=== PATIENT | female | born 1960 | race American Indian/Alaskan Native ===

== ENCOUNTER 2017-01-03 14:32 | Emergency (ER) | payer MEDICARE | END 2017-01-03 15:48 | disposition home or self-care (01) | LOC: ED 14:32 | DX: R11.2 Nausea with vomiting, unspecified (principal); K59.00 Constipation, unspecified; Z53.21 Procedure and treatment not carried out due to patient leaving prior to being seen by health care provider ==

== ENCOUNTER 2017-01-03 15:18 | Emergency (ER) | payer MEDICARE ==
[2017-01-03 15:47] VITALS: BP 141/81
[2017-01-03 16:02] LABS: Basophils % (Auto) 1.4 % (0.0-1.8); Eosinophils % (Auto) 1.3 % (0.0-4.3); Hemoglobin 12.7 gm/dl (10.1-14.3); Mean Corpuscular HGB Conc 33 % (30-34); Mean Corpuscular Hemoglobin 30 pg (28-32); Mean Corpuscular Volume 91 fl (79-97); Platelet Count 175 K/mm3 (140-440); Red Blood Count 4.27 M/mm3 (3.65-5.03); Red Cell Distribution Width 19.6 % (13.2-15.2); White Blood Count 6.5 K/mm3 (4.5-11.0)
[2017-01-03 16:31] LABS: BUN/Creatinine Ratio 8.25; Calcium 9.2 mg/dL (8.4-10.2); Chloride 97.4 mmol/L (98-107); Potassium 4.3 mmol/L (3.6-5.0)
== END 2017-01-03 23:00 | disposition left against medical advice (07) ==
LOC: ED 15:18
DX: R11.2 Nausea with vomiting, unspecified (principal); K59.00 Constipation, unspecified; R19.7 Diarrhea, unspecified; Z53.21 Procedure and treatment not carried out due to patient leaving prior to being seen by health care provider
CPT/HCPCS: 36415; 80048; 85025

== ENCOUNTER 2018-11-28 15:09 | Inpatient (IN) | payer MEDICARE ==
--- NOTE | 2018-11-28 15:37 | Event Note ---
ED Screening Note ED Screening Note: pt presents with N/V/D for two days generalized weakness dialysis pt states she last went on wednesday, did not go today family states she is at baseline son requesting [facility] placement PMHx HTN, DM, hyperparathyroidism no allergies to meds This initial assessment/diagnostic orders/clinical plan/treatment(s) is/are subject to change based on patients health status, clinical progression and re- assessment by fellow clinical providers in the ED. Further treatment and workup at subsequent clinical providers discretion. Patient/guardian urged not to elope from the ED as their condition may be serious if not clinically assessed and managed. Initial orders include: labs, urine, EKG
[2018-11-28] MEDS ORDERED: ZOFRAN ODT ONE (15:39)
[2018-11-28 18:42] LABS: Basophils # (Auto) 0.1 K/mm3 (0.0-0.1); Basophils % (Auto) 0.9 % (0.0-1.8); Eosinophils # (Auto) 0.1 K/mm3 (0.0-0.4); Eosinophils % (Auto) 0.9 % (0.0-4.3); Hematocrit 35.6 % (30.3-42.9); Hemoglobin 11.8 gm/dl (10.1-14.3); Lymphocytes # (Auto) 2.1 K/mm3 (1.2-5.4); Lymphocytes % (Auto) 26.8 % (13.4-35.0); Mean Corpuscular HGB Conc 33 % (30-34); Mean Corpuscular Volume 89 fl (79-97); Monocytes # (Auto) 0.5 K/mm3 (0.0-0.8); Monocytes % (Auto) 6.3 % (0.0-7.3); Platelet Count 126 K/mm3 (140-440); Red Blood Count 4.02 M/mm3 (3.65-5.03); Red Cell Distribution Width 16.3 % (13.2-15.2)
[2018-11-28 18:54] LABS: Albumin 3.6 g/dL (3.9-5); Calcium 9.2 mg/dL (8.4-10.2)
[2018-11-28 19:29] LABS: Chol/HDL Ratio 2.25 %
[2018-11-28] MEDS ORDERED: ZOFRAN ODT PO ONE (21:53)
--- NOTE | 2018-11-28 23:32 | Emergency Department Report ---
ED General Adult HPI - General Chief complaint: Weakness Stated complaint: WEAK/VOMITING AND BODY PAIN Time Seen by Provider: 11/28/18 15:33 Source: patient Mode of arrival: Wheelchair Limitations: Physical Limitation - History of Present Illness Initial comments: Ms. Moise is a 58 yo female with hx of ESRD, anemia, Diabetes mellitus who presents with nausea/vomiting and involuntary movements. She lives in [place]. HOwever, her son brought her to [place] on yesterday to be her caregiver. For the past 4-5 months, she has declined. She has had involuntary movements of her head. She has had nausea/vomiting. She had generalized pain. Referred to ED by loss prevention representative from [facility]. Son desires rehabilitation at [facility] to get her strength up. He does not know when she lasted walked. -: Gradual, month(s) (4-5) Consistency: constant Improves with: none Worsens with: none Associated Symptoms: loss of appetite, nausea/vomiting - Related Data Home Medications Medication Instructions Recorded Confirmed Last Taken Humalog 100 UNITS/ML Kwikpen 06/23/16 Unknown Insulin Glargine [Lantus VIAL] 06/23/16 Unknown Previous Rx's Medication Instructions Recorded Last Taken Type Calcitriol [Rocaltrol] 0.5 mcg PO QDAY #30 capsule 06/30/16 Unknown Rx Folic Acid/Vit B Comp W-C [Renal 1 cap PO QDAY #30 capsule 06/30/16 Unknown Rx Caps] Metoprolol [Lopressor TAB] 100 mg PO BID #60 tablet 06/30/16 Unknown Rx NIFEdipine XL [Procardia Xl] 60 mg PO Q12HR #60 tablet 06/30/16 Unknown Rx hydrALAZINE [Apresoline TAB] 100 mg PO Q8HR #90 tablet 06/30/16 Unknown Rx Allergies Allergy/AdvReac Type Severity Reaction Status Date / Time No Known Allergies Allergy Unverified 06/22/16 20:11 ED Review of Systems ROS: Stated complaint: WEAK/VOMITING AND BODY PAIN Other details as noted in HPI Comment: All other systems reviewed and negative Constitutional: malaise Gastrointestinal: nausea, vomiting Musculoskeletal: myalgia ED Past Medical Hx - Past Medical History Previous Medical History?: Yes Hx Hypertension: Yes Hx Congestive Heart Failure: No Hx Diabetes: Yes Hx GERD: Yes Hx Asthma: No Hx COPD: No - Surgical History Past Surgical History?: Yes Additional Surgical History: Blind Right eye - Social History Smoking Status: Unknown if ever smoked Substance Use Type: None - Medications Home Medications: Home Medications Medication Instructions Recorded Confirmed Last Taken Type Humalog 100 UNITS/ML Kwikpen 06/23/16 Unknown History Insulin Glargine [Lantus VIAL] 06/23/16 Unknown History Calcitriol [Rocaltrol] 0.5 mcg PO QDAY #30 capsule 06/30/16 Unknown Rx Folic Acid/Vit B Comp W-C [Renal 1 cap PO QDAY #30 capsule 06/30/16 Unknown Rx Caps] Metoprolol [Lopressor TAB] 100 mg PO BID #60 tablet 06/30/16 Unknown Rx NIFEdipine XL [Procardia Xl] 60 mg PO Q12HR #60 tablet 06/30/16 Unknown Rx hydrALAZINE [Apresoline TAB] 100 mg PO Q8HR #90 tablet 06/30/16 Unknown Rx ED Physical Exam - General Limitations: Physical Limitation General appearance: alert, in no apparent distress, other (appears chronically ill) - Head Head exam: Present: atraumatic, normocephalic - Eye Eye exam: Present: other (right eye enucleation evident). Absent: scleral icterus, conjunctival injection - ENT ENT exam: Present: mucous membranes moist - Neck Neck exam: Present: normal inspection, full ROM - Respiratory Respiratory exam: Present: normal lung sounds bilaterally. Absent: respiratory distress, wheezes, rales, rhonchi, stridor - Cardiovascular Cardiovascular Exam: Present: regular rate, normal rhythm, normal heart sounds. Absent: systolic murmur, diastolic murmur, rubs, gallop - GI/Abdominal GI/Abdominal exam: Present: soft, normal bowel sounds. Absent: distended, tenderness, guarding, rebound - Extremities Exam Extremities exam: Present: normal inspection - Neurological Exam Neurological exam: Present: alert, oriented X3 - Psychiatric Psychiatric exam: Present: normal mood, flat affect - Skin Skin exam: Present: warm, dry, intact, normal color. Absent: rash ED Course Vital Signs 11/28/18 15:36 Temperature 98.5 F Pulse Rate 95 H Respiratory 18 Rate Blood Pressure 109/57 O2 Sat by Pulse 97 Oximetry ED Medical Decision Making - Lab Data Result diagrams: 11/28/18 17:59 11/28/18 17:59 - EKG Data 11/28/18 23:31 EKG obtained 2131 Normal sinus rhythm rate 90 beats a minute normal axis prolonged QT interval no ST elevation - Radiology Data Radiology results: report reviewed - Medical Decision Making Ms. Moise is a 58 yo female who has had declining health over the past several months. Son Eric has spoken with loss prevention representative from [facility]. The loss prevention representative recommended evaluation in the hospital and admission before placement. The multiple concerns of the son does not appear to be acute. 1. Inability to walk due to poor conditioning she has intact strength in the lower extremities, however she is frail 2. Involuntary movements of the head appears to be intermittent, will need outpatient neurology workup 3. Nausea vomiting, poor appetite. No vomiting in the ED. No indication of obstruction. I spoke with son at length. No evidence of acute medical condition which needs stabilization in the emergency department. He has arranged for outpatient dialysis. He also has a new PCP appointment on next Wednesday. We will keep the patient in the ER overnight. She will see case management tomorrow. She is medically clear for either placement at a [place] [facility] facility for rehabilitation. She is also appropriate for discharge home. Elevated troponin attributed to renal disease. No indication of acute coronary syndrome. Critical care attestation.: If time is entered above; I have spent that time in minutes in the direct care of this critically ill patient, excluding procedure time. ED Disposition Clinical Impression: ESRD needing dialysis, Physical deconditioning, Nausea & vomiting, Involuntary movements, Diabetes mellitus Disposition: [id number]/TX-70 ANOTHER TYPE HLTHCARE Is pt being admited?: No Does the pt Need Aspirin: No Condition: Stable Referrals: DORIS ARDON MD [Primary Care Provider] - 3-5 Days
[2018-11-28] MEDS ORDERED: ZOFRAN IV ONE (23:39)
[2018-11-29] MEDS ORDERED: ZOFRAN ONE (06:27)
[2018-11-29] MEDS ORDERED: TYLENOL PO PRN (13:40)
[2018-11-29] MEDS ORDERED: SODIUM CHLORIDE FLUSH SYRINGE 10 ML IV PRN (13:40)
[2018-11-29] MEDS ORDERED: ZOFRAN IV PRN (13:40)
--- NOTE | 2018-11-29 13:53 | History and Physical Report ---
History of Present Illness Chief complaint: She is weak History of present illness: 58 YO Female with ESRD on HD(M,W,F), Anemia, DM, Debility, Dementia presents to ED for evaluation. Pt provides minimal history. Detailed patient history provided by son who is at bedside during exam and interview. As per son, the patient has experienced progressive weakness over the past 5 months. Pt was recently relocated to the [place] area, but has experienced continued decline. Pt is currently unable to independently conduct activities of daily living, and requires 4-5/6 Assistance. Pt is bedbound, and unable to ambulate. Pt was taken to dialysis center for routine dialysis, but was unable to undergo dialysis. Pt transported to [facility] by private vehicle. Pt seen and evaluated in ED and found to have ESRD, Debility, Hypertensive Urgency. Pt admitted to medical floor. Prior admission on 06/23/16 reviewed. Nephrology consulted in ED for urgent dialysis. Case management consulted for D/C planning and placement. No further history obtainable. Past History Past Medical History: diabetes, ESRD, GERD, hypertension, other (Debility,) Past Surgical History: Other (Right Eye) Social history: , lives with family. denies: smoking, alcohol abuse, prescription drug abuse Family history: diabetes, hypertension Medications and Allergies Allergies Allergy/AdvReac Type Severity Reaction Status Date / Time No Known Allergies Allergy Unverified 06/22/16 20:11 Home Medications Medication Instructions Recorded Confirmed Last Taken Type AtorvaSTATin [Lipitor] 10 mg PO QHS 11/29/18 11/29/18 Unknown History Hydralazine HCl 50 mg PO DAILY 11/29/18 11/29/18 Unknown History Losartan [Cozaar] 25 mg PO QDAY 11/29/18 11/29/18 Unknown History Metoclopramide HCl [Reglan TAB] 5 mg PO QID 11/29/18 11/29/18 Unknown History Metoprolol Succinate 200 mg PO DAILY 11/29/18 11/29/18 Unknown History Minoxidil [Loniten] 2.5 mg PO BID 11/29/18 11/29/18 Unknown History Ondansetron [Zofran Odt] 4 mg PO Q8HR 11/29/18 11/29/18 Unknown History Pantoprazole [Protonix TAB] 20 mg QDAY 11/29/18 11/29/18 Unknown History Sertraline [Zoloft] 50 mg PO QDAY 11/29/18 11/29/18 Unknown History Sevelamer Carbonate [Renvela] 800 mg PO TIDWM 11/29/18 11/29/18 Unknown History Valsartan [Diovan] 320 mg PO QDAY 11/29/18 11/29/18 Unknown History amLODIPine [Norvasc] 10 mg PO DAILY 11/29/18 11/29/18 Unknown History Active Meds: Active Medications Acetaminophen (Tylenol) 650 mg PO Q4H PRN PRN Reason: Pain MILD(1-3)/Fever >100.5/POWERS Ondansetron HCl (Zofran) 4 mg IV Q8H PRN PRN Reason: Nausea And Vomiting Sodium Chloride (Sodium Chloride Flush Syringe 10 Ml) 10 ml IV BID SALTY Sodium Chloride (Sodium Chloride Flush Syringe 10 Ml) 10 ml IV PRN PRN PRN Reason: LINE FLUSH Review of Systems ROS unobtainable: due to mental status Exam - Constitutional Vitals: Temp Pulse Resp BP Pulse Ox 98.5 F 79 15 179/83 100 11/28/18 15:36 11/29/18 08:10 11/29/18 08:10 11/29/18 08:10 11/29/18 08:10 General appearance: Present: mild distress, cachectic - EENT Eyes: Present: PERRL ENT: hearing intact, clear oral mucosa - Neck Neck: Present: supple, normal ROM - Respiratory Respiratory effort: normal Respiratory: bilateral: CTA - Cardiovascular Heart Sounds: Present: S1 & S2. Absent: rub, click - Extremities Extremities: pulses symmetrical, No edema Peripheral Pulses: within normal limits - Abdominal General gastrointestinal: Present: soft, non-tender, non-distended, normal bowel sounds Female genitourinary: Present: normal - Integumentary Integumentary: Present: clear, dry, decreased turgor - Musculoskeletal Musculoskeletal: generalized weakness - Psychiatric Psychiatric: appropriate mood/affect, no intact judgment & insight, no memory intact - Neurologic Neurologic: CNII-XII intact, moves all extremities, no gait normal Results - Labs CBC & Chem 7: 11/28/18 17:59 11/28/18 17:59 Labs: Abnormal lab results 11/28/18 11/28/18 11/28/18 Range/Units 17:59 17:59 22:30 RDW 16.3 H (13.2-15.2) % Plt Count 126 L (140-440) K/mm3 Sodium 136 L (137-145) mmol/L Potassium 3.5 L (3.6-5.0) mmol/L BUN 36 H (7-17) mg/dL Creatinine 6.5 H (0.7-1.2) mg/dL Troponin T 0.243 H* 0.256 H* (0.00-0.029) ng/mL Albumin 3.6 L (3.9-5) g/dL Assessment and Plan - Patient Problems (1) ESRD needing dialysis Current Visit: Yes Status: Acute Plan to address problem: Nephrology consulted in ED, dialysis as per renal team, strict I/O, daily weight, monitor uop q shift, avoid nephrotoxic agents (2) Debility Current Visit: Yes Status: Acute Plan to address problem: PT consulted, fall percautions, neuro checks. (3) GERD (gastroesophageal reflux disease) Current Visit: Yes Status: Acute Qualifiers: Esophagitis presence: without esophagitis Qualified Code(s): K21.9 - Gastro-esophageal reflux disease without esophagitis Plan to address problem: PPI therapy, (4) Hypertensive urgency, malignant Current Visit: Yes Status: Acute Plan to address problem: Monitor BP q shift, dialysis as per renal team, IV hydralazine prn, resume prehospital antihypertensive therapy (5) Diabetes mellitus Current Visit: Yes Status: Acute Plan to address problem: ADA diet, insulin, accu check, hypoglycemia protocol (6) DVT prophylaxis Current Visit: Yes Status: Acute Plan to address problem: SCD to BLE while in bed, prophylactic heparin
[2018-11-29] MEDS ORDERED: NACL 0.9% 100 ML IV PRN (14:50)
[2018-11-29] MEDS ORDERED: NON-FORMULARY (Metoclopramide Hcl [Reglan Tab] 5 MG) PO SCH (18:00)
--- NOTE | 2018-11-29 19:45 | Consultation ---
History of Present Illness - Reason for Consult Consult date: 11/29/18 end stage renal disease - History of Present Illness The patient is a 56 year old AAF who is known to our service with history significant for DM type 2, HTN, Diabetic Retinopathy, CVA and ESRD on hemodialysis (MWF) who presented to the emergency department by EMS from home with complaint of nausea, vomiting and involuntary movements. She moved to [place] with her son about 10 days ago. Patient is a very poor historian and no family member at the bedside. For the past 4-5 months she has declined. She has involuntary movements of her head and has generalized pain. Patient was last dialyzed on 11/25/2018 and missed dialysis yesterday. Patient's son wants me to take care of his dialysis care since I know her in the past. Past History Past Medical History: diabetes, dialysis, ESRD, hypertension, hyperlipidemia Medications and Allergies Allergies Allergy/AdvReac Type Severity Reaction Status Date / Time No Known Allergies Allergy Unverified 06/22/16 20:11 Home Medications Medication Instructions Recorded Confirmed Last Taken Type AtorvaSTATin [Lipitor] 10 mg PO QHS 11/29/18 11/29/18 Unknown History Hydralazine HCl 50 mg PO DAILY 11/29/18 11/29/18 Unknown History Losartan [Cozaar] 25 mg PO QDAY 11/29/18 11/29/18 Unknown History Metoclopramide HCl [Reglan TAB] 5 mg PO QID 11/29/18 11/29/18 Unknown History Metoprolol Succinate 200 mg PO DAILY 11/29/18 11/29/18 Unknown History Minoxidil [Loniten] 2.5 mg PO BID 11/29/18 11/29/18 Unknown History Ondansetron [Zofran Odt] 4 mg PO Q8HR 11/29/18 11/29/18 Unknown History Pantoprazole [Protonix TAB] 20 mg QDAY 11/29/18 11/29/18 Unknown History Sertraline [Zoloft] 50 mg PO QDAY 11/29/18 11/29/18 Unknown History Sevelamer Carbonate [Renvela] 800 mg PO TIDWM 11/29/18 11/29/18 Unknown History Valsartan [Diovan] 320 mg PO QDAY 11/29/18 11/29/18 Unknown History amLODIPine [Norvasc] 10 mg PO DAILY 11/29/18 11/29/18 Unknown History Active Meds: Active Medications Acetaminophen (Tylenol) 650 mg PO Q4H PRN PRN Reason: Pain MILD(1-3)/Fever >100.5/POWERS Amlodipine Besylate (Norvasc) 10 mg PO DAILY [facility] Atorvastatin Calcium (Lipitor) 10 mg PO QHS [facility] Sodium Chloride (Nacl 0.9%) 100 mls @ 999 mls/hr IV PARMJIT PRN PRN Reason: Hypotension Losartan Potassium (Cozaar) 25 mg PO QDAY [facility] Metoclopramide HCl (Reglan) 5 mg PO QID [facility] Metoprolol Succinate (Toprol Xl) 200 mg PO QDAY [facility] Minoxidil (Loniten) 2.5 mg PO BID [facility] Miscellaneous Medication (Hydralazine Hcl [Hydralazine Hcl]) 50 mg PO DAILY [facility] Ondansetron HCl (Zofran) 4 mg IV Q8H PRN PRN Reason: Nausea And Vomiting Ondansetron HCl (Zofran Odt) 4 mg PO Q8HR [facility] Pantoprazole Sodium (Protonix) 20 mg PO QDAY [facility] Sertraline HCl (Zoloft) 50 mg PO QDAY [facility] Sevelamer Carbonate (Renvela) 800 mg PO TIDWM [facility] Sodium Chloride (Sodium Chloride Flush Syringe 10 Ml) 10 ml IV BID [facility] Sodium Chloride (Sodium Chloride Flush Syringe 10 Ml) 10 ml IV PRN PRN PRN Reason: LINE FLUSH Valsartan (Diovan) 320 mg PO QDAY [facility] Review of Systems ROS unobtainable: due to mental status Exam - Vital Signs Vital signs: Vital Signs Temp Pulse Resp BP Pulse Ox 98.5 F 95 H 18 109/57 97 11/28/18 15:36 11/28/18 15:36 11/28/18 15:36 11/28/18 15:36 11/28/18 15:36 - General Appearance General appearance: well-developed, appears stated age, other (no distress) EENT: ATNC, PERRL, mucous membranes dry Neck: Present: neck supple, trachea midline Respiratory: Clear to Ascultation Heart: regular, S1S2, no murmurs Gastrointestinal: Present: normoactive bowel sounds. Absent: tenderness, distended Integumentary: no rash, warm and dry Neurologic: confused, disoriented, other (L UE weakness, involuntary movements of the head noted) Musculoskeletal: Present: other (L hand contractures noted, L arm AVF) Results - Lab Results 11/28/18 17:59 11/28/18 17:59 Most recent lab results Calcium 9.2 mg/dL (8.4-10.2) 11/28/18 17:59 Phosphorus 3.20 mg/dL (2.5-4.5) 11/28/18 17:59 Magnesium 2.10 mg/dL (1.7-2.3) 11/28/18 17:59 Assessment and Plan 1. ESRD: Patient is on maintenance hemodialysis three times a week. She missed HD yesterday. Hemodialysis today, orders placed. 2. FEN: Appears volume depleted. No UF with HD. Monitor. 3. Nausea & vomiting. 4. Involuntary movements. 5. Diabetes mellitus. 6. Hypertension. 7. Physical deconditioning.
[2018-11-29 22:01] LABS: Hepatitis B Surface Antigen Non-Reactive (Negative); Hepatitis C Virus Antibody Non-Reactive (NonReactive)
[2018-11-29] MEDS ORDERED: CATAPRES PO PRN (22:41)
[2018-11-29] MEDS: REGLAN PO SCH (22:44)
[2018-11-29] MEDS: LONITEN PO SCH (22:45)
[2018-11-29] MEDS: ZOFRAN ODT PO SCH (22:45)
[2018-11-29] MEDS: SODIUM CHLORIDE FLUSH SYRINGE 10 ML IV SCH (22:45)
[2018-11-29] MEDS: NORVASC PO SCH (23:24)
[2018-11-29] MEDS: TOPROL XL PO SCH (23:24)
[2018-11-29] MEDS: APRESOLINE PO SCH (23:24)
[2018-11-29] MEDS: COZAAR PO SCH (23:24)
[2018-11-29] MEDS: DIOVAN PO SCH (23:24)
[2018-11-30] MEDS: APRESOLINE PO SCH ×2 (01:31→11:27)
[2018-11-30] MEDS: TOPROL XL PO SCH ×2 (01:31→11:17)
[2018-11-30] MEDS: ZOFRAN ODT PO SCH ×2 (05:59→13:22)
--- NOTE | 2018-11-30 09:11 | Progress Note ---
Assessment and Plan 1. ESRD: Patient is on maintenance hemodialysis three times a week. She was last dialyzed yesterday. 2. FEN: Appears volume depleted. Monitor. 3. Nausea & vomiting. 4. Involuntary movements. 5. Diabetes mellitus. 6. Hypertension. 7. Physical deconditioning. Subjective Date of service: 11/30/18 Interval history: Patient was seen and examined at the bedside. Objective - Vital Signs Vital signs: Vital Signs - 12hr 11/29/18 11/29/18 11/29/18 22:30 22:34 22:37 Temperature 98.3 F Pulse Rate 83 86 86 Respiratory 18 18 18 Rate Blood Pressure 233/102 172/91 Blood Pressure 172/91 [Right] O2 Sat by Pulse 100 100 100 Oximetry 11/30/18 11/30/18 11/30/18 01:21 01:29 01:30 Temperature Pulse Rate 87 84 Respiratory 18 18 Rate Blood Pressure 173/85 162/79 Blood Pressure [Right] O2 Sat by Pulse 100 Oximetry 11/30/18 11/30/18 11/30/18 01:31 04:30 05:57 Temperature 97.7 F Pulse Rate 84 76 69 Respiratory 18 18 Rate Blood Pressure 162/79 147/80 160/80 Blood Pressure [Right] O2 Sat by Pulse 100 100 Oximetry - General Appearance General appearance: well-developed, appears stated age, other (no distress, emaciated) EENT: ATNC, hearing intact, other (L eye sclerotic) Respiratory: Present: Clear to Ascultation Cardiology: regular, S1S2, no murmurs Gastrointestinal: normoactive bowel sounds, no tenderness, no distended Integumentary: no rash, warm and dry Neurologic: confused, disoriented, other (L UE weakness noted, involuntary head movement noted) Musculoskeletal: other (L hand contarcture noted, L arm AVF) - Lab 11/28/18 17:59 11/28/18 17:59 Most recent lab results Calcium 9.2 mg/dL (8.4-10.2) 11/28/18 17:59 Phosphorus 3.20 mg/dL (2.5-4.5) 11/28/18 17:59 Magnesium 2.10 mg/dL (1.7-2.3) 11/28/18 17:59 Medications & Allergies - Medications Allergies/Adverse Reactions: Allergies No Known Allergies Allergy (Unverified 06/22/16 20:11) Home Medications: Home Medications Medication Instructions Recorded Confirmed Last Taken Type AtorvaSTATin [Lipitor] 10 mg PO QHS 11/29/18 11/29/18 Unknown History Hydralazine HCl 50 mg PO DAILY 11/29/18 11/29/18 Unknown History Losartan [Cozaar] 25 mg PO QDAY 11/29/18 11/29/18 Unknown History Metoclopramide HCl [Reglan TAB] 5 mg PO QID 11/29/18 11/29/18 Unknown History Metoprolol Succinate 200 mg PO DAILY 11/29/18 11/29/18 Unknown History Minoxidil [Loniten] 2.5 mg PO BID 11/29/18 11/29/18 Unknown History Ondansetron [Zofran Odt] 4 mg PO Q8HR 11/29/18 11/29/18 Unknown History Pantoprazole [Protonix TAB] 20 mg QDAY 11/29/18 11/29/18 Unknown History Sertraline [Zoloft] 50 mg PO QDAY 11/29/18 11/29/18 Unknown History Sevelamer Carbonate [Renvela] 800 mg PO TIDWM 11/29/18 11/29/18 Unknown History Valsartan [Diovan] 320 mg PO QDAY 11/29/18 11/29/18 Unknown History amLODIPine [Norvasc] 10 mg PO DAILY 11/29/18 11/29/18 Unknown History Active Medications: Generic Name Dose Route Start Last Admin Trade Name Freq PRN Reason Stop Dose Admin Acetaminophen 650 mg 11/29/18 13:40 Tylenol PO Q4H PRN Pain MILD(1-3)/Fever >100.5/POWERS Amlodipine Besylate 10 mg 11/29/18 23:00 11/29/18 23:24 Norvasc PO 10 mg DAILY SALTY Administration Atorvastatin Calcium 10 mg 11/29/18 22:00 11/29/18 22:45 Lipitor PO 10 mg QHS SALTY Administration Clonidine HCl 0.1 mg 11/29/18 22:41 Catapres PO Q4H PRN Increased Blood Pressure Heparin Sodium (Porcine) 5,000 unit 11/30/18 10:00 Heparin SUB-Q Q12HR SALTY Hydralazine HCl 50 mg 11/29/18 23:00 11/30/18 01:31 Apresoline PO 50 mg DAILY SALTY Administration Sodium Chloride 100 mls @ 999 mls/hr 11/29/18 14:50 Nacl 0.9% IV PARMJIT PRN Hypotension Losartan Potassium 25 mg 11/29/18 23:00 11/29/18 23:24 Cozaar PO 25 mg QDAY SALTY Administration Metoclopramide HCl 5 mg 11/29/18 22:00 11/29/18 22:44 Reglan PO 5 mg QID SALTY Administration Metoprolol Succinate 200 mg 11/29/18 23:00 11/30/18 01:31 Toprol Xl PO 200 mg QDAY SALTY Administration Minoxidil 2.5 mg 11/29/18 22:00 11/29/18 22:45 Loniten PO 2.5 mg BID SALTY Administration Ondansetron HCl 4 mg 11/29/18 13:40 Zofran IV Q8H PRN Nausea And Vomiting Ondansetron HCl 4 mg 11/29/18 22:00 11/30/18 05:59 Zofran Odt PO 4 mg Q8HR SALTY Administration Pantoprazole Sodium 20 mg 11/30/18 10:00 Protonix PO QDAY SALTY Sertraline HCl 50 mg 11/30/18 10:00 Zoloft PO QDAY SALTY Sevelamer Carbonate 800 mg 11/30/18 08:00 Renvela PO TIDWM SALTY Sodium Chloride 10 ml 11/29/18 22:00 11/29/18 22:45 Sodium Chloride Flush Syringe 10 Ml IV 10 ml BID SALTY Administration Sodium Chloride 10 ml 11/29/18 13:40 Sodium Chloride Flush Syringe 10 Ml IV PRN PRN LINE FLUSH Valsartan 320 mg 11/29/18 23:00 11/29/18 23:24 Diovan PO Not Given QDAY [facility]TY
[2018-11-30] MEDS: RENVELA PO SCH ×3 (09:30→20:00)
[2018-11-30] MEDS ORDERED: NON-FORMULARY (Hydralazine Hcl [Hydralazine Hcl] 50 MG) PO SCH (10:00)
[2018-11-30] MEDS ORDERED: METOPROLOL SUCCINATE 200 MG PO SCH (10:00)
[2018-11-30] MEDS ORDERED: NON-FORMULARY (Valsartan [Diovan] 320 MG) PO SCH (10:00)
[2018-11-30] MEDS: REGLAN PO SCH ×3 (11:15→19:56)
[2018-11-30] MEDS: LONITEN PO SCH (11:16)
[2018-11-30] MEDS: PROTONIX PO SCH (11:16)
[2018-11-30] MEDS: COZAAR PO SCH (11:16)
[2018-11-30] MEDS: DIOVAN PO SCH (11:17)
[2018-11-30] MEDS: NORVASC PO SCH (11:17)
[2018-11-30] MEDS: ZOLOFT PO SCH (11:18)
[2018-11-30] MEDS: SODIUM CHLORIDE FLUSH SYRINGE 10 ML IV SCH (11:18)
[2018-11-30] MEDS: HEPARIN SUB-Q SCH (11:42)
[2018-11-30] MEDS ORDERED: D50W (25GM) Syringe IV PRN (12:35)
--- NOTE | 2018-11-30 18:26 | Progress Note ---
Assessment and Plan - Patient Problems (1) Debility Current Visit: Yes Status: Acute Plan to address problem: She has debility multifactorial a lot of it has to do with hemodialysis and underlying renal disease and the fact that she missed dialysis however some most likely secondary to mild to moderate malnutrition and significant cognitive impairment. She'll most likely need custodial facility. To assist with ADLs. (2) Diabetes mellitus Current Visit: Yes Status: Acute Plan to address problem: Patient did have episode of hypoglycemia but now blood sugars have been relatively well controlled. Will follow with sliding scale insulin with cov erage when indicated. (3) ESRD needing dialysis Current Visit: Yes Status: Acute Plan to address problem: Patient will require hemodialysis. Consult is been obtained. (4) GERD (gastroesophageal reflux disease) Current Visit: Yes Status: Resolved Qualifiers: Esophagitis presence: without esophagitis Qualified Code(s): K21.9 - Gastro-esophageal reflux disease without esophagitis (5) Hypertensive urgency, malignant Current Visit: Yes Status: Acute Plan to address problem: Patient currently has optimal control of blood pressure. Continue antihypertensives. Dialysis will help. (6) Nausea & vomiting Current Visit: Yes Status: Resolved History Interval history: Patient with history of end-stage renal disease, anemia, diabetes and debility dementia presents with disability over the past 5 months. Patient's son could no longer assists with patient's ADLs. Patient at present is nice alert however difficulty getting out of bed sitting up. Patient will require placement. Patient was scheduled for hemodialysis but missed dialysis and this caused inability to progress and get worse. Present patient states she feels alright okay. No pain just generalized weakness. Poor historian from cognitive impairment. Hospitalist Physical - Constitutional Vitals: Temp Pulse Resp BP Pulse Ox 98.0 F 63 20 129/72 100 11/30/18 12:31 11/30/18 12:31 11/30/18 12:31 11/30/18 12:31 11/30/18 12:31 General appearance: Present: mild distress, cachectic - EENT Eyes: Present: PERRL, EOM intact ENT: hearing intact, clear oral mucosa, oropharyngeal erythema, poor dentition, other (right eye blindness.), no dentition normal, no thrush - Neck Neck: Present: supple, normal ROM - Respiratory Respiratory effort: normal Respiratory: bilateral: CTA - Cardiovascular Rhythm: regular - Extremities Extremities: no ischemia, pulses intact, pulses symmetrical, No edema, normal temperature, normal color, Full ROM Peripheral Pulses: within normal limits - Abdominal General gastrointestinal: soft, non-tender, non-distended, normal bowel sounds, no distended, no rigid, no hypoactive bowel sounds, no absent bowel sounds, no hepatomegaly, no splenomegaly - Integumentary Integumentary: Present: clear, warm, dry - Psychiatric Psychiatric: appropriate mood/affect, other (cognitive impairment.) - Neurologic Neurologic: CNII-XII intact, moves all extremities Results - Labs CBC & Chem 7: 11/28/18 17:59 11/28/18 17:59 Labs: Laboratory Last Values WBC 7.8 K/mm3 (4.5-11.0) 11/28/18 17:59 RBC 4.02 M/mm3 (3.65-5.03) 11/28/18 17:59 Hgb 11.8 gm/dl (10.1-14.3) 11/28/18 17:59 Hct 35.6 % (30.3-42.9) 11/28/18 17:59 MCV 89 fl (79-97) 11/28/18 17:59 MCH 29 pg (28-32) 11/28/18 17:59 MCHC 33 % (30-34) 11/28/18 17:59 RDW 16.3 % (13.2-15.2) H 11/28/18 17:59 Plt Count 126 K/mm3 (140-440) L 11/28/18 17:59 Lymph % (Auto) 26.8 % (13.4-35.0) 11/28/18 17:59 Trigg % (Auto) 6.3 % (0.0-7.3) 11/28/18 17:59 Eos % (Auto) 0.9 % (0.0-4.3) 11/28/18 17:59 Baso % (Auto) 0.9 % (0.0-1.8) 11/28/18 17:59 Lymph # 2.1 K/mm3 (1.2-5.4) 11/28/18 17:59 Trigg # 0.5 K/mm3 (0.0-0.8) 11/28/18 17:59 Eos # 0.1 K/mm3 (0.0-0.4) 11/28/18 17:59 Baso # 0.1 K/mm3 (0.0-0.1) 11/28/18 17:59 Seg Neutrophils % 65.1 % (40.0-70.0) 11/28/18 17:59 Seg Neutrophils # 5.1 K/mm3 (1.8-7.7) 11/28/18 17:59 Sodium 136 mmol/L (137-145) L 11/28/18 17:59 Potassium 3.5 mmol/L (3.6-5.0) L 11/28/18 17:59 Chloride 98.8 mmol/L (98-107) 11/28/18 17:59 Carbon Dioxide 22 mmol/L (22-30) 11/28/18 17:59 19 mmol/L 11/28/18 17:59 BUN 36 mg/dL (7-17) H 11/28/18 17:59 6.5 mg/dL (0.7-1.2) H 11/28/18 17:59 Estimated GFR 8 ml/min 11/28/18 17:59 6 % 11/28/18 17:59 Glucose 86 mg/dL (65-100) 11/28/18 17:59 POC Glucose 158 (70-105) H 11/30/18 16:54 Calcium 9.2 mg/dL (8.4-10.2) 11/28/18 17:59 Phosphorus 3.20 mg/dL (2.5-4.5) 11/28/18 17:59 Magnesium 2.10 mg/dL (1.7-2.3) 11/28/18 17:59 0.50 mg/dL (0.1-1.2) 11/28/18 17:59 AST 18 units/L (5-40) 11/28/18 17:59 ALT 7 units/L (7-56) 11/28/18 17:59 72 units/L (35-129) 11/28/18 17:59 0.256 ng/mL (0.00-0.029) H* 11/28/18 22:30 6.4 g/dL (6.3-8.2) 11/28/18 17:59 3.6 g/dL (3.9-5) L 11/28/18 17:59 1.3 % 11/28/18 17:59 Triglycerides 96 mg/dL (2-149) 11/28/18 17:59 Cholesterol 131 mg/dL (50-199) 11/28/18 17:59 64 mg/dL (50-130) 11/28/18 17:59 58 mg/dL (40-59) 11/28/18 17:59 2.25 % 11/28/18 17:59 13 units/L (13-60) 11/28/18 17:59 Hepatitis A IgM Ab Non-reactive (NonReactive) 11/29/18 21:02 Hep Bs Antigen Non-reactive (Negative) 11/29/18 21:02 Hep B Core IgM Ab Non-reactive (NonReactive) 11/29/18 21:02 Non-reactive (NonReactive) 11/29/18 21:02 Active Medications - Current Medications Current Medications: Generic Name Dose Route Start Last Admin Trade Name Freq PRN Reason Stop Dose Admin Acetaminophen 650 mg 11/29/18 13:40 Tylenol PO Q4H PRN Pain MILD(1-3)/Fever >100.5/POWERS Amlodipine Besylate 10 mg 11/29/18 23:00 11/30/18 11:17 Norvasc PO 10 mg DAILY SALTY Administration Atorvastatin Calcium 10 mg 11/29/18 22:00 11/29/18 22:45 Lipitor PO 10 mg QHS SALTY Administration Clonidine HCl 0.1 mg 11/29/18 22:41 Catapres PO Q4H PRN Increased Blood Pressure Dextrose 50 ml 11/30/18 12:35 D50w (25gm) Syringe IV PRN PRN Hypoglycemia Heparin Sodium (Porcine) 5,000 unit 11/30/18 10:00 11/30/18 11:42 Heparin SUB-Q 5,000 unit Q12HR SALTY Administration Hydralazine HCl 50 mg 11/29/18 23:00 11/30/18 11:27 Apresoline PO 50 mg DAILY SALTY Administration Sodium Chloride 100 mls @ 999 mls/hr 11/29/18 14:50 Nacl 0.9% IV PARMJIT PRN Hypotension Insulin Human Lispro 0 unit 11/30/18 16:30 Humalog SUB-Q ACHS SALTY Protocol Losartan Potassium 25 mg 11/29/18 23:00 11/30/18 11:16 Cozaar PO 25 mg QDAY SALTY Administration Metoclopramide HCl 5 mg 11/29/18 22:00 11/30/18 13:22 Reglan PO 5 mg QID SALTY Administration Metoprolol Succinate 200 mg 11/29/18 23:00 11/30/18 11:17 Toprol Xl PO 200 mg QDAY SALTY Administration Minoxidil 2.5 mg 11/29/18 22:00 11/30/18 11:16 Loniten PO 2.5 mg BID SALTY Administration Ondansetron HCl 4 mg 11/29/18 13:40 Zofran IV Q8H PRN Nausea And Vomiting Ondansetron HCl 4 mg 11/29/18 22:00 11/30/18 13:22 Zofran Odt PO 4 mg Q8HR SALTY Administration Pantoprazole Sodium 20 mg 11/30/18 10:00 11/30/18 11:16 Protonix PO 20 mg QDAY SALTY Administration Sertraline HCl 50 mg 11/30/18 10:00 11/30/18 11:18 Zoloft PO 50 mg QDAY SALTY Administration Sevelamer Carbonate 800 mg 11/30/18 08:00 11/30/18 13:22 Renvela PO 800 mg TIDWM SALTY Administration Sodium Chloride 10 ml 11/29/18 22:00 11/30/18 11:18 Sodium Chloride Flush Syringe 10 Ml IV 10 ml BID SALTY Administration Sodium Chloride 10 ml 11/29/18 13:40 Sodium Chloride Flush Syringe 10 Ml IV PRN PRN LINE FLUSH Valsartan 320 mg 11/29/18 23:00 11/30/18 11:17 Diovan PO 320 mg QDAY SALTY Administration
[2018-11-30] MEDS: HumaLOG SUB-Q SCH (19:00)
[2018-12-01] MEDS: REGLAN PO SCH ×5 (00:45→22:37)
[2018-12-01] MEDS: LONITEN PO SCH ×3 (00:45→22:37)
[2018-12-01] MEDS: HEPARIN SUB-Q SCH ×3 (00:46→22:38)
[2018-12-01] MEDS: ZOFRAN ODT PO SCH ×4 (00:46→22:37)
[2018-12-01] MEDS: SODIUM CHLORIDE FLUSH SYRINGE 10 ML IV SCH ×3 (00:59→22:38)
[2018-12-01] MEDS: HumaLOG SUB-Q SCH ×5 (01:00→22:30)
[2018-12-01 05:02] LABS: Basophils % (Auto) 1.1 % (0.0-1.8); Eosinophils # (Auto) 0.1 K/mm3 (0.0-0.4); Eosinophils % (Auto) 2.9 % (0.0-4.3); Hematocrit 33.7 % (30.3-42.9); Hemoglobin 11.2 gm/dl (10.1-14.3); Lymphocytes # (Auto) 1.1 K/mm3 (1.2-5.4); Mean Corpuscular HGB Conc 33 % (30-34); Mean Corpuscular Volume 88 fl (79-97); Monocytes # (Auto) 0.3 K/mm3 (0.0-0.8); Monocytes % (Auto) 7.4 % (0.0-7.3); Platelet Count 124 K/mm3 (140-440); Red Blood Count 3.84 M/mm3 (3.65-5.03); Red Cell Distribution Width 15.9 % (13.2-15.2)
[2018-12-01 05:22] LABS: Calcium 8.1 mg/dL (8.4-10.2)
[2018-12-01] MEDS: RENVELA PO SCH ×3 (08:00→17:00)
--- NOTE | 2018-12-01 10:19 | Progress Note ---
Assessment and Plan 1. ESRD: Patient is on maintenance hemodialysis three times a week, MWF schedule. She was last dialyzed 2 days ago. Plan for dialysis tomorrow. 2. FEN: Appears volume depleted. Monitor. 3. Nausea & vomiting: Improved. 4. Involuntary movements. 5. Diabetes mellitus. 6. Hypertension. 7. Physical deconditioning. Subjective Date of service: 12/01/18 Interval history: Patient was seen and examined at the bedside. Objective - Vital Signs Vital signs: Vital Signs - 12hr 12/01/18 05:38 Temperature 98.0 F Pulse Rate 61 Respiratory 16 Rate Blood Pressure 114/57 [Right] O2 Sat by Pulse 98 Oximetry - General Appearance General appearance: well-developed, appears stated age, other (no distress) EENT: ATNC, other (L eye sclerotic) Respiratory: Present: Clear to Ascultation Cardiology: regular, S1S2, no murmurs Gastrointestinal: normoactive bowel sounds, no tenderness, no distended Integumentary: no rash, warm and dry Neurologic: confused, disoriented, other (L UE weakness noted, intermittent involuntary movements of the head) Musculoskeletal: other (L hand contractures noted, L arm AVF) - Lab 12/01/18 04:42 12/01/18 04:42 Most recent lab results Calcium 8.1 mg/dL (8.4-10.2) L 12/01/18 04:42 Phosphorus 3.30 mg/dL (2.5-4.5) 12/01/18 04:42 Magnesium 2.10 mg/dL (1.7-2.3) 11/28/18 17:59 Medications & Allergies - Medications Allergies/Adverse Reactions: Allergies No Known Allergies Allergy (Unverified 06/22/16 20:11) Home Medications: Home Medications Medication Instructions Recorded Confirmed Last Taken Type AtorvaSTATin [Lipitor] 10 mg PO QHS 11/29/18 11/29/18 Unknown History Hydralazine HCl 50 mg PO DAILY 11/29/18 11/29/18 Unknown History Losartan [Cozaar] 25 mg PO QDAY 11/29/18 11/29/18 Unknown History Metoclopramide HCl [Reglan TAB] 5 mg PO QID 11/29/18 11/29/18 Unknown History Metoprolol Succinate 200 mg PO DAILY 11/29/18 11/29/18 Unknown History Minoxidil [Loniten] 2.5 mg PO BID 11/29/18 11/29/18 Unknown History Ondansetron [Zofran Odt] 4 mg PO Q8HR 11/29/18 11/29/18 Unknown History Pantoprazole [Protonix TAB] 20 mg QDAY 11/29/18 11/29/18 Unknown History Sertraline [Zoloft] 50 mg PO QDAY 11/29/18 11/29/18 Unknown History Sevelamer Carbonate [Renvela] 800 mg PO TIDWM 11/29/18 11/29/18 Unknown History Valsartan [Diovan] 320 mg PO QDAY 11/29/18 11/29/18 Unknown History amLODIPine [Norvasc] 10 mg PO DAILY 11/29/18 11/29/18 Unknown History Active Medications: Generic Name Dose Route Start Last Admin Trade Name Freq PRN Reason Stop Dose Admin Acetaminophen 650 mg 11/29/18 13:40 Tylenol PO Q4H PRN Pain MILD(1-3)/Fever >100.5/POWERS Amlodipine Besylate 10 mg 11/29/18 23:00 11/30/18 11:17 Norvasc PO 10 mg DAILY SALTY Administration Atorvastatin Calcium 10 mg 11/29/18 22:00 12/01/18 00:45 Lipitor PO 10 mg QHS SALTY Administration Clonidine HCl 0.1 mg 11/29/18 22:41 Catapres PO Q4H PRN Increased Blood Pressure Dextrose 50 ml 11/30/18 12:35 D50w (25gm) Syringe IV PRN PRN Hypoglycemia Heparin Sodium (Porcine) 5,000 unit 11/30/18 10:00 12/01/18 00:46 Heparin SUB-Q 5,000 unit Q12HR SALTY Administration Hydralazine HCl 50 mg 11/29/18 23:00 11/30/18 11:27 Apresoline PO 50 mg DAILY SALTY Administration Sodium Chloride 100 mls @ 999 mls/hr 11/29/18 14:50 Nacl 0.9% IV PARMJIT PRN Hypotension Insulin Human Lispro 0 unit 11/30/18 16:30 12/01/18 07:30 Humalog SUB-Q Not Given ACHS SALTY Protocol Metoclopramide HCl 5 mg 11/29/18 22:00 12/01/18 00:45 Reglan PO 5 mg QID SALTY Administration Metoprolol Succinate 200 mg 11/29/18 23:00 11/30/18 11:17 Toprol Xl PO 200 mg QDAY SALTY Administration Minoxidil 2.5 mg 11/29/18 22:00 12/01/18 00:45 Loniten PO 2.5 mg BID SALTY Administration Ondansetron HCl 4 mg 11/29/18 13:40 Zofran IV Q8H PRN Nausea And Vomiting Ondansetron HCl 4 mg 11/29/18 22:00 12/01/18 08:31 Zofran Odt PO Not Given Q8HR SALTY Pantoprazole Sodium 20 mg 11/30/18 10:00 11/30/18 11:16 Protonix PO 20 mg QDAY SALTY Administration Sertraline HCl 50 mg 11/30/18 10:00 11/30/18 11:18 Zoloft PO 50 mg QDAY SALTY Administration Sevelamer Carbonate 800 mg 11/30/18 08:00 11/30/18 20:00 Renvela PO Not Given TIDWM SALTY Sodium Chloride 10 ml 11/29/18 22:00 12/01/18 00:59 Sodium Chloride Flush Syringe 10 Ml IV 10 ml BID SALTY Administration Sodium Chloride 10 ml 11/29/18 13:40 Sodium Chloride Flush Syringe 10 Ml IV PRN PRN LINE FLUSH Valsartan 320 mg 11/29/18 23:00 11/30/18 11:17 Diovan PO 320 mg QDAY SALTY Administration
[2018-12-01] MEDS: TOPROL XL PO SCH (10:21)
[2018-12-01] MEDS: DIOVAN PO SCH (10:21)
[2018-12-01] MEDS: NORVASC PO SCH (10:22)
[2018-12-01] MEDS: APRESOLINE PO SCH (10:23)
[2018-12-01] MEDS: PROTONIX PO SCH (10:23)
[2018-12-01] MEDS: ZOLOFT PO SCH (10:23)
--- NOTE | 2018-12-01 11:17 | XRay Report ---
CHEST 1 VIEW INDICATION: Hemodialysis patient, need for dialysis chair.. COMPARISON: FINDINGS: Support devices: None. Heart: Within normal limits. Lungs/Pleura: No acute air space or interstitial disease. Additional findings: None. IMPRESSION: No acute findings. Signer Name: Bjorn Guerra Jr, MD Signed: 12/01/2018 11:13 AM Workstation Name: [id number]
--- NOTE | 2018-12-01 11:55 | Progress Note ---
Assessment and Plan - Patient Problems (1) Debility Current Visit: Yes Status: Acute Plan to address problem: She has debility multifactorial a lot of it has to do with hemodialysis and underlying renal disease and the fact that she missed dialysis. Patient is better at that hemodialysis however still has debility. Patient's candidate for [facility] facility awaiting placement. . To assist with ADLs. (2) Diabetes mellitus Current Visit: Yes Status: Acute Plan to address problem: Patient did have episode of hypoglycemia but now blood sugars have been relatively well controlled. Will follow with sliding scale insulin with coverage when indicated. (3) ESRD needing dialysis Current Visit: Yes Status: Acute Plan to address problem: Patient tolerated hemodialysis well. (4) GERD (gastroesophageal reflux disease) Current Visit: Yes Status: Resolved Qualifiers: Esophagitis presence: without esophagitis Qualified Code(s): K21.9 - Gastro-esophageal reflux disease without esophagitis Plan to address problem: No nausea vomiting continue proton pump inhibitor. (5) Hypertensive urgency, malignant Current Visit: Yes Status: Acute Plan to address problem: Regimen control with the addition of amlodipine minoxidil and hydralazine. Metoprolol was also added for hypertensive urgency. (6) Nausea & vomiting Current Visit: Yes Status: Resolved (7) Debility Current Visit: Yes Status: Acute Plan to address problem: Patient is a candidate for usp facility. Appears to have good rehabilitation potential. (8) Malnutrition Current Visit: Yes Status: Acute Plan to address problem: Mild malnutrition. History Interval history: She eating well. No pain. No new concerns overnight. Nursing at bedside. Hospitalist Physical - Constitutional Vitals: Temp Pulse Resp BP Pulse Ox 98.7 F 100 H 20 172/77 100 12/01/18 10:31 12/01/18 10:31 12/01/18 10:31 12/01/18 10:31 12/01/18 10:31 General appearance: Present: mild distress, cachectic - EENT Eyes: Present: PERRL, EOM intact ENT: hearing intact, clear oral mucosa, poor dentition, other (right enucleation), no oropharyngeal erythema, no thrush - Neck Neck: Present: normal ROM - Respiratory Respiratory: bilateral: CTA - Cardiovascular Rhythm: regular - Extremities Extremities: no ischemia, pulses intact, pulses symmetrical, No edema, normal temperature, normal color Peripheral Pulses: within normal limits - Abdominal General gastrointestinal: soft, non-tender, non-distended, normal bowel sounds - Integumentary Integumentary: Present: clear, warm, dry. Absent: jaundice, rash, clammy - Psychiatric Psychiatric: appropriate mood/affect, intact judgment & insight - Neurologic Neurologic: CNII-XII intact, moves all extremities Results - Labs CBC & Chem 7: 12/01/18 04:42 12/01/18 04:42 Labs: Laboratory Last Values WBC 4.5 K/mm3 (4.5-11.0) 12/01/18 04:42 RBC 3.84 M/mm3 (3.65-5.03) 12/01/18 04:42 Hgb 11.2 gm/dl (10.1-14.3) 12/01/18 04:42 Hct 33.7 % (30.3-42.9) 12/01/18 04:42 MCV 88 fl (79-97) 12/01/18 04:42 MCH 29 pg (28-32) 12/01/18 04:42 MCHC 33 % (30-34) 12/01/18 04:42 RDW 15.9 % (13.2-15.2) H 12/01/18 04:42 Plt Count 124 K/mm3 (140-440) L 12/01/18 04:42 Lymph % (Auto) 25.0 % (13.4-35.0) 12/01/18 04:42 Luna % (Auto) 7.4 % (0.0-7.3) H 12/01/18 04:42 Eos % (Auto) 2.9 % (0.0-4.3) 12/01/18 04:42 Baso % (Auto) 1.1 % (0.0-1.8) 12/01/18 04:42 Lymph # 1.1 K/mm3 (1.2-5.4) L 12/01/18 04:42 Luna # 0.3 K/mm3 (0.0-0.8) 12/01/18 04:42 Eos # 0.1 K/mm3 (0.0-0.4) 12/01/18 04:42 Baso # 0.0 K/mm3 (0.0-0.1) 12/01/18 04:42 Seg Neutrophils % 63.6 % (40.0-70.0) 12/01/18 04:42 Seg Neutrophils # 2.9 K/mm3 (1.8-7.7) 12/01/18 04:42 Sodium 134 mmol/L (137-145) L 12/01/18 04:42 Potassium 4.4 mmol/L (3.6-5.0) D 12/01/18 04:42 Chloride 98.4 mmol/L (98-107) 12/01/18 04:42 Carbon Dioxide 24 mmol/L (22-30) 12/01/18 04:42 16 mmol/L 12/01/18 04:42 BUN 19 mg/dL (7-17) H 12/01/18 04:42 4.5 mg/dL (0.7-1.2) H 12/01/18 04:42 Estimated GFR 12 ml/min 12/01/18 04:42 4 % 12/01/18 04:42 Glucose 102 mg/dL (65-100) H 12/01/18 04:42 POC Glucose 105 (70-105) 12/01/18 11:27 Calcium 8.1 mg/dL (8.4-10.2) L 12/01/18 04:42 Phosphorus 3.30 mg/dL (2.5-4.5) 12/01/18 04:42 Magnesium 2.10 mg/dL (1.7-2.3) 11/28/18 17:59 0.50 mg/dL (0.1-1.2) 11/28/18 17:59 AST 18 units/L (5-40) 11/28/18 17:59 ALT 7 units/L (7-56) 11/28/18 17:59 72 units/L (35-129) 11/28/18 17:59 0.256 ng/mL (0.00-0.029) H* 11/28/18 22:30 6.4 g/dL (6.3-8.2) 11/28/18 17:59 3.6 g/dL (3.9-5) L 11/28/18 17:59 1.3 % 11/28/18 17:59 Triglycerides 96 mg/dL (2-149) 11/28/18 17:59 Cholesterol 131 mg/dL (50-199) 11/28/18 17:59 64 mg/dL (50-130) 11/28/18 17:59 58 mg/dL (40-59) 11/28/18 17:59 2.25 % 11/28/18 17:59 13 units/L (13-60) 11/28/18 17:59 Hepatitis A IgM Ab Non-reactive (NonReactive) 11/29/18 21:02 Hep Bs Antigen Non-reactive (Negative) 11/29/18 21:02 Hep B Core IgM Ab Non-reactive (NonReactive) 11/29/18 21:02 Non-reactive (NonReactive) 11/29/18 21:02 Active Medications - Current Medications Current Medications: Generic Name Dose Route Start Last Admin Trade Name Freq PRN Reason Stop Dose Admin Acetaminophen 650 mg 11/29/18 13:40 Tylenol PO Q4H PRN Pain MILD(1-3)/Fever >100.5/POWERS Amlodipine Besylate 10 mg 11/29/18 23:00 12/01/18 10:22 Norvasc PO 10 mg DAILY SALTY Administration Atorvastatin Calcium 10 mg 11/29/18 22:00 12/01/18 00:45 Lipitor PO 10 mg QHS SALTY Administration Clonidine HCl 0.1 mg 11/29/18 22:41 Catapres PO Q4H PRN Increased Blood Pressure Dextrose 50 ml 11/30/18 12:35 D50w (25gm) Syringe IV PRN PRN Hypoglycemia Heparin Sodium (Porcine) 5,000 unit 11/30/18 10:00 12/01/18 10:24 Heparin SUB-Q 5,000 unit Q12HR SALTY Administration Hydralazine HCl 50 mg 11/29/18 23:00 12/01/18 10:23 Apresoline PO 50 mg DAILY SALTY Administration Sodium Chloride 100 mls @ 999 mls/hr 11/29/18 14:50 Nacl 0.9% IV PARMJIT PRN Hypotension Insulin Human Lispro 0 unit 11/30/18 16:30 12/01/18 07:30 Humalog SUB-Q Not Given ACHS [facility] Protocol Metoclopramide HCl 5 mg 11/29/18 22:00 12/01/18 10:22 Reglan PO 5 mg QID SALTY Administration Metoprolol Succinate 200 mg 11/29/18 23:00 07/11/19 10:21 Toprol Xl PO 200 mg QDAY SALTY Administration Minoxidil 2.5 mg 11/29/18 22:00 12/01/18 10:22 Loniten PO 2.5 mg BID SALTY Administration Ondansetron HCl 4 mg 11/29/18 13:40 Zofran IV Q8H PRN Nausea And Vomiting Ondansetron HCl 4 mg 11/29/18 22:00 12/01/18 08:31 Zofran Odt PO Not Given Q8HR SALTY Pantoprazole Sodium 20 mg 11/30/18 10:00 12/01/18 10:23 Protonix PO 20 mg QDAY SALTY Administration Sertraline HCl 50 mg 11/30/18 10:00 12/01/18 10:23 Zoloft PO 50 mg QDAY SALTY Administration Sevelamer Carbonate 800 mg 11/30/18 08:00 12/01/18 08:00 Renvela PO 800 mg TIDWM SALTY Administration Sodium Chloride 10 ml 11/29/18 22:00 12/01/18 10:24 Sodium Chloride Flush Syringe 10 Ml IV 10 ml BID SALTY Administration Sodium Chloride 10 ml 11/29/18 13:40 Sodium Chloride Flush Syringe 10 Ml IV PRN PRN LINE FLUSH Valsartan 320 mg 11/29/18 23:00 12/01/18 10:21 Diovan PO 320 mg QDAY SALTY Administration
[2018-12-01] MEDS ORDERED: NACL 0.9% 100 ML IV PRN (18:20)
[2018-12-02] MEDS: ZOFRAN ODT PO SCH ×3 (05:29→22:26)
[2018-12-02] MEDS: HumaLOG SUB-Q SCH ×4 (07:30→22:23)
--- NOTE | 2018-12-02 07:56 | Progress Note ---
Assessment and Plan Assessment and plan: Debility She has debility multifactorial secondary to hemodialysis and underlying renal disease. Patient is a candidate for [facility] facility and awaiting placement. Diabetes mellitus Patient did have episode of hypoglycemia but now blood sugars have been relatively well controlled. Will follow with sliding scale insulin with coverage when indicated. ESRD needing dialysis Cont. hemodialysis per nephrology GERD (gastroesophageal reflux disease) Continue proton pump inhibitor. Hypertensive urgency, malignant Regimen control with the addition of amlodipine minoxidil and hydralazine. Metoprolol was also added for hypertensive urgency. Nausea & vomiting Resolved Malnutrition Mild malnutrition. History Interval history: No new issues overnight. Hospitalist Physical - Constitutional Vitals: Temp Pulse Resp BP Pulse Ox 98.0 F 59 L 20 135/66 99 12/02/18 04:40 12/02/18 04:40 12/02/18 04:40 12/02/18 04:40 12/02/18 04:40 General appearance: Present: mild distress, cachectic - EENT Eyes: Present: PERRL, EOM intact ENT: hearing intact, clear oral mucosa, dentition normal - Neck Neck: Present: supple, normal ROM - Respiratory Respiratory effort: normal Respiratory: bilateral: CTA - Cardiovascular Rhythm: regular Heart Sounds: Present: S1 & S2. Absent: gallop, rub - Extremities Extremities: no ischemia, No edema, Full ROM - Abdominal General gastrointestinal: soft, non-tender, non-distended, normal bowel sounds - Integumentary Integumentary: Present: clear, warm, dry - Neurologic Neurologic: CNII-XII intact, moves all extremities Results - Labs CBC & Chem 7: 12/01/18 04:42 12/01/18 04:42 Labs: Laboratory Last Values WBC 4.5 K/mm3 (4.5-11.0) 12/01/18 04:42 RBC 3.84 M/mm3 (3.65-5.03) 12/01/18 04:42 Hgb 11.2 gm/dl (10.1-14.3) 12/01/18 04:42 Hct 33.7 % (30.3-42.9) 12/01/18 04:42 MCV 88 fl (79-97) 12/01/18 04:42 MCH 29 pg (28-32) 12/01/18 04:42 MCHC 33 % (30-34) 12/01/18 04:42 RDW 15.9 % (13.2-15.2) H 12/01/18 04:42 Plt Count 124 K/mm3 (140-440) L 12/01/18 04:42 Lymph % (Auto) 25.0 % (13.4-35.0) 12/01/18 04:42 [place] % (Auto) 7.4 % (0.0-7.3) H 12/01/18 04:42 Eos % (Auto) 2.9 % (0.0-4.3) 12/01/18 04:42 Baso % (Auto) 1.1 % (0.0-1.8) 12/01/18 04:42 Lymph # 1.1 K/mm3 (1.2-5.4) L 12/01/18 04:42 [place] # 0.3 K/mm3 (0.0-0.8) 12/01/18 04:42 Eos # 0.1 K/mm3 (0.0-0.4) 12/01/18 04:42 Baso # 0.0 K/mm3 (0.0-0.1) 12/01/18 04:42 Seg Neutrophils % 63.6 % (40.0-70.0) 12/01/18 04:42 Seg Neutrophils # 2.9 K/mm3 (1.8-7.7) 12/01/18 04:42 Sodium 134 mmol/L (137-145) L 12/01/18 04:42 Potassium 4.4 mmol/L (3.6-5.0) D 12/01/18 04:42 Chloride 98.4 mmol/L (98-107) 12/01/18 04:42 Carbon Dioxide 24 mmol/L (22-30) 12/01/18 04:42 16 mmol/L 12/01/18 04:42 BUN 19 mg/dL (7-17) H 12/01/18 04:42 4.5 mg/dL (0.7-1.2) H 12/01/18 04:42 Estimated GFR 12 ml/min 12/01/18 04:42 4 % 12/01/18 04:42 Glucose 102 mg/dL (65-100) H 12/01/18 04:42 POC Glucose 124 (70-105) H 12/01/18 22:39 Calcium 8.1 mg/dL (8.4-10.2) L 12/01/18 04:42 Phosphorus 3.30 mg/dL (2.5-4.5) 12/01/18 04:42 Magnesium 2.10 mg/dL (1.7-2.3) 11/28/18 17:59 0.50 mg/dL (0.1-1.2) 11/28/18 17:59 AST 18 units/L (5-40) 11/28/18 17:59 ALT 7 units/L (7-56) 11/28/18 17:59 72 units/L (35-129) 11/28/18 17:59 0.256 ng/mL (0.00-0.029) H* 11/28/18 22:30 6.4 g/dL (6.3-8.2) 11/28/18 17:59 3.6 g/dL (3.9-5) L 11/28/18 17:59 1.3 % 11/28/18 17:59 Triglycerides 96 mg/dL (2-149) 11/28/18 17:59 Cholesterol 131 mg/dL (50-199) 11/28/18 17:59 64 mg/dL (50-130) 11/28/18 17:59 58 mg/dL (40-59) 11/28/18 17:59 2.25 % 11/28/18 17:59 13 units/L (13-60) 11/28/18 17:59 Hepatitis A IgM Ab Non-reactive (NonReactive) 11/29/18 21:02 Hep Bs Antigen Non-reactive (Negative) 11/29/18 21:02 Hep B Core IgM Ab Non-reactive (NonReactive) 11/29/18 21:02 Non-reactive (NonReactive) 11/29/18 21:02 Active Medications - Current Medications Current Medications: Generic Name Dose Route Start Last Admin Trade Name Freq PRN Reason Stop Dose Admin Acetaminophen 650 mg 11/29/18 13:40 Tylenol PO Q4H PRN Pain MILD(1-3)/Fever >100.5/POWERS Amlodipine Besylate 10 mg 11/29/18 23:00 12/01/18 10:22 Norvasc PO 10 mg DAILY SALTY Administration Atorvastatin Calcium 10 mg 11/29/18 22:00 12/01/18 22:37 Lipitor PO 10 mg QHS SALTY Administration Clonidine HCl 0.1 mg 11/29/18 22:41 Catapres PO Q4H PRN Increased Blood Pressure Dextrose 50 ml 11/30/18 12:35 D50w (25gm) Syringe IV PRN PRN Hypoglycemia Heparin Sodium (Porcine) 5,000 unit 11/30/18 10:00 12/01/18 22:38 Heparin SUB-Q 5,000 unit Q12HR SALTY Administration Hydralazine HCl 50 mg 11/29/18 23:00 12/01/18 10:23 Apresoline PO 50 mg DAILY SALTY Administration Sodium Chloride 100 mls @ 999 mls/hr 11/29/18 14:50 Nacl 0.9% IV PARMJIT PRN Hypotension Insulin Human Lispro 0 unit 11/30/18 16:30 12/01/18 22:30 Humalog SUB-Q Not Given ACHS SALTY Protocol Metoclopramide HCl 5 mg 11/29/18 22:00 12/01/18 22:37 Reglan PO 5 mg QID SALTY Administration Metoprolol Succinate 200 mg 11/29/18 23:00 12/01/18 10:21 Toprol Xl PO 200 mg QDAY SALTY Administration Minoxidil 2.5 mg 11/29/18 22:00 12/01/18 22:37 Loniten PO 2.5 mg BID SALTY Administration Ondansetron HCl 4 mg 11/29/18 13:40 Zofran IV Q8H PRN Nausea And Vomiting Ondansetron HCl 4 mg 11/29/18 22:00 12/02/18 05:29 Zofran Odt PO Not Given Q8HR SALTY Pantoprazole Sodium 20 mg 11/30/18 10:00 12/01/18 10:23 Protonix PO 20 mg QDAY SALTY Administration Sertraline HCl 50 mg 11/30/18 10:00 12/01/18 10:23 Zoloft PO 50 mg QDAY SALTY Administration Sevelamer Carbonate 800 mg 11/30/18 08:00 12/01/18 17:00 Renvela PO 800 mg TIDWM SALTY Administration Sodium Chloride 10 ml 11/29/18 22:00 12/01/18 22:38 Sodium Chloride Flush Syringe 10 Ml IV 10 ml BID SALTY Administration Sodium Chloride 10 ml 11/29/18 13:40 Sodium Chloride Flush Syringe 10 Ml IV PRN PRN LINE FLUSH Valsartan 320 mg 11/29/18 23:00 12/01/18 10:21 Diovan PO 320 mg QDAY SALTY Administration
[2018-12-02] MEDS: RENVELA PO SCH ×3 (08:00→16:53)
--- NOTE | 2018-12-02 08:25 | Progress Note ---
Assessment and Plan 1. ESRD: Patient is on maintenance hemodialysis three times a week, MWF schedule. She was last dialyzed 3 days ago. Hemodialysis today. 2. FEN: Monitor. 3. Nausea & vomiting: Improved. 4. Involuntary movements. 5. Diabetes mellitus. 6. Hypertension. 7. Physical deconditioning. D/w her son over the phone yesterday. Await placement. Subjective Date of service: 12/02/18 Interval history: Patient was seen and examined at the bedside. Objective - Vital Signs Vital signs: Vital Signs - 12hr 12/01/18 12/01/18 12/01/18 22:00 22:30 22:35 Temperature 98.1 F 98.1 F Pulse Rate 59 L Respiratory 18 24 Rate Respiratory 17 Rate [Head] Blood Pressure 123/60 O2 Sat by Pulse 100 Oximetry 12/02/18 04:40 Temperature 98.0 F Pulse Rate 59 L Respiratory 20 Rate Respiratory Rate [Head] Blood Pressure 135/66 O2 Sat by Pulse 99 Oximetry - General Appearance General appearance: well-developed, appears stated age, other (no distress, appears emaciated) EENT: ATNC, other (R eye sclerotic) Neck: supple Respiratory: Present: Clear to Ascultation Cardiology: regular, S1S2, no murmurs Gastrointestinal: normoactive bowel sounds, no tenderness, no distended Integumentary: no rash, warm and dry Neurologic: no asterixis, confused, disoriented, other (L hand weakness) Musculoskeletal: other (L arm AVF, L hand deformity) Psychiatric: cooperative - Lab 12/01/18 04:42 12/01/18 04:42 Most recent lab results Calcium 8.1 mg/dL (8.4-10.2) L 12/01/18 04:42 Phosphorus 3.30 mg/dL (2.5-4.5) 12/01/18 04:42 Magnesium 2.10 mg/dL (1.7-2.3) 11/28/18 17:59 Medications & Allergies - Medications Allergies/Adverse Reactions: Allergies No Known Allergies Allergy (Unverified 06/22/16 20:11) Home Medications: Home Medications Medication Instructions Recorded Confirmed Last Taken Type AtorvaSTATin [Lipitor] 10 mg PO QHS 11/29/18 11/29/18 Unknown History Hydralazine HCl 50 mg PO DAILY 11/29/18 11/29/18 Unknown History Losartan [Cozaar] 25 mg PO QDAY 11/29/18 11/29/18 Unknown History Metoclopramide HCl [Reglan TAB] 5 mg PO QID 11/29/18 11/29/18 Unknown History Metoprolol Succinate 200 mg PO DAILY 11/29/18 11/29/18 Unknown History Minoxidil [Loniten] 2.5 mg PO BID 11/29/18 11/29/18 Unknown History Ondansetron [Zofran Odt] 4 mg PO Q8HR 11/29/18 11/29/18 Unknown History Pantoprazole [Protonix TAB] 20 mg QDAY 11/29/18 11/29/18 Unknown History Sertraline [Zoloft] 50 mg PO QDAY 11/29/18 11/29/18 Unknown History Sevelamer Carbonate [Renvela] 800 mg PO TIDWM 11/29/18 11/29/18 Unknown History Valsartan [Diovan] 320 mg PO QDAY 11/29/18 11/29/18 Unknown History amLODIPine [Norvasc] 10 mg PO DAILY 11/29/18 11/29/18 Unknown History Active Medications: Generic Name Dose Route Start Last Admin Trade Name Freq PRN Reason Stop Dose Admin Acetaminophen 650 mg 11/29/18 13:40 Tylenol PO Q4H PRN Pain MILD(1-3)/Fever >100.5/POWERS Amlodipine Besylate 10 mg 11/29/18 23:00 12/01/18 10:22 Norvasc PO 10 mg DAILY SALTY Administration Atorvastatin Calcium 10 mg 11/29/18 22:00 12/01/18 22:37 Lipitor PO 10 mg QHS SALTY Administration Clonidine HCl 0.1 mg 11/29/18 22:41 Catapres PO Q4H PRN Increased Blood Pressure Dextrose 50 ml 11/30/18 12:35 D50w (25gm) Syringe IV PRN PRN Hypoglycemia Heparin Sodium (Porcine) 5,000 unit 11/30/18 10:00 12/01/18 22:38 Heparin SUB-Q 5,000 unit Q12HR SALTY Administration Hydralazine HCl 50 mg 11/29/18 23:00 12/01/18 10:23 Apresoline PO 50 mg DAILY SALTY Administration Sodium Chloride 100 mls @ 999 mls/hr 11/29/18 14:50 Nacl 0.9% IV PARMJIT PRN Hypotension Insulin Human Lispro 0 unit 11/30/18 16:30 12/01/18 22:30 Humalog SUB-Q Not Given ACHS [facility] Protocol Metoclopramide HCl 5 mg 11/29/18 22:00 12/01/18 22:37 Reglan PO 5 mg QID SALTY Administration Metoprolol Succinate 200 mg 11/29/18 23:00 12/01/18 10:21 Toprol Xl PO 200 mg QDAY SALTY Administration Minoxidil 2.5 mg 11/29/18 22:00 12/01/18 22:37 Loniten PO 2.5 mg BID SALTY Administration Ondansetron HCl 4 mg 11/29/18 13:40 Zofran IV Q8H PRN Nausea And Vomiting Ondansetron HCl 4 mg 11/29/18 22:00 12/02/18 05:29 Zofran Odt PO Not Given Q8HR SALTY Pantoprazole Sodium 20 mg 11/30/18 10:00 12/01/18 10:23 Protonix PO 20 mg QDAY SALTY Administration Sertraline HCl 50 mg 11/30/18 10:00 12/01/18 10:23 Zoloft PO 50 mg QDAY SALTY Administration Sevelamer Carbonate 800 mg 11/30/18 08:00 12/01/18 17:00 Renvela PO 800 mg TIDWM SALTY Administration Sodium Chloride 10 ml 11/29/18 22:00 12/01/18 22:38 Sodium Chloride Flush Syringe 10 Ml IV 10 ml BID SALTY Administration Sodium Chloride 10 ml 11/29/18 13:40 Sodium Chloride Flush Syringe 10 Ml IV PRN PRN LINE FLUSH Valsartan 320 mg 11/29/18 23:00 12/01/18 10:21 Diovan PO 320 mg QDAY SALTY Administration
[2018-12-02] MEDS: TOPROL XL PO SCH ×2 (09:17→10:00)
[2018-12-02] MEDS: REGLAN PO SCH ×4 (09:18→22:25)
[2018-12-02] MEDS: APRESOLINE PO SCH ×2 (09:18→10:00)
[2018-12-02] MEDS: DIOVAN PO SCH ×2 (09:19→10:00)
[2018-12-02] MEDS: ZOLOFT PO SCH (09:19)
[2018-12-02] MEDS: LONITEN PO SCH ×3 (09:19→22:26)
[2018-12-02] MEDS: NORVASC PO SCH ×2 (09:19→10:00)
[2018-12-02] MEDS: SODIUM CHLORIDE FLUSH SYRINGE 10 ML IV SCH ×2 (09:21→22:26)
[2018-12-02] MEDS: HEPARIN SUB-Q SCH ×2 (09:22→22:24)
[2018-12-02] MEDS: PROTONIX PO SCH (09:25)
[2018-12-03] MEDS: ZOFRAN ODT PO SCH ×3 (06:40→22:17)
--- NOTE | 2018-12-03 08:43 | Progress Note ---
Assessment and Plan Assessment and plan: Debility She has debility multifactorial secondary to hemodialysis and underlying renal disease. Patient is a candidate for custodial facility and awaiting placement. Diabetes mellitus Patient did have episode of hypoglycemia but now blood sugars have been relatively well controlled. Will follow with sliding scale insulin with coverage when indicated. ESRD needing dialysis Cont. hemodialysis per nephrology GERD (gastroesophageal reflux disease) Continue proton pump inhibitor. Hypertensive urgency, malignant Regimen control with the addition of amlodipine minoxidil and hydralazine. Metoprolol was also added for hypertensive urgency. Nausea & vomiting Resolved Malnutrition Mild malnutrition. History Interval history: No new issues overnight. Hospitalist Physical - Constitutional Vitals: Temp Pulse Resp BP Pulse Ox 98.5 F 69 20 145/67 100 12/03/18 05:36 12/03/18 05:36 12/03/18 05:36 12/03/18 05:36 12/03/18 05:36 General appearance: Present: mild distress, cachectic - EENT Eyes: Present: PERRL, EOM intact ENT: hearing intact, clear oral mucosa, dentition normal - Neck Neck: Present: supple, normal ROM - Respiratory Respiratory effort: normal Respiratory: bilateral: CTA - Cardiovascular Rhythm: regular Heart Sounds: Present: S1 & S2. Absent: gallop, rub - Extremities Extremities: no ischemia, No edema, Full ROM - Abdominal General gastrointestinal: soft, non-tender, non-distended, normal bowel sounds - Integumentary Integumentary: Present: clear, warm, dry - Neurologic Neurologic: CNII-XII intact, moves all extremities Results - Labs CBC & Chem 7: 12/01/18 04:42 12/01/18 04:42 Labs: Laboratory Last Values WBC 4.5 K/mm3 (4.5-11.0) 12/01/18 04:42 RBC 3.84 M/mm3 (3.65-5.03) 12/01/18 04:42 Hgb 11.2 gm/dl (10.1-14.3) 12/01/18 04:42 Hct 33.7 % (30.3-42.9) 12/01/18 04:42 MCV 88 fl (79-97) 12/01/18 04:42 MCH 29 pg (28-32) 12/01/18 04:42 MCHC 33 % (30-34) 12/01/18 04:42 RDW 15.9 % (13.2-15.2) H 12/01/18 04:42 Plt Count 124 K/mm3 (140-440) L 12/01/18 04:42 Lymph % (Auto) 25.0 % (13.4-35.0) 12/01/18 04:42 [place] % (Auto) 7.4 % (0.0-7.3) H 12/01/18 04:42 Eos % (Auto) 2.9 % (0.0-4.3) 12/01/18 04:42 Baso % (Auto) 1.1 % (0.0-1.8) 12/01/18 04:42 Lymph # 1.1 K/mm3 (1.2-5.4) L 12/01/18 04:42 [place] # 0.3 K/mm3 (0.0-0.8) 12/01/18 04:42 Eos # 0.1 K/mm3 (0.0-0.4) 12/01/18 04:42 Baso # 0.0 K/mm3 (0.0-0.1) 12/01/18 04:42 Seg Neutrophils % 63.6 % (40.0-70.0) 12/01/18 04:42 Seg Neutrophils # 2.9 K/mm3 (1.8-7.7) 12/01/18 04:42 Sodium 134 mmol/L (137-145) L 12/01/18 04:42 Potassium 4.4 mmol/L (3.6-5.0) D 12/01/18 04:42 Chloride 98.4 mmol/L (98-107) 12/01/18 04:42 Carbon Dioxide 24 mmol/L (22-30) 12/01/18 04:42 16 mmol/L 12/01/18 04:42 BUN 19 mg/dL (7-17) H 12/01/18 04:42 4.5 mg/dL (0.7-1.2) H 12/01/18 04:42 Estimated GFR 12 ml/min 12/01/18 04:42 4 % 12/01/18 04:42 Glucose 102 mg/dL (65-100) H 12/01/18 04:42 POC Glucose 159 (70-105) H 12/02/18 22:22 Calcium 8.1 mg/dL (8.4-10.2) L 12/01/18 04:42 Phosphorus 3.30 mg/dL (2.5-4.5) 12/01/18 04:42 Magnesium 2.10 mg/dL (1.7-2.3) 11/28/18 17:59 0.50 mg/dL (0.1-1.2) 11/28/18 17:59 AST 18 units/L (5-40) 11/28/18 17:59 ALT 7 units/L (7-56) 11/28/18 17:59 72 units/L (35-129) 11/28/18 17:59 0.256 ng/mL (0.00-0.029) H* 11/28/18 22:30 6.4 g/dL (6.3-8.2) 11/28/18 17:59 3.6 g/dL (3.9-5) L 11/28/18 17:59 1.3 % 11/28/18 17:59 Triglycerides 96 mg/dL (2-149) 11/28/18 17:59 Cholesterol 131 mg/dL (50-199) 11/28/18 17:59 64 mg/dL (50-130) 11/28/18 17:59 58 mg/dL (40-59) 11/28/18 17:59 2.25 % 11/28/18 17:59 13 units/L (13-60) 11/28/18 17:59 Hepatitis A IgM Ab Non-reactive (NonReactive) 11/29/18 21:02 Hep Bs Antigen Non-reactive (Negative) 11/29/18 21:02 Hep B Core IgM Ab Non-reactive (NonReactive) 11/29/18 21:02 Non-reactive (NonReactive) 11/29/18 21:02 Active Medications - Current Medications Current Medications: Generic Name Dose Route Start Last Admin Trade Name Freq PRN Reason Stop Dose Admin Acetaminophen 650 mg 11/29/18 13:40 Tylenol PO Q4H PRN Pain MILD(1-3)/Fever >100.5/POWERS Amlodipine Besylate 10 mg 11/29/18 23:00 12/02/18 10:00 Norvasc PO 10 mg DAILY SALTY Administration Atorvastatin Calcium 10 mg 11/29/18 22:00 12/02/18 22:26 Lipitor PO 10 mg QHS SALTY Administration Clonidine HCl 0.1 mg 11/29/18 22:41 Catapres PO Q4H PRN Increased Blood Pressure Dextrose 50 ml 11/30/18 12:35 D50w (25gm) Syringe IV PRN PRN Hypoglycemia Heparin Sodium (Porcine) 5,000 unit 11/30/18 10:00 12/02/18 22:24 Heparin SUB-Q 5,000 unit Q12HR SALTY Administration Hydralazine HCl 50 mg 11/29/18 23:00 12/02/18 10:00 Apresoline PO 50 mg DAILY SALTY Administration Sodium Chloride 100 mls @ 999 mls/hr 11/29/18 14:50 Nacl 0.9% IV PARMJIT PRN Hypotension Insulin Human Lispro 0 unit 11/30/18 16:30 12/02/18 22:23 Humalog SUB-Q 2 unit ACHS SALTY Administration Protocol Metoclopramide HCl 5 mg 11/29/18 22:00 12/02/18 22:25 Reglan PO 5 mg QID SALTY Administration Metoprolol Succinate 200 mg 11/29/18 23:00 12/02/18 10:00 Toprol Xl PO 200 mg QDAY SALTY Administration Minoxidil 2.5 mg 11/29/18 22:00 12/02/18 22:26 Loniten PO 2.5 mg BID SALTY Administration Ondansetron HCl 4 mg 11/29/18 13:40 Zofran IV Q8H PRN Nausea And Vomiting Ondansetron HCl 4 mg 11/29/18 22:00 12/03/18 06:40 Zofran Odt PO 4 mg Q8HR SALTY Administration Pantoprazole Sodium 20 mg 11/30/18 10:00 12/02/18 09:25 Protonix PO 20 mg QDAY SALTY Administration Sertraline HCl 50 mg 11/30/18 10:00 12/02/18 09:19 Zoloft PO 50 mg QDAY SALTY Administration Sevelamer Carbonate 800 mg 11/30/18 08:00 12/02/18 16:53 Renvela PO 800 mg TIDWM SALTY Administration Sodium Chloride 10 ml 11/29/18 22:00 12/02/18 22:26 Sodium Chloride Flush Syringe 10 Ml IV 10 ml BID SALTY Administration Sodium Chloride 10 ml 11/29/18 13:40 Sodium Chloride Flush Syringe 10 Ml IV PRN PRN LINE FLUSH Valsartan 320 mg 11/29/18 23:00 12/02/18 10:00 Diovan PO 320 mg QDAY SALTY Administration
[2018-12-03] MEDS: HumaLOG SUB-Q SCH ×4 (09:07→22:27)
--- NOTE | 2018-12-03 11:46 | Progress Note ---
Assessment and Plan 1. ESRD: Patient is on maintenance hemodialysis three times a week, MWF schedule. She was last dialyzed yesterday. Hemodialysis 11/29, 12/02. 2. FEN: Monitor. 3. Nausea & vomiting: Improved. 4. Involuntary movements. 5. Diabetes mellitus. 6. Hypertension. 7. Physical deconditioning. Await placement. Subjective Date of service: 12/03/18 Interval history: Patient was seen and examined at the bedside. Objective - Vital Signs Vital signs: Vital Signs - 12hr 12/03/18 05:36 Temperature 98.5 F Pulse Rate 69 Respiratory 20 Rate Blood Pressure 145/67 O2 Sat by Pulse 100 Oximetry - General Appearance General appearance: well-developed, appears stated age, other (no distress) EENT: ATNC, other (R eye sclerotic) Neck: supple Respiratory: Present: Clear to Ascultation Cardiology: regular, S1S2, no murmurs Gastrointestinal: normoactive bowel sounds, no tenderness, no distended Integumentary: no rash, warm and dry Neurologic: confused, disoriented, other (R eye blind) Musculoskeletal: other (L hand deformed, L arm AVF, no edema) - Lab 12/01/18 04:42 12/01/18 04:42 Most recent lab results Calcium 8.1 mg/dL (8.4-10.2) L 12/01/18 04:42 Phosphorus 3.30 mg/dL (2.5-4.5) 12/01/18 04:42 Magnesium 2.10 mg/dL (1.7-2.3) 11/28/18 17:59 Medications & Allergies - Medications Allergies/Adverse Reactions: Allergies No Known Allergies Allergy (Unverified 06/22/16 20:11) Home Medications: Home Medications Medication Instructions Recorded Confirmed Last Taken Type AtorvaSTATin [Lipitor] 10 mg PO QHS 11/29/18 11/29/18 Unknown History Hydralazine HCl 50 mg PO DAILY 11/29/18 11/29/18 Unknown History Losartan [Cozaar] 25 mg PO QDAY 11/29/18 11/29/18 Unknown History Metoclopramide HCl [Reglan TAB] 5 mg PO QID 11/29/18 11/29/18 Unknown History Metoprolol Succinate 200 mg PO DAILY 11/29/18 11/29/18 Unknown History Minoxidil [Loniten] 2.5 mg PO BID 11/29/18 11/29/18 Unknown History Ondansetron [Zofran Odt] 4 mg PO Q8HR 11/29/18 11/29/18 Unknown History Pantoprazole [Protonix TAB] 20 mg QDAY 11/29/18 11/29/18 Unknown History Sertraline [Zoloft] 50 mg PO QDAY 11/29/18 11/29/18 Unknown History Sevelamer Carbonate [Renvela] 800 mg PO TIDWM 11/29/18 11/29/18 Unknown History Valsartan [Diovan] 320 mg PO QDAY 11/29/18 11/29/18 Unknown History amLODIPine [Norvasc] 10 mg PO DAILY 11/29/18 11/29/18 Unknown History Active Medications: Generic Name Dose Route Start Last Admin Trade Name Freq PRN Reason Stop Dose Admin Acetaminophen 650 mg 11/29/18 13:40 Tylenol PO Q4H PRN Pain MILD(1-3)/Fever >100.5/POWERS Amlodipine Besylate 10 mg 11/29/18 23:00 12/02/18 10:00 Norvasc PO 10 mg DAILY SALTY Administration Atorvastatin Calcium 10 mg 11/29/18 22:00 12/02/18 22:26 Lipitor PO 10 mg QHS SALTY Administration Clonidine HCl 0.1 mg 11/29/18 22:41 Catapres PO Q4H PRN Increased Blood Pressure Dextrose 50 ml 11/30/18 12:35 D50w (25gm) Syringe IV PRN PRN Hypoglycemia Heparin Sodium (Porcine) 5,000 unit 11/30/18 10:00 12/02/18 22:24 Heparin SUB-Q 5,000 unit Q12HR SALYT Administration Hydralazine HCl 50 mg 11/29/18 23:00 12/02/18 10:00 Apresoline PO 50 mg DAILY SALTY Administration Sodium Chloride 100 mls @ 999 mls/hr 11/29/18 14:50 Nacl 0.9% IV PARMJIT PRN Hypotension Insulin Human Lispro 0 unit 11/30/18 16:30 12/03/18 09:07 Humalog SUB-Q Not Given ACHS SALTY Protocol Metoclopramide HCl 5 mg 11/29/18 22:00 12/02/18 22:25 Reglan PO 5 mg QID SALTY Administration Metoprolol Succinate 200 mg 11/29/18 23:00 12/02/18 10:00 Toprol Xl PO 200 mg QDAY SALTY Administration Minoxidil 2.5 mg 11/29/18 22:00 12/02/18 22:26 Loniten PO 2.5 mg BID SALTY Administration Ondansetron HCl 4 mg 11/29/18 13:40 Zofran IV Q8H PRN Nausea And Vomiting Ondansetron HCl 4 mg 11/29/18 22:00 12/03/18 06:40 Zofran Odt PO 4 mg Q8HR SALTY Administration Pantoprazole Sodium 20 mg 11/30/18 10:00 12/02/18 09:25 Protonix PO 20 mg QDAY SALTY Administration Sertraline HCl 50 mg 11/30/18 10:00 12/02/18 09:19 Zoloft PO 50 mg QDAY SALTY Administration Sevelamer Carbonate 800 mg 11/30/18 08:00 12/02/18 16:53 Renvela PO 800 mg TIDWM SALTY Administration Sodium Chloride 10 ml 11/29/18 22:00 12/02/18 22:26 Sodium Chloride Flush Syringe 10 Ml IV 10 ml BID SALTY Administration Sodium Chloride 10 ml 11/29/18 13:40 Sodium Chloride Flush Syringe 10 Ml IV PRN PRN LINE FLUSH Valsartan 320 mg 11/29/18 23:00 12/02/18 10:00 Diovan PO 320 mg QDAY SALTY Administration
[2018-12-03] MEDS: HEPARIN SUB-Q SCH ×2 (12:41→22:18)
[2018-12-03] MEDS: LONITEN PO SCH ×2 (12:42→22:17)
[2018-12-03] MEDS: REGLAN PO SCH ×4 (12:42→22:17)
[2018-12-03] MEDS: ZOLOFT PO SCH (12:42)
[2018-12-03] MEDS: PROTONIX PO SCH (12:43)
[2018-12-03] MEDS: RENVELA PO SCH ×3 (12:43→18:11)
[2018-12-03] MEDS: SODIUM CHLORIDE FLUSH SYRINGE 10 ML IV SCH ×2 (12:44→22:18)
[2018-12-03] MEDS: TOPROL XL PO SCH (12:51)
[2018-12-03] MEDS: DIOVAN PO SCH (12:52)
[2018-12-03] MEDS: NORVASC PO SCH (12:53)
[2018-12-03] MEDS: APRESOLINE PO SCH (12:53)
[2018-12-04] MEDS: ZOFRAN ODT PO SCH ×3 (06:24→22:49)
[2018-12-04 07:16] LABS: Basophils % (Auto) 0.9 % (0.0-1.8); Eosinophils # (Auto) 0.1 K/mm3 (0.0-0.4); Eosinophils % (Auto) 2.6 % (0.0-4.3); Hematocrit 37.5 % (30.3-42.9); Hemoglobin 12.2 gm/dl (10.1-14.3); Lymphocytes # (Auto) 1.5 K/mm3 (1.2-5.4); Lymphocytes % (Auto) 29.8 % (13.4-35.0); Mean Corpuscular HGB Conc 33 % (30-34); Mean Corpuscular Volume 88 fl (79-97); Monocytes # (Auto) 0.4 K/mm3 (0.0-0.8); Monocytes % (Auto) 8.9 % (0.0-7.3); Platelet Count 147 K/mm3 (140-440); Red Blood Count 4.25 M/mm3 (3.65-5.03); Red Cell Distribution Width 15.1 % (13.2-15.2)
[2018-12-04 07:29] LABS: Calcium 8.9 mg/dL (8.4-10.2)
[2018-12-04] MEDS: HumaLOG SUB-Q SCH ×4 (08:31→22:52)
[2018-12-04] MEDS: HEPARIN SUB-Q SCH ×2 (09:51→22:50)
--- NOTE | 2018-12-04 09:53 | Discharge Summary ---
Providers - Providers Date of Admission: 11/29/18 13:40 Date of discharge: 12/04/18 Attending physician: ITZ ALANIZ 11/28/18 23:46 Consult to Case Management [CONS] Stat Services Needed at Discharge: Mass Communications Instructor Notified:: n Additional Physician Instructions: patient requires [facility], son has been in consultation front desk representative at [facility] 11/29/18 13:41 Consult to Physician [CONS] Routine Comment: Consulting Provider: RICARDO CRUZ Physician Instructions: Reason For Exam: esrd 11/30/18 06:32 Physical Therapy Evaluation and Treat [CONS] Routine Comment: Reason For Exam: weakness Primary care physician: DORIS ARDON Hospitalization Reason for admission: N/V Condition: Stable Hospital course: The patient is a 56 year old AAF with history significant for DM type 2, HTN, Di abetic Retinopathy, CVA and ESRD on hemodialysis (MWF) who presented to the emergency department by EMS from home with complaint of nausea, vomiting and involuntary movements. She moved to [place] with her son about 10 days ago. Patient is a very poor historian. For the past 4-5 months she has declined. She has involuntary movements of her head and has generalized pain. The patient was seen by nephrology in consultation and maintained on maintenance hemodialysis three times a week, MWF schedule. The patient's nausea and vomiting was treated with supportive care and resolved. The involuntary movements resolved spontaneously. Case management was consulted for long-term placement. [place] has excepted and patient will be transferred. The discharge time 32 minutes. Disposition: [id number] SN[facility] Time spent for discharge: 32 Core Measure Documentation - Palliative Care Palliative Care/ Comfort Measures: Not Applicable - Core Measures Any of the following diagnoses?: none Exam - Constitutional Vitals: Temp Pulse Resp BP Pulse Ox 97.5 F L 58 L 18 134/51 100 12/04/18 05:33 12/04/18 05:33 12/04/18 05:33 12/04/18 05:33 12/04/18 05:33 General appearance: Present: no acute distress, well-nourished - EENT Eyes: Present: PERRL ENT: hearing intact, clear oral mucosa - Neck Neck: Present: supple, normal ROM - Respiratory Respiratory effort: normal Respiratory: bilateral: CTA - Cardiovascular Heart Sounds: Present: S1 & S2. Absent: rub, click - Extremities Extremities: pulses symmetrical, No edema Peripheral Pulses: within normal limits - Abdominal General gastrointestinal: Present: soft, non-tender, non-distended, normal bowel sounds Female genitourinary: Present: normal - Integumentary Integumentary: Present: clear, warm, dry - Musculoskeletal Musculoskeletal: gait normal, strength equal bilaterally - Psychiatric Psychiatric: appropriate mood/affect, intact judgment & insight - Neurologic Neurologic: CNII-XII intact, moves all extremities Plan Activity: advance as tolerated Weight Bearing Status: Weight Bear as Tolerated Diet: diabetic Follow up with: DORIS ARDON MD [Primary Care Provider] - 3-5 Days
[2018-12-04] MEDS: RENVELA PO SCH ×3 (09:55→19:25)
[2018-12-04] MEDS: ZOLOFT PO SCH (09:56)
[2018-12-04] MEDS: PROTONIX PO SCH (09:56)
[2018-12-04] MEDS: LONITEN PO SCH ×2 (09:56→22:50)
[2018-12-04] MEDS: REGLAN PO SCH ×4 (09:56→22:50)
[2018-12-04] MEDS: APRESOLINE PO SCH (10:00)
[2018-12-04] MEDS: TOPROL XL PO SCH (10:01)
[2018-12-04] MEDS: DIOVAN PO SCH (10:01)
[2018-12-04] MEDS: NORVASC PO SCH (10:01)
[2018-12-04] MEDS: SODIUM CHLORIDE FLUSH SYRINGE 10 ML IV SCH ×2 (10:02→22:50)
--- NOTE | 2018-12-04 11:12 | Progress Note ---
Assessment and Plan 1. ESRD: Patient is on maintenance hemodialysis three times a week, MWF schedule. Hemodialysis: 11/29, 12/02. 2. FEN: Monitor. 3. Nausea & vomiting: Improved. 4. Involuntary movements: Improved. 5. Diabetes mellitus. 6. Hypertension. 7. Physical deconditioning. Await placement. Subjective Date of service: 12/04/18 Interval history: Patient was seen and examined at the bedside. Objective - Vital Signs Vital signs: Vital Signs - 12hr 12/03/18 12/04/18 12/04/18 23:21 05:33 10:00 Temperature 98.4 F 97.5 F L Pulse Rate 59 L 58 L 63 Respiratory 16 18 Rate Blood Pressure 152/73 134/51 129/61 O2 Sat by Pulse 100 100 Oximetry - General Appearance General appearance: well-developed, appears stated age, other (no distress) EENT: ATNC Neck: supple Respiratory: Present: Clear to Ascultation Cardiology: regular, S1S2, no murmurs Gastrointestinal: normoactive bowel sounds, no tenderness, no distended Integumentary: no rash, warm and dry Neurologic: confused, disoriented, other (L UE weakness, R eye blind) Musculoskeletal: other (L arm AVF) - Lab 12/04/18 05:37 12/04/18 05:37 Most recent lab results Calcium 8.9 mg/dL (8.4-10.2) 12/04/18 05:37 Phosphorus 3.30 mg/dL (2.5-4.5) 12/01/18 04:42 Magnesium 2.10 mg/dL (1.7-2.3) 11/28/18 17:59 Medications & Allergies - Medications Allergies/Adverse Reactions: Allergies No Known Allergies Allergy (Unverified 06/22/16 20:11) Home Medications: Home Medications Medication Instructions Recorded Confirmed Last Taken Type Losartan [Cozaar] 25 mg PO QDAY 11/29/18 11/29/18 Unknown History Metoclopramide HCl [Reglan TAB] 5 mg PO QID 11/29/18 11/29/18 Unknown History Metoprolol Succinate 200 mg PO DAILY 11/29/18 11/29/18 Unknown History Valsartan [Diovan] 320 mg PO QDAY 11/29/18 11/29/18 Unknown History amLODIPine [Norvasc] 10 mg PO DAILY 11/29/18 11/29/18 Unknown History AtorvaSTATin [Lipitor] 10 mg PO QHS tablet 12/04/18 Unknown Rx Metoclopramide [Reglan TAB] 5 mg PO QID tablet 12/04/18 Unknown Rx Metoprolol Xl [Metoprolol 200 mg PO QDAY tablet 12/04/18 Unknown Rx SUCCINATE ER TAB] Minoxidil [Loniten] 2.5 mg PO BID tablet 12/04/18 Unknown Rx Ondansetron [Zofran ODT TAB] 4 mg PO Q8HR tab.rapdis 12/04/18 Unknown Rx Pantoprazole [Protonix TAB] 20 mg PO QDAY tablet. 12/04/18 Unknown Rx Sertraline [Zoloft] 50 mg PO QDAY tablet 12/04/18 Unknown Rx Sevelamer Carbonate [Renvela] 800 mg PO TIDWM tablet 12/04/18 Unknown Rx Valsartan [Diovan] 320 mg PO QDAY tablet 12/04/18 Unknown Rx amLODIPine [Norvasc] 10 mg PO DAILY tablet 12/04/18 Unknown Rx cloNIDine [Catapres] 0.1 mg PO Q4H PRN tablet 12/04/18 Unknown Rx hydrALAZINE [Apresoline TAB] 50 mg PO DAILY tablet 12/04/18 Unknown Rx Active Medications: Generic Name Dose Route Start Last Admin Trade Name Freq PRN Reason Stop Dose Admin Acetaminophen 650 mg 11/29/18 13:40 Tylenol PO Q4H PRN Pain MILD(1-3)/Fever >100.5/POWERS Amlodipine Besylate 10 mg 11/29/18 23:00 12/04/18 10:01 Norvasc PO 10 mg DAILY SALTY Administration Atorvastatin Calcium 10 mg 11/29/18 22:00 12/03/18 22:17 Lipitor PO 10 mg QHS SALTY Administration Clonidine HCl 0.1 mg 11/29/18 22:41 Catapres PO Q4H PRN Increased Blood Pressure Dextrose 50 ml 11/30/18 12:35 D50w (25gm) Syringe IV PRN PRN Hypoglycemia Heparin Sodium (Porcine) 5,000 unit 11/30/18 10:00 12/04/18 09:51 Heparin SUB-Q 5,000 unit Q12HR SALTY Administration Hydralazine HCl 50 mg 11/29/18 23:00 12/04/18 10:00 Apresoline PO 50 mg DAILY SALTY Administration Sodium Chloride 100 mls @ 999 mls/hr 11/29/18 14:50 Nacl 0.9% IV PARMJIT PRN Hypotension Insulin Human Lispro 0 unit 11/30/18 16:30 12/04/18 08:31 Humalog SUB-Q Not Given ACHS [facility] Protocol Metoclopramide HCl 5 mg 11/29/18 22:00 12/04/18 09:56 Reglan PO 5 mg QID SALTY Administration Metoprolol Succinate 200 mg 11/29/18 23:00 12/04/18 10:01 Toprol Xl PO 200 mg QDAY SALTY Administration Minoxidil 2.5 mg 11/29/18 22:00 12/04/18 09:56 Loniten PO 2.5 mg BID SALTY Administration Ondansetron HCl 4 mg 11/29/18 13:40 Zofran IV Q8H PRN Nausea And Vomiting Ondansetron HCl 4 mg 11/29/18 22:00 12/04/18 06:24 Zofran Odt PO 4 mg Q8HR SALTY Administration Pantoprazole Sodium 20 mg 11/30/18 10:00 12/04/18 09:56 Protonix PO 20 mg QDAY SALTY Administration Sertraline HCl 50 mg 11/30/18 10:00 12/04/18 09:56 Zoloft PO 50 mg QDAY SALTY Administration Sevelamer Carbonate 800 mg 11/30/18 08:00 12/04/18 09:55 Renvela PO 800 mg TIDWM SALTY Administration Sodium Chloride 10 ml 11/29/18 22:00 12/04/18 10:02 Sodium Chloride Flush Syringe 10 Ml IV 10 ml BID SALTY Administration Sodium Chloride 10 ml 11/29/18 13:40 Sodium Chloride Flush Syringe 10 Ml IV PRN PRN LINE FLUSH Valsartan 320 mg 11/29/18 23:00 12/04/18 10:01 Diovan PO 320 mg QDAY SALTY Administration
[2018-12-05] MEDS: ZOFRAN ODT PO SCH ×2 (06:48→14:30)
[2018-12-05] MEDS: HumaLOG SUB-Q SCH ×2 (07:30→11:30)
[2018-12-05] MEDS: RENVELA PO SCH ×3 (08:00→12:37)
--- NOTE | 2018-12-05 09:09 | Progress Note ---
Assessment and Plan 1. ESRD: Patient is on maintenance hemodialysis three times a week, MWF schedule. Hemodialysis: 11/29, 12/02, today. 2. FEN: Monitor. 3. Nausea & vomiting: Improved. 4. Involuntary movements: Improved. 5. Diabetes mellitus. 6. Hypertension. 7. Physical deconditioning. Await placement. Subjective Date of service: 12/05/18 Interval history: Patient was seen and examined at the bedside. Objective - Vital Signs Vital signs: Vital Signs - 12hr 12/04/18 12/05/18 23:52 05:24 Temperature 98.0 F 98.3 F Pulse Rate 64 62 Respiratory 20 18 Rate Blood Pressure 108/52 157/80 O2 Sat by Pulse 98 98 Oximetry - General Appearance General appearance: well-developed, appears stated age, other (no distress) EENT: ATNC, other (R eye sclerotic) Neck: supple Respiratory: Present: Clear to Ascultation Cardiology: regular, S1S2, no murmurs Gastrointestinal: normoactive bowel sounds, no tenderness, no distended Integumentary: no rash, warm and dry (R) Neurologic: other ( eye blindness) Musculoskeletal: other (L arm AVF, no edema) - Lab 12/04/18 05:37 12/04/18 05:37 Most recent lab results Calcium 8.9 mg/dL (8.4-10.2) 12/04/18 05:37 Phosphorus 3.30 mg/dL (2.5-4.5) 12/01/18 04:42 Magnesium 2.10 mg/dL (1.7-2.3) 11/28/18 17:59 Medications & Allergies - Medications Allergies/Adverse Reactions: Allergies No Known Allergies Allergy (Unverified 06/22/16 20:11) Home Medications: Home Medications Medication Instructions Recorded Confirmed Last Taken Type Losartan [Cozaar] 25 mg PO QDAY 11/29/18 11/29/18 Unknown History Metoclopramide HCl [Reglan TAB] 5 mg PO QID 11/29/18 11/29/18 Unknown History Metoprolol Succinate 200 mg PO DAILY 11/29/18 11/29/18 Unknown History Valsartan [Diovan] 320 mg PO QDAY 11/29/18 11/29/18 Unknown History amLODIPine [Norvasc] 10 mg PO DAILY 11/29/18 11/29/18 Unknown History AtorvaSTATin [Lipitor] 10 mg PO QHS tablet 12/04/18 Unknown Rx Metoclopramide [Reglan TAB] 5 mg PO QID tablet 12/04/18 Unknown Rx Metoprolol Xl [Metoprolol 200 mg PO QDAY tablet 12/04/18 Unknown Rx SUCCINATE ER TAB] Minoxidil [Loniten] 2.5 mg PO BID tablet 12/04/18 Unknown Rx Ondansetron [Zofran ODT TAB] 4 mg PO Q8HR tab.rapdis 12/04/18 Unknown Rx Pantoprazole [Protonix TAB] 20 mg PO QDAY tablet. 12/04/18 Unknown Rx Sertraline [Zoloft] 50 mg PO QDAY tablet 12/04/18 Unknown Rx Sevelamer Carbonate [Renvela] 800 mg PO TIDWM tablet 12/04/18 Unknown Rx Valsartan [Diovan] 320 mg PO QDAY tablet 12/04/18 Unknown Rx amLODIPine [Norvasc] 10 mg PO DAILY tablet 12/04/18 Unknown Rx cloNIDine [Catapres] 0.1 mg PO Q4H PRN tablet 12/04/18 Unknown Rx hydrALAZINE [Apresoline TAB] 50 mg PO DAILY tablet 12/04/18 Unknown Rx Active Medications: Generic Name Dose Route Start Last Admin Trade Name Freq PRN Reason Stop Dose Admin Acetaminophen 650 mg 11/29/18 13:40 Tylenol PO Q4H PRN Pain MILD(1-3)/Fever >100.5/POWERS Amlodipine Besylate 10 mg 11/29/18 23:00 12/04/18 10:01 Norvasc PO 10 mg DAILY SALTY Administration Atorvastatin Calcium 10 mg 11/29/18 22:00 12/04/18 22:50 Lipitor PO 10 mg QHS SALTY Administration Clonidine HCl 0.1 mg 11/29/18 22:41 Catapres PO Q4H PRN Increased Blood Pressure Dextrose 50 ml 11/30/18 12:35 D50w (25gm) Syringe IV PRN PRN Hypoglycemia Heparin Sodium (Porcine) 5,000 unit 11/30/18 10:00 12/04/18 22:50 Heparin SUB-Q 5,000 unit Q12HR SALTY Administration Hydralazine HCl 50 mg 11/29/18 23:00 12/04/18 10:00 Apresoline PO 50 mg DAILY SALTY Administration Sodium Chloride 100 mls @ 999 mls/hr 11/29/18 14:50 Nacl 0.9% IV PARMJIT PRN Hypotension Insulin Human Lispro 0 unit 11/30/18 16:30 12/05/18 07:30 Humalog SUB-Q Not Given ACHS [facility] Protocol Metoclopramide HCl 5 mg 11/29/18 22:00 12/04/18 22:50 Reglan PO 5 mg QID SALTY Administration Metoprolol Succinate 200 mg 11/29/18 23:00 12/04/18 10:01 Toprol Xl PO 200 mg QDAY SALTY Administration Minoxidil 2.5 mg 11/29/18 22:00 12/04/18 22:50 Loniten PO 2.5 mg BID SALTY Administration Ondansetron HCl 4 mg 11/29/18 13:40 Zofran IV Q8H PRN Nausea And Vomiting Ondansetron HCl 4 mg 11/29/18 22:00 12/05/18 06:48 Zofran Odt PO 4 mg Q8HR SALTY Administration Pantoprazole Sodium 20 mg 11/30/18 10:00 12/04/18 09:56 Protonix PO 20 mg QDAY SALTY Administration Sertraline HCl 50 mg 11/30/18 10:00 12/04/18 09:56 Zoloft PO 50 mg QDAY SALTY Administration Sevelamer Carbonate 800 mg 11/30/18 08:00 12/04/18 19:25 Renvela PO 800 mg TIDWM SALTY Administration Sodium Chloride 10 ml 11/29/18 22:00 12/04/18 22:50 Sodium Chloride Flush Syringe 10 Ml IV 10 ml BID SALTY Administration Sodium Chloride 10 ml 11/29/18 13:40 Sodium Chloride Flush Syringe 10 Ml IV PRN PRN LINE FLUSH Valsartan 320 mg 11/29/18 23:00 12/04/18 10:01 Diovan PO 320 mg QDAY SALTY Administration
[2018-12-05] MEDS: REGLAN PO SCH ×2 (09:41→14:30)
[2018-12-05] MEDS: SODIUM CHLORIDE FLUSH SYRINGE 10 ML IV SCH (09:41)
[2018-12-05] MEDS: PROTONIX PO SCH (09:42)
[2018-12-05] MEDS: ZOLOFT PO SCH (09:42)
[2018-12-05] MEDS: HEPARIN SUB-Q SCH (09:42)
[2018-12-05] MEDS: LONITEN PO SCH (10:00)
[2018-12-05] MEDS: APRESOLINE PO SCH (10:00)
[2018-12-05] MEDS: NORVASC PO SCH (10:00)
[2018-12-05] MEDS: DIOVAN PO SCH (10:00)
[2018-12-05] MEDS: TOPROL XL PO SCH (10:00)
--- NOTE | 2018-12-05 10:33 | Progress Note ---
Assessment and Plan Assessment and plan: Debility She has debility multifactorial secondary to hemodialysis and underlying renal disease. Patient is a candidate for group home facility and awaiting placement. Diabetes mellitus Patient did have episode of hypoglycemia but now blood sugars have been relatively well controlled. Will follow with sliding scale insulin with coverage when indicated. ESRD needing dialysis Cont. hemodialysis per nephrology GERD (gastroesophageal reflux disease) Continue proton pump inhibitor. Hypertensive urgency, malignant Regimen control with the addition of amlodipine minoxidil and hydralazine. Metoprolol was also added for hypertensive urgency. Nausea & vomiting Resolved Malnutrition Mild malnutrition. History Interval history: No new issues overnight. Hospitalist Physical - Constitutional Vitals: Temp Pulse Resp BP Pulse Ox 98.3 F 62 18 157/80 98 12/05/18 05:24 12/05/18 05:24 12/05/18 05:24 12/05/18 05:24 12/05/18 05:24 General appearance: Present: no acute distress, well-nourished - EENT Eyes: Present: PERRL, EOM intact ENT: hearing intact, clear oral mucosa, dentition normal - Neck Neck: Present: supple, normal ROM - Respiratory Respiratory effort: normal Respiratory: bilateral: CTA - Cardiovascular Rhythm: regular Heart Sounds: Present: S1 & S2. Absent: gallop, rub - Extremities Extremities: no ischemia, No edema, Full ROM - Abdominal General gastrointestinal: soft, non-tender, non-distended, normal bowel sounds - Integumentary Integumentary: Present: clear, warm, dry - Neurologic Neurologic: CNII-XII intact, moves all extremities Results - Labs CBC & Chem 7: 12/04/18 05:37 12/04/18 05:37 Labs: Laboratory Last Values WBC 5.0 K/mm3 (4.5-11.0) 12/04/18 05:37 RBC 4.25 M/mm3 (3.65-5.03) 12/04/18 05:37 Hgb 12.2 gm/dl (10.1-14.3) 12/04/18 05:37 Hct 37.5 % (30.3-42.9) 12/04/18 05:37 MCV 88 fl (79-97) 12/04/18 05:37 MCH 29 pg (28-32) 12/04/18 05:37 MCHC 33 % (30-34) 12/04/18 05:37 RDW 15.1 % (13.2-15.2) 12/04/18 05:37 Plt Count 147 K/mm3 (140-440) 12/04/18 05:37 Lymph % (Auto) 29.8 % (13.4-35.0) 12/04/18 05:37 Mcdonald % (Auto) 8.9 % (0.0-7.3) H 12/04/18 05:37 Eos % (Auto) 2.6 % (0.0-4.3) 12/04/18 05:37 Baso % (Auto) 0.9 % (0.0-1.8) 12/04/18 05:37 Lymph # 1.5 K/mm3 (1.2-5.4) 12/04/18 05:37 Mcdonald # 0.4 K/mm3 (0.0-0.8) 12/04/18 05:37 Eos # 0.1 K/mm3 (0.0-0.4) 12/04/18 05:37 Baso # 0.0 K/mm3 (0.0-0.1) 12/04/18 05:37 Seg Neutrophils % 57.8 % (40.0-70.0) 12/04/18 05:37 Seg Neutrophils # 2.9 K/mm3 (1.8-7.7) 12/04/18 05:37 Sodium 136 mmol/L (137-145) L 12/04/18 05:37 Potassium 4.2 mmol/L (3.6-5.0) 12/04/18 05:37 Chloride 94.7 mmol/L (98-107) L 12/04/18 05:37 Carbon Dioxide 25 mmol/L (22-30) 12/04/18 05:37 21 mmol/L 12/04/18 05:37 BUN 18 mg/dL (7-17) H 12/04/18 05:37 4.8 mg/dL (0.7-1.2) H 12/04/18 05:37 Estimated GFR 11 ml/min 12/04/18 05:37 4 % 12/04/18 05:37 Glucose 92 mg/dL (65-100) 12/04/18 05:37 POC Glucose 78 (70-105) 12/05/18 08:15 Calcium 8.9 mg/dL (8.4-10.2) 12/04/18 05:37 Phosphorus 3.30 mg/dL (2.5-4.5) 12/01/18 04:42 Magnesium 2.10 mg/dL (1.7-2.3) 11/28/18 17:59 0.50 mg/dL (0.1-1.2) 11/28/18 17:59 AST 18 units/L (5-40) 11/28/18 17:59 ALT 7 units/L (7-56) 11/28/18 17:59 72 units/L (35-129) 11/28/18 17:59 0.256 ng/mL (0.00-0.029) H* 11/28/18 22:30 6.4 g/dL (6.3-8.2) 11/28/18 17:59 3.6 g/dL (3.9-5) L 11/28/18 17:59 1.3 % 11/28/18 17:59 Triglycerides 96 mg/dL (2-149) 11/28/18 17:59 Cholesterol 131 mg/dL (50-199) 11/28/18 17:59 64 mg/dL (50-130) 11/28/18 17:59 58 mg/dL (40-59) 11/28/18 17:59 2.25 % 11/28/18 17:59 13 units/L (13-60) 11/28/18 17:59 Hepatitis A IgM Ab Non-reactive (NonReactive) 11/29/18 21:02 Hep Bs Antigen Non-reactive (Negative) 11/29/18 21:02 Hep B Core IgM Ab Non-reactive (NonReactive) 11/29/18 21:02 Non-reactive (NonReactive) 11/29/18 21:02 Active Medications - Current Medications Current Medications: Generic Name Dose Route Start Last Admin Trade Name Freq PRN Reason Stop Dose Admin Acetaminophen 650 mg 11/29/18 13:40 Tylenol PO Q4H PRN Pain MILD(1-3)/Fever >100.5/POWERS Amlodipine Besylate 10 mg 11/29/18 23:00 12/04/18 10:01 Norvasc PO 10 mg DAILY SALTY Administration Atorvastatin Calcium 10 mg 11/29/18 22:00 12/04/18 22:50 Lipitor PO 10 mg QHS SALTY Administration Clonidine HCl 0.1 mg 11/29/18 22:41 Catapres PO Q4H PRN Increased Blood Pressure Dextrose 50 ml 11/30/18 12:35 D50w (25gm) Syringe IV PRN PRN Hypoglycemia Heparin Sodium (Porcine) 5,000 unit 11/30/18 10:00 12/05/18 09:42 Heparin SUB-Q 5,000 unit Q12HR SALTY Administration Hydralazine HCl 50 mg 11/29/18 23:00 12/04/18 10:00 Apresoline PO 50 mg DAILY SALTY Administration Sodium Chloride 100 mls @ 999 mls/hr 11/29/18 14:50 Nacl 0.9% IV PARMJIT PRN Hypotension Insulin Human Lispro 0 unit 11/30/18 16:30 12/05/18 07:30 Humalog SUB-Q Not Given ACHS [facility]TY Protocol Metoclopramide HCl 5 mg 11/29/18 22:00 12/05/18 09:41 Reglan PO 5 mg QID SALTY Administration Metoprolol Succinate 200 mg 11/29/18 23:00 12/04/18 10:01 Toprol Xl PO 200 mg QDAY SALTY Administration Minoxidil 2.5 mg 11/29/18 22:00 12/04/18 22:50 Loniten PO 2.5 mg BID SALTY Administration Ondansetron HCl 4 mg 11/29/18 13:40 Zofran IV Q8H PRN Nausea And Vomiting Ondansetron HCl 4 mg 11/29/18 22:00 12/05/18 06:48 Zofran Odt PO 4 mg Q8HR SALTY Administration Pantoprazole Sodium 20 mg 11/30/18 10:00 12/05/18 09:42 Protonix PO 20 mg QDAY SALTY Administration Sertraline HCl 50 mg 11/30/18 10:00 12/05/18 09:42 Zoloft PO 50 mg QDAY SALTY Administration Sevelamer Carbonate 800 mg 11/30/18 08:00 12/05/18 08:00 Renvela PO 800 mg TIDWM SALTY Administration Sodium Chloride 10 ml 11/29/18 22:00 12/05/18 09:41 Sodium Chloride Flush Syringe 10 Ml IV 10 ml BID SALTY Administration Sodium Chloride 10 ml 11/29/18 13:40 Sodium Chloride Flush Syringe 10 Ml IV PRN PRN LINE FLUSH Valsartan 320 mg 11/29/18 23:00 12/04/18 10:01 Diovan PO 320 mg QDAY SALTY Administration
[2018-12-05 16:33] VITALS: BP 127/56
== END 2018-12-05 18:16 | DRG 640 ==
LOC: ED 15:09 → 3A 11-29 13:40
PROVIDERS: ADMIT Internal Medicine; ATTEND Hospitalist
PROC: 5A1D70Z Performance of Urinary Filtration, Intermittent, Less than 6 Hours Per Day (ICD-10-PCS; principal; 2018-11-29)
PROC: 5A1D70Z Performance of Urinary Filtration, Intermittent, Less than 6 Hours Per Day (ICD-10-PCS; 2018-12-02)
PROC: 5A1D70Z Performance of Urinary Filtration, Intermittent, Less than 6 Hours Per Day (ICD-10-PCS; 2018-12-05)
DX: E87.1 Hypo-osmolality and hyponatremia (principal); N18.6 End stage renal disease; E44.1 Mild protein-calorie malnutrition; I12.0 Hypertensive chronic kidney disease with stage 5 chronic kidney disease or end stage renal disease; K21.9 Gastro-esophageal reflux disease without esophagitis; I16.0 Hypertensive urgency; F03.90 Unspecified dementia, unspecified severity, without behavioral disturbance, psychotic disturbance, mood disturbance, and anxiety; E21.3 Hyperparathyroidism, unspecified; R25.9 Unspecified abnormal involuntary movements; E11.22 Type 2 diabetes mellitus with diabetic chronic kidney disease; H54.40 Blindness, one eye, unspecified eye; Z86.73 Personal history of transient ischemic attack (TIA), and cerebral infarction without residual deficits; Z79.4 Long term (current) use of insulin; Z99.2 Dependence on renal dialysis; Z82.49 Family history of ischemic heart disease and other diseases of the circulatory system; Z83.3 Family history of diabetes mellitus; Z79.899 Other long term (current) drug therapy; Z68.20 Body mass index [BMI] 20.0-20.9, adult
CPT/HCPCS: 36415; 71045; 80048; 80053; 80061; 80074; 82962; 83690; 83735; 84100; 84484; 85025; 87116; 93005; 93010; 94760; G0378; A9270-GY; J1644; J1815; J2405; J3246; Q0162

== ENCOUNTER 2018-12-28 16:38 | Inpatient (IN) | payer MEDICARE ==
--- NOTE | 2018-12-28 17:06 | Emergency Department Report ---
ED Neuro Deficit HPI - General Stated Complaint: STROKE Time Seen by Provider: 12/28/18 16:45 Source: patient, EMS, old records reviewed Mode of arrival: Stretcher Limitations: No Limitations - History of Present Illness Initial Comments: CC: "I feel like something is wrong with me." HPI: Mrs. Moise is a 56 yo female with history of diabetes mellitus, CVA, dementia, anemia ESRD on hemodialysis Wednesday who presents from dialysis presents with slurred speech. Unknown time last normal. She feels that her speech is at baseline. However she just seems all. She feels sick. She did not receive hemodialysis today. She denies any pain. No new weakness in her extremities. She denies pain. I had previously evaluated this patient last month for progressive weakness and functional decline over several months. Mrs. Moise recently relocated to [place] to be cared for by her son. She is currently residing at [facility]. -: Gradual, unknown Location: speech Place: other (S[facility] HD clinic) Improves With: none Worsens With: none On Anticoagulants: No Context: gradual onset Associated Symptoms: malise Treatments Prior to Arrival: none - Related Data Home Medications: Home Medications Medication Instructions Recorded Confirmed Last Taken Losartan [Cozaar] 25 mg PO QDAY 11/29/18 11/29/18 Unknown Metoclopramide HCl [Reglan TAB] 5 mg PO QID 11/29/18 11/29/18 Unknown Metoprolol Succinate 200 mg PO DAILY 11/29/18 11/29/18 Unknown Valsartan [Diovan] 320 mg PO QDAY 11/29/18 11/29/18 Unknown amLODIPine [Norvasc] 10 mg PO DAILY 11/29/18 11/29/18 Unknown Previous Rx's Medication Instructions Recorded Last Taken Type AtorvaSTATin [Lipitor] 10 mg PO QHS tablet 12/04/18 Unknown Rx Metoclopramide [Reglan TAB] 5 mg PO QID tablet 12/04/18 Unknown Rx Metoprolol Xl [Metoprolol 200 mg PO QDAY tablet 12/04/18 Unknown Rx SUCCINATE ER TAB] Minoxidil [Loniten] 2.5 mg PO BID tablet 12/04/18 Unknown Rx Ondansetron [Zofran ODT TAB] 4 mg PO Q8HR tab.rapdis 12/04/18 Unknown Rx Pantoprazole [Protonix TAB] 20 mg PO QDAY tablet. 12/04/18 Unknown Rx Sertraline [Zoloft] 50 mg PO QDAY tablet 12/04/18 Unknown Rx Sevelamer Carbonate [Renvela] 800 mg PO TIDWM tablet 12/04/18 Unknown Rx Valsartan [Diovan] 320 mg PO QDAY tablet 12/04/18 Unknown Rx amLODIPine [Norvasc] 10 mg PO DAILY tablet 12/04/18 Unknown Rx cloNIDine [Catapres] 0.1 mg PO Q4H PRN tablet 12/04/18 Unknown Rx hydrALAZINE [Apresoline TAB] 50 mg PO DAILY tablet 12/04/18 Unknown Rx Allergies/Adverse Reactions: Allergies Allergy/AdvReac Type Severity Reaction Status Date / Time No Known Allergies Allergy Unverified 06/22/16 20:11 ED Review of Systems ROS: Stated complaint: STROKE Other details as noted in HPI Comment: All other systems reviewed and negative Constitutional: malaise Neurological: denies: headache, weakness, numbness, paresthesias, confusion ED Past Medical Hx - Past Medical History Previous Medical History?: Yes Hx Hypertension: Yes Hx Congestive Heart Failure: No Hx Diabetes: Yes Hx GERD: Yes Hx Asthma: No Hx COPD: No Hx HIV: No - Surgical History Past Surgical History?: Yes Additional Surgical History: Blind Right eye - Social History Smoking Status: Former Smoker - Medications Home Medications: Home Medications Medication Instructions Recorded Confirmed Last Taken Type Losartan [Cozaar] 25 mg PO QDAY 11/29/18 11/29/18 Unknown History Metoclopramide HCl [Reglan TAB] 5 mg PO QID 11/29/18 11/29/18 Unknown History Metoprolol Succinate 200 mg PO DAILY 11/29/18 11/29/18 Unknown History Valsartan [Diovan] 320 mg PO QDAY 11/29/18 11/29/18 Unknown History amLODIPine [Norvasc] 10 mg PO DAILY 11/29/18 11/29/18 Unknown History AtorvaSTATin [Lipitor] 10 mg PO QHS tablet 12/04/18 Unknown Rx Metoclopramide [Reglan TAB] 5 mg PO QID tablet 12/04/18 Unknown Rx Metoprolol Xl [Metoprolol 200 mg PO QDAY tablet 12/04/18 Unknown Rx SUCCINATE ER TAB] Minoxidil [Loniten] 2.5 mg PO BID tablet 12/04/18 Unknown Rx Ondansetron [Zofran ODT TAB] 4 mg PO Q8HR tab.rapdis 12/04/18 Unknown Rx Pantoprazole [Protonix TAB] 20 mg PO QDAY tablet. 12/04/18 Unknown Rx Sertraline [Zoloft] 50 mg PO QDAY tablet 12/04/18 Unknown Rx Sevelamer Carbonate [Renvela] 800 mg PO TIDWM tablet 12/04/18 Unknown Rx Valsartan [Diovan] 320 mg PO QDAY tablet 12/04/18 Unknown Rx amLODIPine [Norvasc] 10 mg PO DAILY tablet 12/04/18 Unknown Rx cloNIDine [Catapres] 0.1 mg PO Q4H PRN tablet 12/04/18 Unknown Rx hydrALAZINE [Apresoline TAB] 50 mg PO DAILY tablet 12/04/18 Unknown Rx ED Neuro Physical Exam - General General appearance: alert, in no apparent distress, other (appears chronically ill but non toxic, alert slow speech but fluid) Suspected Stroke: Yes - Head Head exam: Present: atraumatic, normocephalic - Eye Eye exam: Present: other (enucleation right eye, eyelids closed together) - ENT ENT exam: Present: mucous membranes moist - Neck Neck exam: Present: normal inspection - Respiratory Respiratory exam: Present: normal lung sounds bilaterally. Absent: respiratory distress, wheezes, rales, rhonchi - Cardiovascular Cardiovascular Exam: Present: regular rate, normal rhythm, normal heart sounds. Absent: rubs, gallop - GI/Abdominal GI/Abdominal exam: Present: soft, normal bowel sounds. Absent: distended, tenderness, guarding, rebound - Extremities Exam Extremities exam: Present: normal inspection - Neurological Exam Neurological exam: Present: alert, oriented X3 - NIHSS Assessment Interval: Baseline 1a. Level of Consciousness: alert/keenly responsive 1b. LOC Questions: answers both correctly 1c. LOC Commands: performs tasks correctly 2. Best Gaze: normal 3. Visual: no visual loss 4. Facial Palsy: normal symmetrical movement 5b. Motor Arm Right: no drift 5a. Motor Arm Left: no drift 6a. Motor Leg Left: no drift 6b. Motor Leg Right: no drift 7. Limb Ataxia: absent 8. Sensory: normal 9. Best Language: no aphasia 10. Dysarthria: normal 11. Extinction/Inattention: no abnormality Total Score: 0 Stroke Severity: No Stroke Symptoms - Psychiatric Psychiatric exam: Present: normal affect, normal mood - Skin Skin exam: Present: warm, dry, intact, normal color. Absent: rash ED Course Vital Signs 12/28/18 17:13 Temperature 97.8 F Pulse Rate 63 Respiratory 16 Rate Blood Pressure 176/73 O2 Sat by Pulse 100 Oximetry - Lab Data Result diagrams: 12/28/18 17:10 12/28/18 17:10 Lab Results 12/28/18 12/28/18 12/28/18 Range/Units 17:05 17:10 17:10 WBC 4.7 (4.5-11.0) K/mm3 RBC 4.14 (3.65-5.03) M/mm3 Hgb 11.7 (10.1-14.3) gm/dl Hct 36.9 (30.3-42.9) % MCV 89 (79-97) fl MCH 28 (28-32) pg MCHC 32 (30-34) % RDW 16.1 H (13.2-15.2) % Plt Count 160 (140-440) K/mm3 Lymph % (Auto) 34.6 (13.4-35.0) % Stark % (Auto) 9.8 H (0.0-7.3) % Eos % (Auto) 2.1 (0.0-4.3) % Baso % (Auto) 1.0 (0.0-1.8) % Lymph # 1.6 (1.2-5.4) K/mm3 Stark # 0.5 (0.0-0.8) K/mm3 Eos # 0.1 (0.0-0.4) K/mm3 Baso # 0.0 (0.0-0.1) K/mm3 Seg Neutrophils % 52.5 (40.0-70.0) % Seg Neutrophils # 2.5 (1.8-7.7) K/mm3 PT 13.2 (12.2-14.9) Sec. INR 1.03 (0.87-1.13) APTT 28.1 (24.2-36.6) Sec. Thrombin Time (15.1-19.6) Sec. Sodium (137-145) mmol/L Potassium (3.6-5.0) mmol/L Chloride (98-107) mmol/L Carbon Dioxide (22-30) mmol/L Anion Gap mmol/L BUN (7-17) mg/dL Creatinine (0.7-1.2) mg/dL Estimated GFR ml/min BUN/Creatinine Ratio % Glucose (65-100) mg/dL POC Glucose 116 H (70-105) Calcium (8.4-10.2) mg/dL Troponin T (0.00-0.029) ng/mL Triglycerides (2-149) mg/dL Cholesterol (50-199) mg/dL LDL Cholesterol Direct (50-130) mg/dL HDL Cholesterol (40-59) mg/dL Cholesterol/HDL Ratio % 12/28/18 12/28/18 Range/Units 17:10 17:10 WBC (4.5-11.0) K/mm3 RBC (3.65-5.03) M/mm3 Hgb (10.1-14.3) gm/dl Hct (30.3-42.9) % MCV (79-97) fl MCH (28-32) pg MCHC (30-34) % RDW (13.2-15.2) % Plt Count (140-440) K/mm3 Lymph % (Auto) (13.4-35.0) % Stark % (Auto) (0.0-7.3) % Eos % (Auto) (0.0-4.3) % Baso % (Auto) (0.0-1.8) % Lymph # (1.2-5.4) K/mm3 Stark # (0.0-0.8) K/mm3 Eos # (0.0-0.4) K/mm3 Baso # (0.0-0.1) K/mm3 Seg Neutrophils % (40.0-70.0) % Seg Neutrophils # (1.8-7.7) K/mm3 PT (12.2-14.9) Sec. INR (0.87-1.13) APTT (24.2-36.6) Sec. Thrombin Time 17.7 (15.1-19.6) Sec. Sodium 141 (137-145) mmol/L Potassium 3.9 (3.6-5.0) mmol/L Chloride 98.0 (98-107) mmol/L Carbon Dioxide 31 H (22-30) mmol/L Anion Gap 16 mmol/L BUN 25 H (7-17) mg/dL Creatinine 4.7 H (0.7-1.2) mg/dL Estimated GFR 11 ml/min BUN/Creatinine Ratio 5 % Glucose 106 H (65-100) mg/dL POC Glucose (70-105) Calcium 9.1 (8.4-10.2) mg/dL Troponin T 0.238 H* (0.00-0.029) ng/mL Triglycerides 65 (2-149) mg/dL Cholesterol 146 (50-199) mg/dL LDL Cholesterol Direct 74 (50-130) mg/dL HDL Cholesterol 72 H (40-59) mg/dL Cholesterol/HDL Ratio 2.02 % 12/28/18 17:04 EKG EKG obtained 1657 Rate 60 bpm normal sinus rhythm normal axis normal intervals no ST-T signs of ischemia poor R-wave progression in the anterior leads - Radiology Data Radiology results: report reviewed pcxr: NAP Head CT showed atrophy, advanced microvascular disease, remote left cerebellar infarct. - Medical Decision Making Mrs. Moise presents from snf facility to hemodialysis clinic for appointment of slurred speech. Her speech is somewhat slow. However according to my previous exam in November, I do not detect a new speech disturbance. Patient states that she feels like "something is going on with me". She feels sick. COde stroke activated. Teleneurologist evaluated patient. Differentialdiagnosis includes including delirium due to metabolic derangement considering history ESRD, infection, CVA, seizure, ACS, volume shifts leading to hypotension. Admitted to the hospital service for further treatment and evaluation. Due to a myriad of etiologies, TPA is not indicated without present neuro deficits. CBC within normal limits potassium normal, troponin equivocal in this setting I have consulted patient's nephrology group. Admitted to hospitalist service - Thrombolytic Inclusion/Exclusion Thrombolytic Exclusion Criteria: Onset of Symptoms Unknown Thrombolytic Contraindications: Rapidily Improving s/s Critical Care Time: Yes Critical care attestation.: If time is entered above; I have spent that time in minutes in the direct care of this critically ill patient, excluding procedure time. 40 minutes of critical care time excluding procedures were used in the care of the patient. Patient required multiple assessments and interventions. I reviewed the electronic medical record. I spoke with consultants involved in the care of the patient. ED Disposition Clinical Impression: Acute metabolic encephalopathy, TIA (transient ischemic attack), Delirium, Altered mental status Disposition: [id number] OP ADMIT IP TO THIS HOSP Is pt being admited?: Yes Does the pt Need Aspirin: Yes Condition: Stable
[2018-12-28 17:17] LABS: Eosinophils # (Auto) 0.1 K/mm3 (0.0-0.4); Eosinophils % (Auto) 2.1 % (0.0-4.3); Hematocrit 36.9 % (30.3-42.9); Hemoglobin 11.7 gm/dl (10.1-14.3); Lymphocytes # (Auto) 1.6 K/mm3 (1.2-5.4); Lymphocytes % (Auto) 34.6 % (13.4-35.0); Mean Corpuscular HGB Conc 32 % (30-34); Mean Corpuscular Volume 89 fl (79-97); Monocytes # (Auto) 0.5 K/mm3 (0.0-0.8); Monocytes % (Auto) 9.8 % (0.0-7.3); Platelet Count 160 K/mm3 (140-440); Red Blood Count 4.14 M/mm3 (3.65-5.03); Red Cell Distribution Width 16.1 % (13.2-15.2)
--- NOTE | 2018-12-28 17:22 | Cat Scan Report ---
CT HEAD WITHOUT CONTRAST INDICATION / CLINICAL INFORMATION: neuro deficits <6hrs or sx present upon awakening. Slurred speech. TECHNIQUE: All CT scans at this location are performed using CT dose reduction for ALARA by means of automated e xposure control. COMPARISON: Head CT 06/22/2016 FINDINGS: HEMORRHAGE: No evidence of intracranial hemorrhage or extra-axial fluid collection. EXTRA-AXIAL SPACES: Cortical sulci and sylvian fissures are enlarged reflecting a degree of parenchym al volume loss which is prominent given the patient's age of 58 years. Basilar cisterns have an unrem arkable appearance. VENTRICULAR SYSTEM: The third and lateral ventricles are enlarged reflecting the presence of prominen t parenchymal volume loss. CEREBRAL PARENCHYMA: Periventricular and deep white matter lucency is observed. This is probably seco ndary to microvascular ischemic change. There is no indication of recent infarction. No areas of ence phalomalacia are identified. MIDLINE SHIFT OR HERNIATION: There is no mass effect. CEREBELLUM / BRAINSTEM: Brainstem has an unremarkable appearance. There is evidence of a remote left cerebellar infarction in a anterior inferior cerebellar artery distribution. In retrospect early find ings of cerebellar infarction can be identified on previous study in this same distribution. INTRACRANIAL VESSELS:Calcified atherosclerotic plaque is present along the course of the cavernous se gments of both internal carotid arteries. Similar findings are seen at the distal vertebral arteries. 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 Correlation wit h surgical history is suggested. The left orbit has an unremarkable appearance. SOFT TISSUES of HEAD: No significant abnormality. CALVARIUM: Evaluation of bone windows reveals no abnormalities. PARANASAL SINUSES / MASTOID AIR CELLS: Partial opacification of the right sphenoid sinus has develope d since prior study. A retention cyst or polyp is identified the base of the left maxillary sinus. Pa ranasal sinuses are otherwise free from inflammatory mucosal disease. Mastoid air cells are normally pneumatized. IMPRESSION: 1. No acute intracranial abnormalities are identified. 2. Central greater than cortical parenchymal volume loss is noted as described above. 3. Advanced microvascular ischemic changes are observed. 4. There is no evidence of remote left cerebellar infarction in an AICA distribution Code stroke patient: I called report to Dr. Garrett in the [facility] emergency department at about 1 616 Central standard time. Signer Name: William Shannon MD Signed: 12/28/2018 5:18 PM Workstation Name: [id number]
[2018-12-28 17:30] LABS: INR 1.03 (0.87-1.13)
[2018-12-28 17:31] LABS: Partial Thromboplastin Time 28.1 Sec. (24.2-36.6)
[2018-12-28 17:38] LABS: Calcium 9.1 mg/dL (8.4-10.2)
[2018-12-28] MEDS ORDERED: ASPIRIN PO ONE (17:45)
--- NOTE | 2018-12-28 17:45 | Emergency Department Report ---
ED Neuro Deficit HPI - General Chief Complaint: Neuro Symptoms/Deficit Stated Complaint: STROKE Time Seen by Provider: 12/28/18 16:45 Source: patient, RN/MD, EMS Mode of arrival: Stretcher Limitations: No Limitations - History of Present Illness Initial Comments: [facility] Tele[facility]urology Consult Services TeleStroke Metrics: LKW: Unknown Door Time: 1638 [facility] Contacted: 1629 [facility] at Bedside: 1636 NIHSS: 1653 Decision on Alteplase: Not to give as the patient's last known well time is not definitively known, and she appears to be grossly at her baseline per ER team. Interventional Candidate: Not a candidate as her symptoms are not consistent with a large vessel proximal occlusion. Chief Complaint: Increased slurred speech HPI: Asked to see this patient in telemedicine consultation. Consultation was performed with assistance of ancillary / medical staff at bedside. Verbal consent to perform the examination with telemedicine was obtained. Patient agreed to proceed with the consultation. 58-year-old right-handed -[place] female who was brought to the emergency room by EMS from her dialysis center for increased slurred speech. At baseline, the patient has a history of a prior stroke with chronic left spastic hemiparesis that mostly affected her left arm. Patient states she does not take any aspirin. However, she also told me she lives with family but in actuality she lives in a nursing facility. According to the ER team, the patient was being taken to hemodialysis this afternoon. Then staff noticed she had slurred speech. She then was brought to the ER. Upon my evaluation, the patient was conversive and followed commands. She had severe left spastic arm weakness. She had mild weakness in both her legs. Patient overall states she feels at her baseline. Dr. Garrett, who states that she has evaluated the patient before in the ER, noted that the patient looks similar to her previous evaluations. PMH: Prior strokes with chronic left spastic hemiparesis, end-stage renal disease, diabetes mellitus, hypertension, and GERD SOC: Negative x3. Patient lives in a nursing facility. FMH: Positive for stroke ROS: 13 point review of systems were reviewed with the patient, and are all negative with the exception of the aforementioned in the history of present illness. VS: Temperature is 97.8 F, pulse 63, blood pressure 176/73, oxygen saturation 100%, respirations 16 Exam: Patient is in no apparent distress. Patient appears as stated age. No obvious acute respiratory or cardiac distress. Patient is well groomed and well-nourished. 1a- LOC: Keenly responsive - 0 1b- LOC questions: Answers both questions correctly - 0 1c- LOC commands- Performs both tasks correctly- 0 2- Gaze: Normal; no gaze paresis or gaze deviation - 0 3- Visual Moore: normal, no Visual field deficit - 0 4- Facial movements: left facial palsy - 2 5- Upper limb motor left arm drift - 3 6- Lower limb motor bilateral leg drifts - 2 7- Limb Coordination: absent ataxia - 0 8- Sensory: no sensory loss - 0 9- Language - No aphasia - 0 10- Speech - Mild dysarthria - 1 11- Neglect / Extinction - none found - 0 NIHSS score: 8 Diagnostic Data: CT of the head showed no acute intracranial process Medical Data Reviewed: 1.Data?reviewed include clinical labs, radiology,?and medical tests; 2.Tests?results discussed w/performing or interpreting physician; 3.Obtaining/reviewing old medical records; 4.Obtaining?case history from another source; 5.Independent?review of image, tracing, or specimen. Medical Decision Making: - Extensive number of diagnosis or management options are considered below. - Extensive amount of complex data reviewed; - High risk of complication and/or morbidity or mortality are associated with differential diagnostic considerations below. - There may be?uncertain?outcome and increased probability of prolonged functional impairment or high probability of severe prolonged functional impairment associated with some of these differential diagnosis. Differential Diagnosis for Stroke: 1.?Cardioembolic?stroke 2. Small vessel disease/lacune 3. Thromboembolic, [id number]-[id number] mechanism 4.?Hypercoagulable?state-related infarct 5. Transient ischemic attack 6. Thrombotic mechanism, large artery disease Assessment: 1. Acute encephalopathy with slurred speech 2. Prior strokes with left hemiparesis 3. End-stage renal disease 4. Diabetes mellitus 5. Hypertension 6. GERD Recommendations: Metabolic and infectious work-up per primary team. Can check MRI of the brain to rule out any acute intracranial process. Continue supportive care. Thank you for allowing [facility] to participate in the care of your patient. Please call me, Dr. Ruelas, with any questions at [phone]. Case discussed with the ER staff and Dr. Garrett. Critical Care notation: I was called to see this critical patient emergently. I personally evaluated this critical patient for acute stroke evaluation, and determining their eligibility for IV Alteplase and interventional therapies. I have spent approximately 29 minutes with the patient, including time at bedside, time discussing the case with other physicians, reviewing plan of care, and time independently reviewing the records and scans. Location: speech Place: other ([facility] HD clinic) Improves With: none Worsens With: none On Anticoagulants: No Treatments Prior to Arrival: none - Related Data Home Medications: Home Medications Medication Instructions Recorded Confirmed Last Taken Losartan [Cozaar] 25 mg PO QDAY 11/29/18 11/29/18 Unknown Metoclopramide HCl [Reglan TAB] 5 mg PO QID 11/29/18 11/29/18 Unknown Metoprolol Succinate 200 mg PO DAILY 11/29/18 11/29/18 Unknown Valsartan [Diovan] 320 mg PO QDAY 11/29/18 11/29/18 Unknown amLODIPine [Norvasc] 10 mg PO DAILY 11/29/18 11/29/18 Unknown Previous Rx's Medication Instructions Recorded Last Taken Type AtorvaSTATin [Lipitor] 10 mg PO QHS tablet 12/04/18 Unknown Rx Metoclopramide [Reglan TAB] 5 mg PO QID tablet 12/04/18 Unknown Rx Metoprolol Xl [Metoprolol 200 mg PO QDAY tablet 12/04/18 Unknown Rx SUCCINATE ER TAB] Minoxidil [Loniten] 2.5 mg PO BID tablet 12/04/18 Unknown Rx Ondansetron [Zofran ODT TAB] 4 mg PO Q8HR tab.raptomas 12/04/18 Unknown Rx Pantoprazole [Protonix TAB] 20 mg PO QDAY tablet. 12/04/18 Unknown Rx Sertraline [Zoloft] 50 mg PO QDAY tablet 12/04/18 Unknown Rx Sevelamer Carbonate [Renvela] 800 mg PO TIDWM tablet 12/04/18 Unknown Rx Valsartan [Diovan] 320 mg PO QDAY tablet 12/04/18 Unknown Rx amLODIPine [Norvasc] 10 mg PO DAILY tablet 12/04/18 Unknown Rx cloNIDine [Catapres] 0.1 mg PO Q4H PRN tablet 12/04/18 Unknown Rx hydrALAZINE [Apresoline TAB] 50 mg PO DAILY tablet 12/04/18 Unknown Rx Allergies/Adverse Reactions: Allergies Allergy/AdvReac Type Severity Reaction Status Date / Time No Known Allergies Allergy Unverified 06/22/16 20:11 ED Review of Systems ROS: Stated complaint: STROKE Other details as noted in HPI Constitutional: malaise Neurological: denies: headache, weakness, numbness, paresthesias, confusion ED Past Medical Hx - Past Medical History Previous Medical History?: Yes Hx Hypertension: Yes Hx Congestive Heart Failure: No Hx Diabetes: Yes Hx GERD: Yes Hx Asthma: No Hx COPD: No Hx HIV: No - Surgical History Past Surgical History?: Yes Additional Surgical History: Blind Right eye - Social History Smoking Status: Never Smoker Substance Use Type: None - Medications Home Medications: Home Medications Medication Instructions Recorded Confirmed Last Taken Type Losartan [Cozaar] 25 mg PO QDAY 11/29/18 11/29/18 Unknown History Metoclopramide HCl [Reglan TAB] 5 mg PO QID 11/29/18 11/29/18 Unknown History Metoprolol Succinate 200 mg PO DAILY 11/29/18 11/29/18 Unknown History Valsartan [Diovan] 320 mg PO QDAY 11/29/18 11/29/18 Unknown History amLODIPine [Norvasc] 10 mg PO DAILY 11/29/18 11/29/18 Unknown History AtorvaSTATin [Lipitor] 10 mg PO QHS tablet 12/04/18 Unknown Rx Metoclopramide [Reglan TAB] 5 mg PO QID tablet 12/04/18 Unknown Rx Metoprolol Xl [Metoprolol 200 mg PO QDAY tablet 12/04/18 Unknown Rx SUCCINATE ER TAB] Minoxidil [Loniten] 2.5 mg PO BID tablet 12/04/18 Unknown Rx Ondansetron [Zofran ODT TAB] 4 mg PO Q8HR tab.rapdis 12/04/18 Unknown Rx Pantoprazole [Protonix TAB] 20 mg PO QDAY tablet. 12/04/18 Unknown Rx Sertraline [Zoloft] 50 mg PO QDAY tablet 12/04/18 Unknown Rx Sevelamer Carbonate [Renvela] 800 mg PO TIDWM tablet 12/04/18 Unknown Rx Valsartan [Diovan] 320 mg PO QDAY tablet 12/04/18 Unknown Rx amLODIPine [Norvasc] 10 mg PO DAILY tablet 12/04/18 Unknown Rx cloNIDine [Catapres] 0.1 mg PO Q4H PRN tablet 12/04/18 Unknown Rx hydrALAZINE [Apresoline TAB] 50 mg PO DAILY tablet 12/04/18 Unknown Rx ED Neuro Physical Exam - General Limitations: No Limitations General appearance: alert, in no apparent distress, other (appears chronically ill but non toxic, alert slow speech but fluid) Suspected Stroke: No ED Course Vital Signs 12/28/18 17:13 Temperature 97.8 F Pulse Rate 63 Respiratory 16 Rate Blood Pressure 176/73 O2 Sat by Pulse 100 Oximetry - Lab Data Result diagrams: 12/28/18 17:10 12/28/18 17:10 Lab Results 12/28/18 12/28/18 12/28/18 Range/Units 17:05 17:10 17:10 WBC 4.7 (4.5-11.0) K/mm3 RBC 4.14 (3.65-5.03) M/mm3 Hgb 11.7 (10.1-14.3) gm/dl Hct 36.9 (30.3-42.9) % MCV 89 (79-97) fl MCH 28 (28-32) pg MCHC 32 (30-34) % RDW 16.1 H (13.2-15.2) % Plt Count 160 (140-440) K/mm3 Lymph % (Auto) 34.6 (13.4-35.0) % [place] % (Auto) 9.8 H (0.0-7.3) % Eos % (Auto) 2.1 (0.0-4.3) % Baso % (Auto) 1.0 (0.0-1.8) % Lymph # 1.6 (1.2-5.4) K/mm3 [place] # 0.5 (0.0-0.8) K/mm3 Eos # 0.1 (0.0-0.4) K/mm3 Baso # 0.0 (0.0-0.1) K/mm3 Seg Neutrophils % 52.5 (40.0-70.0) % Seg Neutrophils # 2.5 (1.8-7.7) K/mm3 PT 13.2 (12.2-14.9) Sec. INR 1.03 (0.87-1.13) APTT 28.1 (24.2-36.6) Sec. Sodium (137-145) mmol/L Potassium (3.6-5.0) mmol/L Chloride (98-107) mmol/L Carbon Dioxide (22-30) mmol/L Anion Gap mmol/L BUN (7-17) mg/dL Creatinine (0.7-1.2) mg/dL Estimated GFR ml/min BUN/Creatinine Ratio % Glucose (65-100) mg/dL POC Glucose 116 H (70-105) Calcium (8.4-10.2) mg/dL Troponin T (0.00-0.029) ng/mL 12/28/18 Range/Units 17:10 WBC (4.5-11.0) K/mm3 RBC (3.65-5.03) M/mm3 Hgb (10.1-14.3) gm/dl Hct (30.3-42.9) % MCV (79-97) fl MCH (28-32) pg MCHC (30-34) % RDW (13.2-15.2) % Plt Count (140-440) K/mm3 Lymph % (Auto) (13.4-35.0) % [place] % (Auto) (0.0-7.3) % Eos % (Auto) (0.0-4.3) % Baso % (Auto) (0.0-1.8) % Lymph # (1.2-5.4) K/mm3 [place] # (0.0-0.8) K/mm3 Eos # (0.0-0.4) K/mm3 Baso # (0.0-0.1) K/mm3 Seg Neutrophils % (40.0-70.0) % Seg Neutrophils # (1.8-7.7) K/mm3 PT (12.2-14.9) Sec. INR (0.87-1.13) APTT (24.2-36.6) Sec. Sodium 141 (137-145) mmol/L Potassium 3.9 (3.6-5.0) mmol/L Chloride 98.0 (98-107) mmol/L Carbon Dioxide 31 H (22-30) mmol/L Anion Gap 16 mmol/L BUN 25 H (7-17) mg/dL Creatinine 4.7 H (0.7-1.2) mg/dL Estimated GFR 11 ml/min BUN/Creatinine Ratio 5 % Glucose 106 H (65-100) mg/dL POC Glucose (70-105) Calcium 9.1 (8.4-10.2) mg/dL Troponin T 0.238 H* (0.00-0.029) ng/mL Critical care attestation.: If time is entered above; I have spent that time in minutes in the direct care of this critically ill patient, excluding procedure time. ED Disposition Clinical Impression: Altered mental status Disposition: DC-[id number] OP ADMIT IP TO THIS HOSP Is pt being admited?: Yes Does the pt Need Aspirin: Yes Condition: Stable
--- NOTE | 2018-12-28 17:55 | XRay Report ---
CHEST 1 VIEW 12/28/2018 5:20 PM INDICATION / CLINICAL INFORMATION: Slurred speech. COMPARISON: Chest x-ray on 12/01/2018. FINDINGS: SUPPORT DEVICES: None. HEART / MEDIASTINUM: Normal heart size. Atherosclerosis in the thoracic aorta. LUNGS / PLEURA: No significant pulmonary or pleural abnormality. No pneumothorax. ADDITIONAL FINDINGS: No significant additional findings. IMPRESSION: 1. No acute findings. Signer Name: Riaz Bai MD Signed: 12/28/2018 5:51 PM Workstation Name: [id number]
[2018-12-28 17:58] LABS: Chol/HDL Ratio 2.02 %
--- NOTE | 2018-12-28 18:56 | History and Physical Report ---
History of Present Illness Chief complaint: something is wrong with me History of present illness: 58 YO Female Senior Living Facility Resident at [facility] with ESRD on HD(M,W,F), Anemia, DM, Debility, HTN, GERD, Dementia presents to ED for evaluation. Pt provides minimal history. Detailed patient history provided by son who is at bedside during exam and interview. Pt was taken to dialysis center for routine dialysis and was found to have slurred speech after dialysis. Pt has unknown last well time. EMS was notified, and upon arrival the patient was found to have a neurologic deficit. A code stroke was called ant the patient was transported to [facility]. Pt seen and evaluated in ED and found to have symptoms consistent with CVA. Pt is outside therapeutic window for TPA at time of my exam. Pt also found to have ESRD, Debility, Hypertensive Urgency. Pt admitted to telemetry and initiated on CVA protocol. Prior admission on 11/29/18 reviewed. Nephrology consulted in ED for dialysis. Pt has positive gag reflex, and in able to protect her airway. Past History Past Medical History: anemia, ESRD, GERD, hypertension, other (Debility, Dementia) Past Surgical History: Other (Right Eye surgery) Social history: . denies: smoking, alcohol abuse, prescription drug abuse Family history: hypertension Medications and Allergies Allergies Allergy/AdvReac Type Severity Reaction Status Date / Time No Known Allergies Allergy Unverified 06/22/16 20:11 Home Medications Medication Instructions Recorded Confirmed Last Taken Type Losartan [Cozaar] 25 mg PO QDAY 11/29/18 11/29/18 Unknown History Metoclopramide HCl [Reglan TAB] 5 mg PO QID 11/29/18 11/29/18 Unknown History Metoprolol Succinate 200 mg PO DAILY 11/29/18 11/29/18 Unknown History Valsartan [Diovan] 320 mg PO QDAY 11/29/18 11/29/18 Unknown History amLODIPine [Norvasc] 10 mg PO DAILY 11/29/18 11/29/18 Unknown History AtorvaSTATin [Lipitor] 10 mg PO QHS tablet 12/04/18 Unknown Rx Metoclopramide [Reglan TAB] 5 mg PO QID tablet 12/04/18 Unknown Rx Metoprolol Xl [Metoprolol 200 mg PO QDAY tablet 12/04/18 Unknown Rx SUCCINATE ER TAB] Minoxidil [Loniten] 2.5 mg PO BID tablet 12/04/18 Unknown Rx Ondansetron [Zofran ODT TAB] 4 mg PO Q8HR tab.rickdis 12/04/18 Unknown Rx Pantoprazole [Protonix TAB] 20 mg PO QDAY tablet. 12/04/18 Unknown Rx Sertraline [Zoloft] 50 mg PO QDAY tablet 12/04/18 Unknown Rx Sevelamer Carbonate [Renvela] 800 mg PO TIDWM tablet 12/04/18 Unknown Rx Valsartan [Diovan] 320 mg PO QDAY tablet 12/04/18 Unknown Rx amLODIPine [Norvasc] 10 mg PO DAILY tablet 12/04/18 Unknown Rx cloNIDine [Catapres] 0.1 mg PO Q4H PRN tablet 12/04/18 Unknown Rx hydrALAZINE [Apresoline TAB] 50 mg PO DAILY tablet 12/04/18 Unknown Rx Review of Systems ROS unobtainable: due to mental status Exam - Constitutional Vitals: Temp Pulse Resp BP Pulse Ox 97.8 F 63 16 176/73 100 12/28/18 17:13 12/28/18 17:13 12/28/18 17:13 12/28/18 17:13 12/28/18 17:13 General appearance: Present: mild distress, cachectic - EENT Eyes: Present: miosis ENT: poor dentition - Neck Neck: Present: supple, normal ROM - Respiratory Respiratory effort: normal Respiratory: bilateral: CTA - Cardiovascular Heart Sounds: Present: S1 & S2. Absent: rub, click - Extremities Extremities: pulses symmetrical, No edema Peripheral Pulses: within normal limits - Abdominal General gastrointestinal: Present: soft, non-tender, non-distended, normal bowel sounds Female genitourinary: Present: normal - Integumentary Integumentary: Present: clear, dry, clammy - Musculoskeletal Musculoskeletal: generalized weakness - Psychiatric Psychiatric: no intact judgment & insight, no memory intact - Neurologic Neurologic: CNII-XII intact, focal deficits, moves all extremities, no gait normal Results - Labs CBC & Chem 7: 12/28/18 17:10 12/28/18 17:10 Labs: Abnormal lab results 12/28/18 12/28/18 12/28/18 Range/Units 17:05 17:10 17:10 RDW 16.1 H (13.2-15.2) % [place] % (Auto) 9.8 H (0.0-7.3) % Carbon Dioxide 31 H (22-30) mmol/L BUN 25 H (7-17) mg/dL Creatinine 4.7 H (0.7-1.2) mg/dL Glucose 106 H (65-100) mg/dL POC Glucose 116 H (70-105) Troponin T 0.238 H* (0.00-0.029) ng/mL HDL Cholesterol 72 H (40-59) mg/dL Assessment and Plan - Patient Problems (1) CVA (cerebral vascular accident) Current Visit: Yes Status: Acute Qualifiers: Laterality of affected vessel: unspecified Plan to address problem: Stroke Protocol: Admit to telemetry, CT head, MRI Brain, MRA Brain, Echo, Carotid Doppler, PT/OT/Speech Therapy, Antiplatelet therapy, lipid panel, neurology consulted, (2) ESRD (end stage renal disease) Current Visit: Yes Status: Acute Plan to address problem: Nephrology consulted in ED, strict I/O, monitor uop q shift, avoid nephrotoxic agents. (3) HTN (hypertension) Current Visit: Yes Status: Acute Qualifiers: Hypertension type: essential hypertension Qualified Code(s): I10 - Essential (primary) hypertension Plan to address problem: monitor bp q shift, permissive hypertension overnight, (4) GERD (gastroesophageal reflux disease) Current Visit: Yes Status: Acute Qualifiers: Esophagitis presence: without esophagitis Qualified Code(s): K21.9 - Gastro-esophageal reflux disease without esophagitis Plan to address problem: PPI therapy, supportive care. (5) Dementia Current Visit: Yes Status: Acute Qualifiers: Dementia type: vascular dementia Dementia behavioral disturbance: without behavioral disturbance Qualified Code(s): F01.50 - Vascular dementia without behavioral disturbance Plan to address problem: Supportive care, Ativan prn for agitation, aspiration precautions, (6) DVT prophylaxis Current Visit: Yes Status: Acute Plan to address problem: SCD to BLE while in bed, prophylactic heparin.
[2018-12-28] MEDS ORDERED: DULCOLAX PR PRN (18:58)
[2018-12-28] MEDS ORDERED: REGLAN PO PRN (18:58)
[2018-12-28] MEDS ORDERED: MILK OF MAGNESIA PO PRN (18:58)
[2018-12-28] MEDS ORDERED: ZOFRAN IV PRN (18:58)
[2018-12-28] MEDS ORDERED: TYLENOL PO PRN (18:58)
[2018-12-28] MEDS ORDERED: PROVENTIL IH PRN (18:58)
[2018-12-28] MEDS ORDERED: PHENERGAN PR PRN (18:58)
[2018-12-28] MEDS: HEPARIN SUB-Q SCH (21:28)
[2018-12-28] MEDS: SODIUM CHLORIDE FLUSH SYRINGE 10 ML IV PRN (21:28)
--- NOTE | 2018-12-29 09:16 | Consultation ---
History of Present Illness - Reason for Consult Consult date: 12/29/18 end stage renal disease - History of Present Illness The patient is a 58 YO AAF who is known to our service with history significant for DM type 2, HTN, Diabetic Retinopathy, CVA and ESRD on hemodialysis (MWF) who presented to [facility] ED from [facility] with c/o slurred speech. Patient was not able to provide any history and there was no family member at the bedside. Pt was taken to dialysis center yesterday and was found to have slurred speech. Per dialysis staff she did not receive dialysis yesterday. A code stroke was called and admitted with suspected CVA. Nephrology was consulted for further evaluation. Past History Past Medical History: anemia, ESRD, GERD, hypertension, other (Debility, Dementia) Past Surgical History: Other (Right Eye surgery) Social history: . denies: smoking, alcohol abuse, prescription drug abuse Family history: hypertension Medications and Allergies Allergies Allergy/AdvReac Type Severity Reaction Status Date / Time No Known Allergies Allergy Unverified 06/22/16 20:11 Home Medications Medication Instructions Recorded Confirmed Last Taken Type Losartan [Cozaar] 25 mg PO QDAY 11/29/18 11/29/18 Unknown History Metoclopramide HCl [Reglan TAB] 5 mg PO QID 11/29/18 11/29/18 Unknown History Metoprolol Succinate 200 mg PO DAILY 11/29/18 11/29/18 Unknown History Valsartan [Diovan] 320 mg PO QDAY 11/29/18 11/29/18 Unknown History amLODIPine [Norvasc] 10 mg PO DAILY 11/29/18 11/29/18 Unknown History AtorvaSTATin [Lipitor] 10 mg PO QHS tablet 12/04/18 Unknown Rx Metoclopramide [Reglan TAB] 5 mg PO QID tablet 12/04/18 Unknown Rx Metoprolol Xl [Metoprolol 200 mg PO QDAY tablet 12/04/18 Unknown Rx SUCCINATE ER TAB] Minoxidil [Loniten] 2.5 mg PO BID tablet 12/04/18 Unknown Rx Ondansetron [Zofran ODT TAB] 4 mg PO Q8HR tab.rapdis 12/04/18 Unknown Rx Pantoprazole [Protonix TAB] 20 mg PO QDAY tablet. 12/04/18 Unknown Rx Sertraline [Zoloft] 50 mg PO QDAY tablet 12/04/18 Unknown Rx Sevelamer Carbonate [Renvela] 800 mg PO TIDWM tablet 12/04/18 Unknown Rx Valsartan [Diovan] 320 mg PO QDAY tablet 12/04/18 Unknown Rx amLODIPine [Norvasc] 10 mg PO DAILY tablet 12/04/18 Unknown Rx cloNIDine [Catapres] 0.1 mg PO Q4H PRN tablet 12/04/18 Unknown Rx hydrALAZINE [Apresoline TAB] 50 mg PO DAILY tablet 12/04/18 Unknown Rx Active Meds: Active Medications Acetaminophen (Tylenol) 650 mg PO Q4H PRN PRN Reason: Pain, Mild (1-3) Albuterol (Proventil) 2.5 mg IH Q3HRT PRN PRN Reason: Shortness Of Breath Atorvastatin Calcium (Lipitor) 40 mg PO QHS [facility] Last Admin: 12/28/18 21:28 Dose: 40 mg Documented by: Bisacodyl (Dulcolax) 10 mg [place] QDAY PRN PRN Reason: Constipation Heparin Sodium (Porcine) (Heparin) 5,000 unit SUB-Q Q12HR [facility] Last Admin: 12/28/18 21:28 Dose: 5,000 unit Documented by: Magnesium Hydroxide (Milk Of Magnesia) 30 ml PO Q4H PRN PRN Reason: Constipation Metoclopramide HCl (Reglan) 10 mg PO Q6H PRN PRN Reason: Nausea And Vomiting Ondansetron HCl (Zofran) 4 mg IV Q8H PRN PRN Reason: Nausea And Vomiting Promethazine HCl (Phenergan) 25 mg [place] Q6H PRN PRN Reason: Nausea And Vomiting Sodium Chloride (Sodium Chloride Flush Syringe 10 Ml) 10 ml IV PRN PRN PRN Reason: LINE FLUSH Last Admin: 12/28/18 21:28 Dose: 10 ml Documented by: Review of Systems ROS unobtainable: due to mental status Exam - Vital Signs Vital signs: Vital Signs Temp Pulse Resp BP Pulse Ox 97.8 F 63 16 176/73 100 12/28/18 17:13 12/28/18 17:13 12/28/18 17:13 12/28/18 17:13 12/28/18 17:13 - General Appearance General appearance: well-developed, appears stated age, other (no distress) EENT: ATNC, other (R eye sclerotic / absent) Neck: Present: neck supple, trachea midline Respiratory: Clear to Ascultation Heart: regular, S1S2, no murmurs Gastrointestinal: Present: normoactive bowel sounds. Absent: tenderness, distended Integumentary: no rash, warm and dry Neurologic: confused, disoriented, other (L UE weakness / contractures noted) Musculoskeletal: Present: other (L arm AVF, no edema) Results - Lab Results 12/28/18 17:10 12/28/18 17:10 Most recent lab results Calcium 9.1 mg/dL (8.4-10.2) 12/28/18 17:10 Assessment and Plan 1. ESRD: Patient is on maintenance hemodialysis three times a week, MWF schedule. She missed HD yesterday. Hemodialysis today, orders placed. 2. FEN: Monitor. 3. TIA: Seen by Neuro. 4. Diabetes mellitus. 5. Hypertension.
[2018-12-29] MEDS ORDERED: NACL 0.9% 100 ML IV PRN (10:03)
--- NOTE | 2018-12-29 11:36 | Progress Note ---
Assessment and Plan Assessment and plan: CVA. Continue stroke protocol. CT scan of the head negative. Follow-up MRI/MRA brain, echocardiogram, carotid Doppler. Neurology consultation pending. Continue secondary prevention with aspirin and statin ESRD. Nephrology following. Continue hemodialysis. Hypertension. Continue antihypertensive medications. Patient received permissive hypertension overnight. GERD. Continue PPI therapy. Alzheimer's dementia. Continue supportive care. History Interval history: No new issues overnight Hospitalist Physical - Constitutional Vitals: Temp Pulse Resp BP Pulse Ox 97.4 F L 60 14 160/67 100 12/29/18 09:30 12/29/18 09:30 12/29/18 09:30 12/29/18 09:30 12/29/18 09:30 General appearance: Present: no acute distress, cachectic - EENT Eyes: Present: PERRL, EOM intact ENT: hearing intact, clear oral mucosa, dentition normal - Neck Neck: Present: supple, normal ROM - Respiratory Respiratory effort: normal Respiratory: bilateral: CTA - Cardiovascular Rhythm: regular Heart Sounds: Present: S1 & S2. Absent: gallop, rub - Extremities Extremities: no ischemia, No edema, Full ROM - Abdominal General gastrointestinal: soft, non-tender, non-distended, normal bowel sounds - Integumentary Integumentary: Present: clear, warm, dry - Neurologic Neurologic: CNII-XII intact, moves all extremities Results - Labs CBC & Chem 7: 12/28/18 17:10 12/28/18 17:10 Labs: Laboratory Last Values WBC 4.7 K/mm3 (4.5-11.0) 12/28/18 17:10 RBC 4.14 M/mm3 (3.65-5.03) 12/28/18 17:10 Hgb 11.7 gm/dl (10.1-14.3) 12/28/18 17:10 Hct 36.9 % (30.3-42.9) 12/28/18 17:10 MCV 89 fl (79-97) 12/28/18 17:10 MCH 28 pg (28-32) 12/28/18 17:10 MCHC 32 % (30-34) 12/28/18 17:10 RDW 16.1 % (13.2-15.2) H 12/28/18 17:10 Plt Count 160 K/mm3 (140-440) 12/28/18 17:10 Lymph % (Auto) 34.6 % (13.4-35.0) 12/28/18 17:10 [place] % (Auto) 9.8 % (0.0-7.3) H 12/28/18 17:10 Eos % (Auto) 2.1 % (0.0-4.3) 12/28/18 17:10 Baso % (Auto) 1.0 % (0.0-1.8) 12/28/18 17:10 Lymph # 1.6 K/mm3 (1.2-5.4) 12/28/18 17:10 [place] # 0.5 K/mm3 (0.0-0.8) 12/28/18 17:10 Eos # 0.1 K/mm3 (0.0-0.4) 12/28/18 17:10 Baso # 0.0 K/mm3 (0.0-0.1) 12/28/18 17:10 Seg Neutrophils % 52.5 % (40.0-70.0) 12/28/18 17:10 Seg Neutrophils # 2.5 K/mm3 (1.8-7.7) 12/28/18 17:10 PT 13.2 Sec. (12.2-14.9) 12/28/18 17:10 INR 1.03 (0.87-1.13) 12/28/18 17:10 APTT 28.1 Sec. (24.2-36.6) 12/28/18 17:10 17.7 Sec. (15.1-19.6) 12/28/18 17:10 Sodium 141 mmol/L (137-145) 12/28/18 17:10 Potassium 3.9 mmol/L (3.6-5.0) 12/28/18 17:10 Chloride 98.0 mmol/L (98-107) 12/28/18 17:10 Carbon Dioxide 31 mmol/L (22-30) H 12/28/18 17:10 16 mmol/L 12/28/18 17:10 BUN 25 mg/dL (7-17) H 12/28/18 17:10 4.7 mg/dL (0.7-1.2) H 12/28/18 17:10 Estimated GFR 11 ml/min 12/28/18 17:10 5 % 12/28/18 17:10 Glucose 106 mg/dL (65-100) H 12/28/18 17:10 POC Glucose 116 (70-105) H 12/28/18 17:05 Calcium 9.1 mg/dL (8.4-10.2) 12/28/18 17:10 0.238 ng/mL (0.00-0.029) H* 12/28/18 17:10 Triglycerides 65 mg/dL (2-149) 12/28/18 17:10 Cholesterol 146 mg/dL (50-199) 12/28/18 17:10 74 mg/dL (50-130) 12/28/18 17:10 72 mg/dL (40-59) H 12/28/18 17:10 2.02 % 12/28/18 17:10 Active Medications - Current Medications Current Medications: Generic Name Dose Route Start Last Admin Trade Name Freq PRN Reason Stop Dose Admin Acetaminophen 650 mg 12/28/18 18:58 Tylenol PO Q4H PRN Pain, Mild (1-3) Albuterol 2.5 mg 12/28/18 18:58 Proventil IH Q3HRT PRN Shortness Of Breath Atorvastatin Calcium 40 mg 12/28/18 22:00 12/28/18 21:28 Lipitor PO 40 mg QHS SALTY Administration Bisacodyl 10 mg 12/28/18 18:58 Dulcolax NM QDAY PRN Constipation Heparin Sodium (Porcine) 5,000 unit 12/28/18 22:00 12/28/18 21:28 Heparin SUB-Q 5,000 unit Q12HR SALTY Administration Sodium Chloride 100 mls @ 999 mls/hr 12/29/18 10:03 Nacl 0.9% IV PARMJIT PRN Hypotension Magnesium Hydroxide 30 ml 12/28/18 18:58 Milk Of Magnesia PO Q4H PRN Constipation Metoclopramide HCl 10 mg 12/28/18 18:58 Reglan PO Q6H PRN Nausea And Vomiting Ondansetron HCl 4 mg 12/28/18 18:58 Zofran IV Q8H PRN Nausea And Vomiting Promethazine HCl 25 mg 12/28/18 18:58 Phenergan NM Q6H PRN Nausea And Vomiting Sodium Chloride 10 ml 12/28/18 18:58 12/28/18 21:28 Sodium Chloride Flush Syringe 10 Ml IV 10 ml PRN PRN Administration LINE FLUSH
--- NOTE | 2018-12-29 14:48 | Consultation ---
History of Present Illness Consult date: 12/29/18 Reason for Consult: Possible Stroke Chief complaint: Possible Stroke History of present illness: Patient is a 58-year-old woman with a history of diabetes mellitus, hyperlipidemia, history of stroke with residual left upper extremity weakness, history of dementia, GERD, anemia, hypertension, end-stage renal disease on hemodialysis. The patient was reportedly at dialysis yesterday, and was noted to have slurred speech by the staff there. Therefore, hemodialysis was not completed yesterday, the patient was brought to the emergency room. The last known normal the patient was unable to be established yesterday while in the emergency room, therefore the patient was not felt to be a TPA candidate. Currently, the patient states that she feels her speech is back to baseline. Past History Past Medical History: anemia, ESRD, GERD, hypertension, other (Debility, Dementia) Past Surgical History: Other (Right Eye surgery) Social history: . denies: smoking, alcohol abuse, prescription drug abuse Family history: hypertension Medications and Allergies Allergies Allergy/AdvReac Type Severity Reaction Status Date / Time No Known Allergies Allergy Unverified 06/22/16 20:11 Home Medications Medication Instructions Recorded Confirmed Last Taken Type Losartan [Cozaar] 25 mg PO QDAY 11/29/18 11/29/18 Unknown History Metoclopramide HCl [Reglan TAB] 5 mg PO QID 11/29/18 11/29/18 Unknown History Metoprolol Succinate 200 mg PO DAILY 11/29/18 11/29/18 Unknown History Valsartan [Diovan] 320 mg PO QDAY 11/29/18 11/29/18 Unknown History amLODIPine [Norvasc] 10 mg PO DAILY 11/29/18 11/29/18 Unknown History AtorvaSTATin [Lipitor] 10 mg PO QHS tablet 12/04/18 Unknown Rx Metoclopramide [Reglan TAB] 5 mg PO QID tablet 12/04/18 Unknown Rx Metoprolol Xl [Metoprolol 200 mg PO QDAY tablet 12/04/18 Unknown Rx SUCCINATE ER TAB] Minoxidil [Loniten] 2.5 mg PO BID tablet 12/04/18 Unknown Rx Ondansetron [Zofran ODT TAB] 4 mg PO Q8HR tab.rapdis 12/04/18 Unknown Rx Pantoprazole [Protonix TAB] 20 mg PO QDAY tablet. 12/04/18 Unknown Rx Sertraline [Zoloft] 50 mg PO QDAY tablet 12/04/18 Unknown Rx Sevelamer Carbonate [Renvela] 800 mg PO TIDWM tablet 12/04/18 Unknown Rx Valsartan [Diovan] 320 mg PO QDAY tablet 12/04/18 Unknown Rx amLODIPine [Norvasc] 10 mg PO DAILY tablet 12/04/18 Unknown Rx cloNIDine [Catapres] 0.1 mg PO Q4H PRN tablet 12/04/18 Unknown Rx hydrALAZINE [Apresoline TAB] 50 mg PO DAILY tablet 12/04/18 Unknown Rx Active Meds: Active Medications Acetaminophen (Tylenol) 650 mg PO Q4H PRN PRN Reason: Pain, Mild (1-3) Albuterol (Proventil) 2.5 mg IH Q3HRT PRN PRN Reason: Shortness Of Breath Aspirin (Baby Aspirin) 81 mg PO QDAY SALTY Atorvastatin Calcium (Lipitor) 40 mg PO QHS SALTY Last Admin: 12/28/18 21:28 Dose: 40 mg Documented by: Bisacodyl (Dulcolax) 10 mg AL QDAY PRN PRN Reason: Constipation Heparin Sodium (Porcine) (Heparin) 5,000 unit SUB-Q Q12HR SALTY Last Admin: 12/28/18 21:28 Dose: 5,000 unit Documented by: Sodium Chloride (Nacl 0.9%) 100 mls @ 999 mls/hr IV PARMJIT PRN PRN Reason: Hypotension Magnesium Hydroxide (Milk Of Magnesia) 30 ml PO Q4H PRN PRN Reason: Constipation Metoclopramide HCl (Reglan) 10 mg PO Q6H PRN PRN Reason: Nausea And Vomiting Ondansetron HCl (Zofran) 4 mg IV Q8H PRN PRN Reason: Nausea And Vomiting Promethazine HCl (Phenergan) 25 mg AL Q6H PRN PRN Reason: Nausea And Vomiting Sodium Chloride (Sodium Chloride Flush Syringe 10 Ml) 10 ml IV PRN PRN PRN Reason: LINE FLUSH Last Admin: 12/28/18 21:28 Dose: 10 ml Documented by: Review of Systems All systems: negative Neurological: change in speech Physical Examination - Vital Signs Vital Signs: Vital Signs Temp Pulse Resp BP Pulse Ox 97.8 F 63 16 176/73 100 12/28/18 17:13 12/28/18 17:13 12/28/18 17:13 12/28/18 17:13 12/28/18 17:13 - Physical Exam Narrative exam: Total status: The patient is currently awake, alert, oriented only to name, follows 2 step commands. She is otherwise conversant. - Constitutional General appearance: comfortable - EENT EENT: Present: ATNC, PERRL, mucous membranes moist, hearing intact, other (right eye blind) - Respiratory Respiratory: Present: lungs clear, normal breath sounds - Cardiovascular Cardiovascular: Present: regular rate, normal S1, normal S2 Extremities: Present: no peripheral edema bilatateraly, no clubbing, cyanosis - Gastrointestinal Gastrointestinal: Present: normoactive bowel sounds, soft, non-tender - Integumentary Integumentary: Present: normal - Neurologic Cranial nerve examination: PERRL, EOMI, V1/V2/V3 grossly intact, face symmetric, tongue midline, other (right eye blind) Sensorimotor examination: other (recent has baseline of left arm increased tone and spasticity) Motor examination - right side: 4/5: biceps, triceps, wrist flexion, wrist extension, career services representative, hip flexors, knee extensors, dorsiflexion, toe extension (EHL), plantarflexion Motor examination - left side: 1/5: biceps, triceps, wrist flexion, wrist extension, career services representative, 4/5: hip flexors, knee extensors, dorsiflexion, toe extension (EHL), plantarflexion Detailed sensory examination: intact, light touch Reflexes: 2+: ankle, knee, 3+: bicep (3+ on left, 2+ on Rt), tricep (3+ on left, 2+ on Rt) - Musculoskeletal Musculoskeletal: Present: no pain, other (decreased range of motion of left upper extremity due to baseline spasticity) - Psychiatric Psychiatric: Present: mood/affect appropriate - Assessment Assessment Interval: Baseline - Level of Consciousness 1a. Level of Consciousness: alert/keenly responsive - LOC Questions 1b. LOC Questions: answers 1 question correctly - LOC Command 1c. LOC Commands: performs tasks correctly - Best Gaze 2. Best Gaze: normal - Visual 3. Visual: no visual loss - Facial Palsy 4. Facial Palsy: normal symmetrical movement - Motor Arm 5a. Motor Arm Left: no movement 5b. Motor Arm Right: no drift - Motor Leg 6a. Motor Leg Left: no drift 6b. Motor Leg Right: no drift - Limb Ataxia 7. Limb Ataxia: absent - Sensory 8. Sensory: normal - Best Language 9. Best Language: no aphasia - Dysarthria 10. Dysarthria: normal - Extinction and Inattention 11. Extinction/Inattention: no abnormality - Scoring Total Score: 5 Stroke Severity: Moderate Stroke Results - Laboratory Findings CBC and BMP: 12/28/18 17:10 12/28/18 17:10 Abnormal Lab Findings: Abnormal Labs 12/28/18 12/28/18 12/28/18 17:05 17:10 17:10 RDW 16.1 H Holt % (Auto) 9.8 H Carbon Dioxide 31 H BUN 25 H Creatinine 4.7 H Glucose 106 H POC Glucose 116 H Troponin T 0.238 H* HDL Cholesterol 72 H Assessment and Plan Patient is a 58-year-old woman with a history of diabetes mellitus, hyperlipidemia, history of stroke with residual left upper extremity weakness, history of dementia, GERD, anemia, hypertension, end-stage renal disease on hemodialysis, who presents with an episode of slurred speech during dialysis. Patient reportedly has now returned to baseline. The patient's clinical findings, it is possible that she has had a TIA. Alternatively, the patient may have had a brief change in mentation due to metabolic abnormalities, given her underlying end-stage renal disease. Plan: 1. TIA: Check MRI brain. Echocardiogram to be done LDL 74. Check urinalysis. -Recommend for hemodialysis sessions to be done slower, in order to decrease chances of abrupt changes in electrolytes. Secondary prevention: Start patient on aspirin 81 mg daily. Continue patient on statin. Telemetry monitoring while in house. Physical therapy and occupational therapy for evaluation of mobility. Speech therapy consultation for swallow evaluation. DVT prophylaxis: Recommend Lovenox. #2 hypertension: Recommend blood pressure goal of normotension, given that event occurred approximately 24 hours ago, and patient has not returned to baseline. We'll continue to monitor patient. Pierce Alvarenga MD Neurology
[2018-12-29] MEDS ORDERED: NACL 0.9 (PRIMING MACHINE ONLY DIALYSIS) MC ONE (14:59)
[2018-12-29] MEDS: HEPARIN SUB-Q SCH ×2 (15:00→21:27)
[2018-12-29] MEDS: SODIUM CHLORIDE FLUSH SYRINGE 10 ML IV PRN (21:31)
--- NOTE | 2018-12-30 11:43 | Progress Note ---
Assessment and Plan 1. ESRD: Patient is on maintenance hemodialysis three times a week, MWF schedule. Hemodialysis today, orders placed. 2. FEN: Monitor. 3. TIA: Seen by Neuro. 4. Diabetes mellitus. 5. Hypertension. Subjective Date of service: 12/30/18 Interval history: Patient was seen and examined at the bedside. Objective - Vital Signs Vital signs: Vital Signs - 12hr 12/30/18 12/30/18 12/30/18 01:56 03:17 08:42 Temperature 98.3 F 98.5 F Pulse Rate 67 74 66 Respiratory 18 20 Rate Blood Pressure 173/75 163/75 O2 Sat by Pulse 96 98 Oximetry - General Appearance General appearance: well-developed, appears stated age, other (no distress) EENT: ATNC, other (R eye sclerotic) Neck: supple Respiratory: Present: Clear to Ascultation Cardiology: regular, S1S2, no murmurs Gastrointestinal: normoactive bowel sounds, no tenderness, no distended Integumentary: no rash, warm and dry Neurologic: other (weakness of L UE) Musculoskeletal: other (L arm AVF) - Lab 12/28/18 17:10 12/28/18 17:10 Most recent lab results Calcium 9.1 mg/dL (8.4-10.2) 12/28/18 17:10 Medications & Allergies - Medications Allergies/Adverse Reactions: Allergies No Known Allergies Allergy (Unverified 06/22/16 20:11) Home Medications: Home Medications Medication Instructions Recorded Confirmed Last Taken Type Losartan [Cozaar] 25 mg PO QDAY 11/29/18 11/29/18 Unknown History Metoclopramide HCl [Reglan TAB] 5 mg PO QID 11/29/18 11/29/18 Unknown History Metoprolol Succinate 200 mg PO DAILY 11/29/18 11/29/18 Unknown History Valsartan [Diovan] 320 mg PO QDAY 11/29/18 11/29/18 Unknown History amLODIPine [Norvasc] 10 mg PO DAILY 11/29/18 11/29/18 Unknown History Metoclopramide [Reglan TAB] 5 mg PO QID tablet 12/04/18 Unknown Rx Metoprolol Xl [Metoprolol 200 mg PO QDAY tablet 12/04/18 Unknown Rx SUCCINATE ER TAB] Minoxidil [Loniten] 2.5 mg PO BID tablet 12/04/18 Unknown Rx Ondansetron [Zofran ODT TAB] 4 mg PO Q8HR tab.rapdis 12/04/18 Unknown Rx Pantoprazole [Protonix TAB] 20 mg PO QDAY tablet. 12/04/18 Unknown Rx Sertraline [Zoloft] 50 mg PO QDAY tablet 12/04/18 Unknown Rx Sevelamer Carbonate [Renvela] 800 mg PO TIDWM tablet 12/04/18 Unknown Rx Valsartan [Diovan] 320 mg PO QDAY tablet 12/04/18 Unknown Rx amLODIPine [Norvasc] 10 mg PO DAILY tablet 12/04/18 Unknown Rx cloNIDine [Catapres] 0.1 mg PO Q4H PRN tablet 12/04/18 Unknown Rx hydrALAZINE [Apresoline TAB] 50 mg PO DAILY tablet 12/04/18 Unknown Rx Aspirin [Aspirin BABY CHEW TAB] 81 mg PO QDAY tab.chew 12/30/18 Unknown Rx AtorvaSTATin [Lipitor] 40 mg PO QHS tablet 12/30/18 Unknown Rx Bisacodyl [Dulcolax suppos] 10 mg CO QDAY PRN supp.rect 12/30/18 Unknown Rx Magnesium Hydroxide [Milk of 30 ml PO Q4H PRN oral.liqd 12/30/18 Unknown Rx Magnesia] Metoclopramide [Reglan TAB] 10 mg PO Q6H PRN tablet 12/30/18 Unknown Rx Promethazine [Phenergan SUPPOS] 25 mg CO Q6H PRN supp.rect 12/30/18 Unknown Rx Active Medications: Generic Name Dose Route Start Last Admin Trade Name Freq PRN Reason Stop Dose Admin Acetaminophen 650 mg 12/28/18 18:58 Tylenol PO Q4H PRN Pain, Mild (1-3) Albuterol 2.5 mg 12/28/18 18:58 Proventil IH Q3HRT PRN Shortness Of Breath Aspirin 81 mg 12/30/18 10:00 Baby Aspirin PO QDAY SALTY Atorvastatin Calcium 40 mg 12/28/18 22:00 12/29/18 21:27 Lipitor PO 40 mg QHS SALTY Administration Bisacodyl 10 mg 12/28/18 18:58 Dulcolax CO QDAY PRN Constipation Heparin Sodium (Porcine) 5,000 unit 12/28/18 22:00 12/29/18 21:27 Heparin SUB-Q 5,000 unit Q12HR SALTY Administration Sodium Chloride 100 mls @ 999 mls/hr 12/29/18 10:03 Nacl 0.9% IV PARMJIT PRN Hypotension Magnesium Hydroxide 30 ml 12/28/18 18:58 Milk Of Magnesia PO Q4H PRN Constipation Metoclopramide HCl 10 mg 12/28/18 18:58 Reglan PO Q6H PRN Nausea And Vomiting Ondansetron HCl 4 mg 12/28/18 18:58 Zofran IV Q8H PRN Nausea And Vomiting Promethazine HCl 25 mg 12/28/18 18:58 Phenergan CO Q6H PRN Nausea And Vomiting Sodium Chloride 10 ml 12/28/18 18:58 12/29/18 21:31 Sodium Chloride Flush Syringe 10 Ml IV 10 ml PRN PRN Administration LINE FLUSH
[2018-12-30] MEDS ORDERED: HEPARIN 10,000 UNITS/10 ML IV PRN ×2 (12:20)
[2018-12-30] MEDS ORDERED: NACL 0.9% 100 ML IV PRN (12:20)
[2018-12-30] MEDS: HEPARIN SUB-Q SCH ×2 (12:25→21:50)
[2018-12-30] MEDS: BABY ASPIRIN PO SCH (12:25)
--- NOTE | 2018-12-30 14:14 | Discharge Summary ---
Providers - Providers Date of Admission: 12/28/18 18:58 Date of discharge: 12/30/18 Attending physician: ITZ ALANIZ 12/28/18 18:12 Consult to Physician [CONS] Stat Comment: Consulting Provider: RICARDO CRUZ Physician Instructions: Reason For Exam: ESRD 12/28/18 18:58 Occupational Therapy Evaluate and Treat [CONS] Routine Comment: Reason For Exam: Neuro deficits Physical Therapy Evaluation and Treat [CONS] Routine Comment: Reason For Exam: Neuro deficits 12/28/18 18:59 Speech Therapy Evaluation and Treat [CONS] Routine Reason For Exam: swallow eval 12/29/18 11:35 Consult to Physician [CONS] Routine Comment: Consulting Provider: COLBY URBINA Physician Instructions: Reason For Exam: cva [facility] care [facility]: [facility] Hospitalization Reason for admission: cva Condition: Stable Hospital course: Patient is a 58-year-old woman with a history of diabetes mellitus, hyperlipidemia, history of stroke with residual left upper extremity weakness, history of dementia, GERD, anemia, hypertension, end-stage renal disease on hemodialysis. The patient was reportedly at dialysis [employer], and was noted to have slurred speech by the staff there. Therefore, hemodialysis was not completed the day [employer], the patient was brought to the emergency room. The last known normal the patient was unable to be established [employer] while in the emergency room, therefore the patient was not felt to be a TPA candidate. Currently, the patient states that she feels her speech is back to baseline. The patient was admitted with diagnosis of TIA. Patient was seen by neurology in consultation who recommended echocardiogram and MRI. Echocardiogram showed no patent foramen ovale. MRI is pending and if found to be negative patient will discharge back to [facility]. Physical therapy and speech therapy evaluated the patient and recommended discharge back to [place] with no needs. [place] discharge time 32 minutes. Disposition: [id number] SNF [facility] Time spent for discharge: 32 - Discharge Diagnoses (1) Dementia Status: Acute Qualifiers: Dementia type: vascular dementia Dementia behavioral disturbance: without behavioral disturbance Qualified Code(s): F01.50 - Vascular dementia without behavioral disturbance (2) ESRD (end stage renal disease) Status: Acute (3) GERD (gastroesophageal reflux disease) Status: Acute Qualifiers: Esophagitis presence: without esophagitis Qualified Code(s): K21.9 - Gastro-esophageal reflux disease without esophagitis (4) HTN (hypertension) Status: Acute Qualifiers: Hypertension type: essential hypertension Qualified Code(s): I10 - Essential (primary) hypertension (5) TIA (transient ischemic attack) Status: Acute (6) Anemia, chronic renal failure Status: Acute (7) DM type 2 (diabetes mellitus, type 2) Status: Acute (8) Debility Status: Acute (9) Hypertension Status: Acute Qualifiers: Hypertension type: essential hypertension Qualified Code(s): I10 - Essential (primary) hypertension Core Measure Documentation - Palliative Care Palliative Care/ Comfort Measures: Not Applicable - Core Measures Any of the following diagnoses?: stroke - Stroke Discharge Requirements Statin for LDL = or >70 mg/dl on DC: Yes Anticoag for atrial fib/atrial flutter: Not Applicable Antithrombotic for ischemic stroke: Yes Exam - Constitutional Vitals: Temp Pulse Resp BP Pulse Ox 98.5 F 66 20 163/75 98 12/30/18 08:42 12/30/18 08:42 12/30/18 08:42 12/30/18 08:42 12/30/18 08:42 General appearance: Present: no acute distress, well-nourished - EENT Eyes: Present: PERRL ENT: hearing intact, clear oral mucosa - Neck Neck: Present: supple, normal ROM - Respiratory Respiratory effort: normal Respiratory: bilateral: CTA - Cardiovascular Heart Sounds: Present: S1 & S2. Absent: rub, click - Extremities Extremities: pulses symmetrical, No edema Peripheral Pulses: within normal limits - Abdominal General gastrointestinal: Present: soft, non-tender, non-distended, normal bowel sounds Female genitourinary: Present: normal - Integumentary Integumentary: Present: clear, warm, dry - Musculoskeletal Musculoskeletal: gait normal, strength equal bilaterally - Psychiatric Psychiatric: appropriate mood/affect, intact judgment & insight - Neurologic Neurologic: CNII-XII intact, moves all extremities Plan Activity: advance as tolerated Weight Bearing Status: Weight Bear as Tolerated Diet: diabetic, renal Follow up with: ADA ANGULO MD [Primary Care Provider] - 3-5 Days COLBY URBINA MD [Staff Physician] - 7 Days RICARDO CRUZ MD [Staff Physician] - 7 Days
[2018-12-30] MEDS ORDERED: ATIVAN IV ONE (15:17)
[2018-12-30 15:46] LABS: Hepatitis B Surface Antigen Non-Reactive (Negative); Hepatitis C Virus Antibody Non-Reactive (NonReactive)
[2018-12-30] MEDS ORDERED: NACL 0.9 (PRIMING MACHINE ONLY DIALYSIS) MC ONE (18:54)
--- NOTE | 2018-12-30 18:54 | Magnetic Resonance Report ---
MRA neck without contrast Clinical history: Transient ischemic attack FINDINGS: 3-D [id number] MRA of the neck was performed. The motion significantly degrades image q uality. However, there is no clear MRA evidence of significant stenosis involving the carotid arterie s. The visualized vertebral arteries also demonstrate appropriate caliber without significant focal n arrowing. IMPRESSION: The motion degrades image quality. However, there is no clear MRA evidence of significant stenosis in volving visualized carotid or vertebral arteries. Signer Name: Kai Jimenez MD Signed: 12/30/2018 6:49 PM Workstation Name: [id number]
--- NOTE | 2018-12-30 19:39 | Magnetic Resonance Report ---
MRI BRAIN 12/30/2018 INDICATION / CLINICAL INFORMATION: stroke. TECHNIQUE: Multiplanar, multisequence MR images of the brain were obtained. COMPARISON: None available. FINDINGS: BRAIN / INTRACRANIAL CONTENTS: Unenhanced MR images of the brain demonstrate no evidence of acute int racranial abnormality. Ventricles and sulci are prominent in size, consistent with prominent diffuse cerebral atrophy. Exten sive chronic white matter T2 weighted hyperintensities are present throughout the cerebral hemispheri c white matter, brainstem, and cerebellum. There is no evidence of hemorrhage or mass. There are no abnormal extra-axial fluid collections. 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 CRANIOCERVICAL JUNCTION: No significant abnormality. VASCULAR FLOW-VOIDS: No significant abnormality. IMPRESSION: No acute abnormality. Pronounced cerebral atrophy and extensive chronic white matter signal change. Signer Name: Tony Andrew MD Signed: 12/30/2018 7:35 PM Workstation Name: [id number]
--- NOTE | 2018-12-30 19:40 | Magnetic Resonance Report ---
MRA HEAD 12/30/2018 INDICATION / CLINICAL INFORMATION: stroke. TECHNIQUE: Routine MRA of the head is performed. 3-D/MIP reformats postprocessed. COMPARISON: None available. FINDINGS: MRA HEAD: Intracranial internal carotid arteries: No significant abnormality. Anterior cerebral arteries: No significant abnormality. Middle cerebral arteries: No significant abnormality. Intracranial vertebral arteries: No significant abnormality. Basilar artery: No significant abnormality. Posterior cerebral arteries: No significant abnormality. IMPRESSION: No significant abnormality. Signer Name: Tony Andrew MD Signed: 12/30/2018 7:36 PM Workstation Name: [id number]
--- NOTE | 2018-12-30 22:57 | Progress Note ---
Assessment and Plan Patient is a 58-year-old woman with a history of diabetes mellitus, hyperlipidemia, history of stroke with residual left upper extremity weakness, history of dementia, GERD, anemia, hypertension, end-stage renal disease on hemodialysis, who presents with an episode of slurred speech during dialysis. Patient reportedly has now returned to baseline. The patient's clinical findings, it is possible that she has had a TIA. Alternatively, the patient may have had a brief change in mentation due to metabolic abnormalities, given her underlying end-stage renal disease. Plan: 1. TIA vs. metabolic encephalopathy: MRI brain did not reveal any evidence of acute abnormality. MRA head/neck unremarkable. Echocardiogram: EF 50-55%, bubble study negative, LA normal. LDL 74. Check urinalysis. -Recommend for hemodialysis sessions to be done slower, in order to decrease chances of abrupt changes in electrolytes. - Recommend for patient to have 30-day nurse tech or implantable loop recorder for long-term monitoring for a-fib, if no a-fib found on telemetry during this admission. Secondary prevention: Cont. patient on aspirin 81 mg daily. Continue patient on statin. Telemetry monitoring while in house. Physical therapy and occupational therapy for evaluation of mobility. Speech therapy consultation for swallow evaluation. DVT prophylaxis: Recommend Lovenox. #2 hypertension: Recommend blood pressure goal of normotension, given that event occurred approximately 24 hours ago, and patient has not returned to baseline. -Will sign off, as I am not covering the weekend. Recommend to consult neurologist that is covering tomorrow, as patient will require neurologic monitoring. Pierce Alvarenga MD Neurology Subjective Date of service: 12/30/18 Principal diagnosis: TIA Interval history: No acute events overnight. Objective - Exam Narrative Exam: Mental status: The patient is currently awake, alert, oriented only to name, follows 2 step commands. She is otherwise conversant. Gen: no distress, cooperative Neck: no JVD, masses, or bruits HEENT: atraumatic, sclera anicteric CV RRR Lung symmetric chest expansion Abd: soft, non-tender, non-distended Ext: no edema Neurological Examination: Mental status: Alert, oriented x 2 minus year, month, follows 1-step commands Language: Comprehension, repetition and naming intact CN: VF full in left eye, Rt. eye blind, EOMi in Lt. eye V1-3 equal to light touch No droop, mild dysarthria at baseline Uvula are midline Tongue midline Motor system: Muscle tone increased in LUE with hypertonicity. Strength: RUE: proximal: 4/5, distal: 4/5 LUE: proximal: 1/5, distal: 1/5 RLE: proximal: 4/5, distal: 4/5 LLE: proximal: 4/5, distal: 4/5 Reflexes: 3+ in Lt. biceps/brachioradialis/triceps/patellar/ankle, 2+ on Rt. Sensory: Grossly symmetric Coord: No tremor, FTN intact on Rt. Gait: deferred - Vital Sign Vital Signs - 12hr 12/30/18 12/30/18 12/30/18 13:30 13:45 14:00 Temperature 98.5 F Pulse Rate 66 64 64 Respiratory 18 Rate Blood Pressure 163/68 190/86 183/82 Blood Pressure [Left] O2 Sat by Pulse Oximetry 12/30/18 12/30/18 12/30/18 14:15 14:30 14:45 Temperature Pulse Rate 65 66 71 Respiratory Rate Blood Pressure 162/70 157/72 156/85 Blood Pressure [Left] O2 Sat by Pulse Oximetry 12/30/18 12/30/18 12/30/18 15:00 15:15 15:30 Temperature Pulse Rate 67 66 67 Respiratory Rate Blood Pressure 162/80 148/70 153/70 Blood Pressure [Left] O2 Sat by Pulse Oximetry 12/30/18 12/30/18 12/30/18 15:45 16:00 16:15 Temperature Pulse Rate 66 70 69 Respiratory Rate Blood Pressure 142/66 141/76 154/78 Blood Pressure [Left] O2 Sat by Pulse Oximetry 12/30/18 12/30/18 12/30/18 16:30 17:00 20:00 Temperature 98.5 F 98.4 F Pulse Rate 71 70 63 Respiratory 18 18 Rate Blood Pressure 158/77 160/78 Blood Pressure 149/68 [Left] O2 Sat by Pulse 96 Oximetry - Laboratory Findings CBC and BMP: 12/28/18 17:10 12/28/18 17:10 Abnormal Lab Findings: Abnormal Labs 12/28/18 12/28/18 12/28/18 17:05 17:10 17:10 RDW 16.1 H [place] % (Auto) 9.8 H Carbon Dioxide 31 H BUN 25 H Creatinine 4.7 H Glucose 106 H POC Glucose 116 H Troponin T 0.238 H* HDL Cholesterol 72 H
[2018-12-31 09:02] VITALS: BP 160/74
--- NOTE | 2018-12-31 09:56 | Progress Note ---
Assessment and Plan Assessment and plan: CVA. Continue stroke protocol. CT scan of the head negative. Follow-up MRI/MRA brain, echocardiogram, carotid Doppler. Neurology consultation pending. Continue secondary prevention with aspirin and statin ESRD. Nephrology following. Continue hemodialysis. Hypertension. Continue antihypertensive medications. Patient received permissive hypertension overnight. GERD. Continue PPI therapy. Alzheimer's dementia. Continue supportive care. - Patient Problems (1) Dementia Current Visit: Yes Status: Acute Qualifiers: Dementia type: vascular dementia Dementia behavioral disturbance: without behavioral disturbance Qualified Code(s): F01.50 - Vascular dementia without behavioral disturbance (2) ESRD (end stage renal disease) Current Visit: Yes Status: Acute (3) GERD (gastroesophageal reflux disease) Current Visit: Yes Status: Acute Qualifiers: Esophagitis presence: without esophagitis Qualified Code(s): K21.9 - Gastro-esophageal reflux disease without esophagitis (4) HTN (hypertension) Current Visit: Yes Status: Acute Qualifiers: Hypertension type: essential hypertension Qualified Code(s): I10 - Essential (primary) hypertension (5) TIA (transient ischemic attack) Current Visit: Yes Status: Acute (6) Anemia, chronic renal failure Current Visit: No Status: Acute (7) DM type 2 (diabetes mellitus, type 2) Current Visit: No Status: Acute (8) Debility Current Visit: No Status: Acute (9) Hypertension Current Visit: No Status: Acute Qualifiers: Hypertension type: essential hypertension Qualified Code(s): I10 - Essential (primary) hypertension History Interval history: No new issues overnight Hospitalist Physical - Constitutional Vitals: Temp Pulse Resp BP Pulse Ox 98.3 F 66 12 160/74 94 12/31/18 08:15 12/31/18 09:50 12/31/18 08:15 12/31/18 08:15 12/31/18 08:15 General appearance: Present: no acute distress, well-nourished - EENT Eyes: Present: PERRL, EOM intact ENT: hearing intact, clear oral mucosa, dentition normal - Neck Neck: Present: supple, normal ROM - Respiratory Respiratory effort: normal Respiratory: bilateral: CTA - Cardiovascular Rhythm: regular Heart Sounds: Present: S1 & S2. Absent: gallop, rub - Extremities Extremities: no ischemia, No edema, Full ROM - Abdominal General gastrointestinal: soft, non-tender, non-distended, normal bowel sounds - Integumentary Integumentary: Present: clear, warm, dry - Neurologic Neurologic: CNII-XII intact, moves all extremities Results - Labs CBC & Chem 7: 12/28/18 17:10 12/28/18 17:10 Labs: Laboratory Last Values WBC 4.7 K/mm3 (4.5-11.0) 12/28/18 17:10 RBC 4.14 M/mm3 (3.65-5.03) 12/28/18 17:10 Hgb 11.7 gm/dl (10.1-14.3) 12/28/18 17:10 Hct 36.9 % (30.3-42.9) 12/28/18 17:10 MCV 89 fl (79-97) 12/28/18 17:10 MCH 28 pg (28-32) 12/28/18 17:10 MCHC 32 % (30-34) 12/28/18 17:10 RDW 16.1 % (13.2-15.2) H 12/28/18 17:10 Plt Count 160 K/mm3 (140-440) 12/28/18 17:10 Lymph % (Auto) 34.6 % (13.4-35.0) 12/28/18 17:10 [place] % (Auto) 9.8 % (0.0-7.3) H 12/28/18 17:10 Eos % (Auto) 2.1 % (0.0-4.3) 12/28/18 17:10 Baso % (Auto) 1.0 % (0.0-1.8) 12/28/18 17:10 Lymph # 1.6 K/mm3 (1.2-5.4) 12/28/18 17:10 [place] # 0.5 K/mm3 (0.0-0.8) 12/28/18 17:10 Eos # 0.1 K/mm3 (0.0-0.4) 12/28/18 17:10 Baso # 0.0 K/mm3 (0.0-0.1) 12/28/18 17:10 Seg Neutrophils % 52.5 % (40.0-70.0) 12/28/18 17:10 Seg Neutrophils # 2.5 K/mm3 (1.8-7.7) 12/28/18 17:10 PT 13.2 Sec. (12.2-14.9) 12/28/18 17:10 INR 1.03 (0.87-1.13) 12/28/18 17:10 APTT 28.1 Sec. (24.2-36.6) 12/28/18 17:10 17.7 Sec. (15.1-19.6) 12/28/18 17:10 Sodium 141 mmol/L (137-145) 12/28/18 17:10 Potassium 3.9 mmol/L (3.6-5.0) 12/28/18 17:10 Chloride 98.0 mmol/L (98-107) 12/28/18 17:10 Carbon Dioxide 31 mmol/L (22-30) H 12/28/18 17:10 16 mmol/L 12/28/18 17:10 BUN 25 mg/dL (7-17) H 12/28/18 17:10 4.7 mg/dL (0.7-1.2) H 12/28/18 17:10 Estimated GFR 11 ml/min 12/28/18 17:10 5 % 12/28/18 17:10 Glucose 106 mg/dL (65-100) H 12/28/18 17:10 POC Glucose 116 (70-105) H 12/28/18 17:05 4.8 % (4-6) 12/29/18 16:04 Calcium 9.1 mg/dL (8.4-10.2) 12/28/18 17:10 0.238 ng/mL (0.00-0.029) H* 12/28/18 17:10 Triglycerides 65 mg/dL (2-149) 12/28/18 17:10 Cholesterol 146 mg/dL (50-199) 12/28/18 17:10 74 mg/dL (50-130) 12/28/18 17:10 72 mg/dL (40-59) H 12/28/18 17:10 2.02 % 12/28/18 17:10 Hepatitis A IgM Ab Non-reactive (NonReactive) 12/30/18 15:04 Hep Bs Antigen Non-reactive (Negative) 12/30/18 15:04 Hep B Core IgM Ab Non-reactive (NonReactive) 12/30/18 15:04 Non-reactive (NonReactive) 12/30/18 15:04 Active Medications - Current Medications Current Medications: Generic Name Dose Route Start Last Admin Trade Name Freq PRN Reason Stop Dose Admin Acetaminophen 650 mg 12/28/18 18:58 Tylenol PO Q4H PRN Pain, Mild (1-3) Albuterol 2.5 mg 12/28/18 18:58 Proventil IH Q3HRT PRN Shortness Of Breath Aspirin 81 mg 12/30/18 10:00 12/30/18 12:25 Baby Aspirin PO 81 mg QDAY SALTY Administration Atorvastatin Calcium 40 mg 12/28/18 22:00 12/30/18 21:50 Lipitor PO 40 mg QHS SALTY Administration Bisacodyl 10 mg 12/28/18 18:58 Dulcolax MT QDAY PRN Constipation Heparin Sodium (Porcine) 5,000 unit 12/28/18 22:00 12/30/18 21:50 Heparin SUB-Q 5,000 unit Q12HR SALTY Administration Heparin Sodium (Porcine) 2,000 unit 12/30/18 12:20 Heparin 10,000 Units/10 Ml IV PARMJIT PRN hemodialysis Heparin Sodium (Porcine) 1,000 unit 12/30/18 12:20 Heparin 10,000 Units/10 Ml IV PARMJIT PRN hemodialysis Sodium Chloride 100 mls @ 999 mls/hr 12/29/18 10:03 Nacl 0.9% IV PARMJIT PRN Hypotension Sodium Chloride 100 mls @ 999 mls/hr 12/30/18 12:20 Nacl 0.9% IV PARMJIT PRN Hypotension Magnesium Hydroxide 30 ml 12/28/18 18:58 Milk Of Magnesia PO Q4H PRN Constipation Metoclopramide HCl 10 mg 12/28/18 18:58 Reglan PO Q6H PRN Nausea And Vomiting Ondansetron HCl 4 mg 12/28/18 18:58 Zofran IV Q8H PRN Nausea And Vomiting Promethazine HCl 25 mg 12/28/18 18:58 Phenergan MT Q6H PRN Nausea And Vomiting Sodium Chloride 10 ml 12/28/18 18:58 12/29/18 21:31 Sodium Chloride Flush Syringe 10 Ml IV 10 ml PRN PRN Administration LINE FLUSH Nutrition/Malnutrition Assess - Dietary Evaluation Nutrition/Malnutrition Findings: Nutrition Notes Start: 12/29/18 15:59 Freq: Status: Active Protocol: Document 12/29/18 15:59 RM (Rec: 12/29/18 16:04 RM [email or web address]) Nutrition Notes Need for Assessment generated from: Low BMI Initial or Follow up Assessment Current Diagnosis Diabetes,Hypertension Other Pertinent Diagnosis Debility, GERD, Dementia, ESRD on HD Current Diet NPO Labs/Tests Reviewed Pertinent Medications Reviewed Height 5 ft 7 in Weight 52 kg [place] Body Weight (kg) 61.36 BMI 17.9 Subjective/Other Information Screened for low BMI. Pt not in room at time of visit. Burn Absent Trauma Absent #1 Nutrition Diagnosis Predicted suboptimal energy intake Etiology dementia As Evidenced by Signs and Symptoms BMI 18 Is patient on ventilator? No Is Patient Ambulatory and/or Out of Bed No REE-([facility]-confined to bed) 1352.292 Kcal/Kg value to use for calculation 32 Approximate Energy Requirements Using 1664 kcal/Kg Calculation Used for Recommendations Kcal/kg Additional Notes Protein Needs: 62-78g (1.2-1. 5g/kg) Fluid Needs: 1 ml/kcal Nutrition Intervention Change Diet Order: Advance diet when medically able Add Supplement/Snack (indicate name/kcal [place] 1 daily once diet /protein ) advanced Provides kCal: 425 Provides Protein (gm) 19 Goal #1 Diet advancement Anticipated Discharge Needs: Unable to determine at this time Follow-Up By: 01/02/19 Additional Comments Follow for malnutrition assessment
[2018-12-31] MEDS: BABY ASPIRIN PO SCH (10:42)
[2018-12-31] MEDS: HEPARIN SUB-Q SCH (10:42)
== END 2018-12-31 11:56 | DRG 69 ==
LOC: ED 16:38 → 4A 18:58
PROVIDERS: ADMIT Internal Medicine; ATTEND Hospitalist
PROC: 5A1D70Z Performance of Urinary Filtration, Intermittent, Less than 6 Hours Per Day (ICD-10-PCS; principal; 2018-12-29)
PROC: 5A1D70Z Performance of Urinary Filtration, Intermittent, Less than 6 Hours Per Day (ICD-10-PCS; 2018-12-30)
DX: G45.9 Transient cerebral ischemic attack, unspecified (principal); N18.6 End stage renal disease; G93.41 Metabolic encephalopathy; I12.0 Hypertensive chronic kidney disease with stage 5 chronic kidney disease or end stage renal disease; I69.354 Hemiplegia and hemiparesis following cerebral infarction affecting left non-dominant side; F02.81 Dementia in other diseases classified elsewhere, unspecified severity, with behavioral disturbance; F05 Delirium due to known physiological condition; K21.9 Gastro-esophageal reflux disease without esophagitis; E11.22 Type 2 diabetes mellitus with diabetic chronic kidney disease; D63.1 Anemia in chronic kidney disease; G30.8 Other Alzheimer's disease; I16.0 Hypertensive urgency; Z99.2 Dependence on renal dialysis; Z82.49 Family history of ischemic heart disease and other diseases of the circulatory system; Z79.899 Other long term (current) drug therapy
CPT/HCPCS: 36415; 70450; 70544; 70547; 70551; 71045; 80048; 80061; 80074; 82962; 83036; 84484; 85025; 85610; 85670; 85730; 93005; 93010; 93306; 94640; 94760; G0378; A9270-GY; J1644; J2060; J7030

== ENCOUNTER 2019-03-15 14:46 | Emergency (ER) | payer MEDICARE ==
--- NOTE | 2019-03-15 15:35 | Event Note ---
Date of service: 03/15/19 Face to Face: Brought to the hospital by emergency medical services from dialysis with a complaint of nausea and vomiting. Patient sitting in stretcher, and in no acute distress. No active vomiting noted at this time. Appropriate screening laboratory studies and imaging studies ordered.
[2019-03-15 16:32] LABS: Hematocrit 31.8 % (30.3-42.9); Hemoglobin 10.5 gm/dl (10.1-14.3); Mean Corpuscular HGB Conc 33 % (30-34); Mean Corpuscular Volume 92 fl (79-97); Platelet Count 141 K/mm3 (140-440); Red Blood Count 3.45 M/mm3 (3.65-5.03); Red Cell Distribution Width 16.5 % (13.2-15.2)
[2019-03-15 16:41] LABS: INR 1.04 (0.87-1.13)
--- NOTE | 2019-03-15 16:46 | Emergency Department Report ---
ED General Adult HPI - General Chief complaint: Nausea/Vomiting/Diarrhea Stated complaint: N/V Time Seen by Provider: 03/15/19 16:18 Source: EMS (verbal report received from EMS. EMS documentation not available at time of chart dictation ), RN notes reviewed, old records reviewed Mode of arrival: Stretcher Limitations: Physical Limitation, Other (the patient is demented. The patient is a poor historian) - History of Present Illness Initial comments: This is a 59-year-old female. This patient is not known to this provider previously. Apparently has a past history of diabetes, high cholesterol, stroke, upper extremity weakness, dementia, GERD, anemia, hypertension, end- stage renal disease on hemodialysis. The patient is brought to the hospital by emergency medical services with a complaint of nausea and vomiting. The patient tells me that she is nauseous. She does not feel like she wants to vomit at this time. She denies physical pain at this time. EMS verbally reports normal Accu-Chek in the field. They indicated they did not witness the patient to be vomiting in the field. The patient does not know who her primary care doctor is or who her insurance office manager is. She denies urinary symptoms. She also denies headache, neck pain, chest pain, abdominal pain and shortness of breath. -: unknown Improves with: none Worsens with: none Associated Symptoms: denies other symptoms - Related Data Home Medications Medication Instructions Recorded Confirmed Last Taken Losartan [Cozaar] 25 mg PO QDAY 11/29/18 11/29/18 Unknown Metoclopramide HCl [Reglan TAB] 5 mg PO QID 11/29/18 11/29/18 Unknown Metoprolol Succinate 200 mg PO DAILY 11/29/18 11/29/18 Unknown Valsartan [Diovan] 320 mg PO QDAY 11/29/18 11/29/18 Unknown amLODIPine 10 mg PO DAILY 11/29/18 11/29/18 Unknown Previous Rx's Medication Instructions Recorded Last Taken Type Metoclopramide [Reglan TAB] 5 mg PO QID tablet 12/04/18 Unknown Rx Metoprolol Xl [Metoprolol 200 mg PO QDAY tablet 12/04/18 Unknown Rx SUCCINATE ER TAB] Minoxidil [Loniten] 2.5 mg PO BID tablet 12/04/18 Unknown Rx Ondansetron [Zofran ODT TAB] 4 mg PO Q8HR tab.rapdis 12/04/18 Unknown Rx Pantoprazole [Protonix TAB] 20 mg PO QDAY tablet. 12/04/18 Unknown Rx Sertraline [Zoloft] 50 mg PO QDAY tablet 12/04/18 Unknown Rx Sevelamer Carbonate [Renvela] 800 mg PO TIDWM tablet 12/04/18 Unknown Rx Valsartan [Diovan] 320 mg PO QDAY tablet 12/04/18 Unknown Rx amLODIPine 10 mg PO DAILY tablet 12/04/18 Unknown Rx cloNIDine [Catapres] 0.1 mg PO Q4H PRN tablet 12/04/18 Unknown Rx hydrALAZINE [Apresoline TAB] 50 mg PO DAILY tablet 12/04/18 Unknown Rx Aspirin [Aspirin BABY CHEW TAB] 81 mg PO QDAY tab.chew 12/30/18 Unknown Rx AtorvaSTATin [Lipitor] 40 mg PO QHS tablet 12/30/18 Unknown Rx Bisacodyl [Dulcolax suppos] 10 mg NH QDAY PRN supp.rect 12/30/18 Unknown Rx Magnesium Hydroxide [Milk of 30 ml PO Q4H PRN oral.liqd 12/30/18 Unknown Rx Magnesia] Metoclopramide [Reglan TAB] 10 mg PO Q6H PRN tablet 12/30/18 Unknown Rx Promethazine [Phenergan SUPPOS] 25 mg NH Q6H PRN supp.rect 12/30/18 Unknown Rx Nitrofurantoin Loving/M-Cryst 100 mg PO Q12HR #13 capsule 03/15/19 Unknown Rx [Macrobid CAP] Ondansetron [Zofran Odt] 4 mg PO Q8HR PRN #20 tab.rapdis 03/15/19 Unknown Rx Allergies Allergy/AdvReac Type Severity Reaction Status Date / Time No Known Allergies Allergy Unverified 06/22/16 20:11 ED Review of Systems ROS: Stated complaint: N/V Other details as noted in HPI Comment: patient demented, and is a poor historian Constitutional: see HPI Eyes: as per HPI ENT: as per HPI Respiratory: see HPI Cardiovascular: as per HPI Gastrointestinal: as per HPI Genitourinary: as per HPI Musculoskeletal: as per HPI Skin: as per HPI Neurological: as per HPI Psychiatric: as per HPI Hematological/Lymphatic: as per HPI ED Past Medical Hx - Past Medical History Previous Medical History?: Yes Hx Hypertension: Yes Hx Congestive Heart Failure: No Hx Diabetes: Yes Hx GERD: Yes Hx Asthma: No Hx COPD: No Hx HIV: No - Surgical History Past Surgical History?: Yes Additional Surgical History: Blind Right eye - Social History Smoking Status: Unknown if ever smoked - Medications Home Medications: Home Medications Medication Instructions Recorded Confirmed Last Taken Type Losartan [Cozaar] 25 mg PO QDAY 11/29/18 11/29/18 Unknown History Metoclopramide HCl [Reglan TAB] 5 mg PO QID 11/29/18 11/29/18 Unknown History Metoprolol Succinate 200 mg PO DAILY 11/29/18 11/29/18 Unknown History Valsartan [Diovan] 320 mg PO QDAY 11/29/18 11/29/18 Unknown History amLODIPine 10 mg PO DAILY 11/29/18 11/29/18 Unknown History Metoclopramide [Reglan TAB] 5 mg PO QID tablet 12/04/18 Unknown Rx Metoprolol Xl [Metoprolol 200 mg PO QDAY tablet 12/04/18 Unknown Rx SUCCINATE ER TAB] Minoxidil [Loniten] 2.5 mg PO BID tablet 12/04/18 Unknown Rx Ondansetron [Zofran ODT TAB] 4 mg PO Q8HR tab.rapdis 12/04/18 Unknown Rx Pantoprazole [Protonix TAB] 20 mg PO QDAY tablet. 12/04/18 Unknown Rx Sertraline [Zoloft] 50 mg PO QDAY tablet 12/04/18 Unknown Rx Sevelamer Carbonate [Renvela] 800 mg PO TIDWM tablet 12/04/18 Unknown Rx Valsartan [Diovan] 320 mg PO QDAY tablet 12/04/18 Unknown Rx amLODIPine 10 mg PO DAILY tablet 12/04/18 Unknown Rx cloNIDine [Catapres] 0.1 mg PO Q4H PRN tablet 12/04/18 Unknown Rx hydrALAZINE [Apresoline TAB] 50 mg PO DAILY tablet 12/04/18 Unknown Rx Aspirin [Aspirin BABY CHEW TAB] 81 mg PO QDAY tab.chew 12/30/18 Unknown Rx AtorvaSTATin [Lipitor] 40 mg PO QHS tablet 12/30/18 Unknown Rx Bisacodyl [Dulcolax suppos] 10 mg NH QDAY PRN supp.rect 12/30/18 Unknown Rx Magnesium Hydroxide [Milk of 30 ml PO Q4H PRN oral.liqd 12/30/18 Unknown Rx Magnesia] Metoclopramide [Reglan TAB] 10 mg PO Q6H PRN tablet 12/30/18 Unknown Rx Promethazine [Phenergan SUPPOS] 25 mg NH Q6H PRN supp.rect 12/30/18 Unknown Rx Nitrofurantoin Loving/M-Cryst 100 mg PO Q12HR #13 capsule 03/15/19 Unknown Rx [Macrobid CAP] Ondansetron [Zofran Odt] 4 mg PO Q8HR PRN #20 tab.rapdis 03/15/19 Unknown Rx ED Physical Exam - General Limitations: Physical Limitation (holding bilateral upper extremities in a flexed position), Other (patient is demented. The patient is a poor historian.) General appearance: alert, in no apparent distress - Head Head exam: Present: atraumatic, normocephalic - Eye Eye exam: Present: EOMI (left eye extraocular movements are intact. There appears to be evidence of old cataract repair in the left I). 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 Absent: tenderness, meningismus - Respiratory Respiratory exam: Present: normal lung sounds bilaterally. Absent: respiratory distress - Cardiovascular Cardiovascular Exam: Present: regular rate, normal rhythm, normal heart sounds. Absent: bradycardia, tachycardia, irregular rhythm, systolic murmur, diastolic murmur, rubs, gallop - GI/Abdominal GI/Abdominal exam: Present: soft. Absent: distended, tenderness, guarding, rebound, rigid, pulsatile mass - Extremities Exam Extremities exam: Present: normal inspection, full ROM (full passive and active range of motion noted to be intact in the bilateral lower extremities. Patient has a left upper extremity fistula, with no redness, pus or streaking. Holding bilateral upper extremities in a contracted position.), other (2+ pulses noted in the bilateral upper, lower extremities. There is no long bone tenderness. Musculoskeletal compartments are soft. The pelvis is stable.). Absent: pedal edema, calf tenderness - Back Exam Back exam: Present: normal inspection. Absent: tenderness, CVA tenderness (R), CVA tenderness (L), paraspinal tenderness, vertebral tenderness - Neurological Exam Neurological exam: Present: alert (the patient is alert to name. She does not have a facial droop. The left-sided extraocular movements are intact. 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 The tongue is midline. Patient moving bilateral lower extremities spontaneously, sensation is intact to light touch in 4 extremities, holding bilateral upper extremities in flexion.) - Skin Skin exam: Present: warm, dry ED Course Vital Signs 03/15/19 03/15/19 03/15/19 16:24 16:31 16:45 Temperature Pulse Rate Respiratory Rate Blood Pressure Blood Pressure [Left] O2 Sat by Pulse 98 99 98 Oximetry 03/15/19 03/15/19 03/15/19 17:01 17:45 17:49 Temperature 98.5 F Pulse Rate 70 Respiratory 18 Rate Blood Pressure 168/72 Blood Pressure 168/72 [Left] O2 Sat by Pulse 99 98 98 Oximetry 03/15/19 03/15/19 03/15/19 17:52 18:01 18:15 Temperature 98.5 F Pulse Rate 66 Respiratory 13 Rate Blood Pressure 166/68 128/57 Blood Pressure [Left] O2 Sat by Pulse 99 98 Oximetry - Reevaluation(s) Reevaluation #1: 03/15/19 17:41 Differential diagnosis, including but not limited to: Constipation, gastritis, electrolyte derangement, obstruction, urinary tract infection, pneumonia Assessment and plan: 59-year-old female demented, with isolated complaint of nausea. She is not actively vomiting at this time. Screening laboratory studies are reviewed and appreciated. They do not demonstrate any emergent condition at this time. The patient appears to be quite comfortable at this time. Urinalysis pending, vital signs pending, noncontrast CT scan of abdomen and pelvis pending at this time. Reevaluation #2: 03/15/19 19:[address] scan suggests constipation and fecal impaction. No active vomiting at this time. We will give patient rectal lactulose. She'll also be started empirically on Macrobid for urinary findings. ED Medical Decision Making - Lab Data Result diagrams: 03/15/19 16:08 03/15/19 16:08 Lab Results 10/03/15/19 03/15/19 Range/Units 15:42 16:08 16:08 WBC 6.4 (4.5-11.0) K/mm3 RBC 3.45 L (3.65-5.03) M/mm3 Hgb 10.5 (10.1-14.3) gm/dl Hct 31.8 (30.3-42.9) % MCV 92 (79-97) fl MCH 30 (28-32) pg MCHC 33 (30-34) % RDW 16.5 H (13.2-15.2) % Plt Count 141 (140-440) K/mm3 PT (12.2-14.9) Sec. INR (0.87-1.13) Sodium 137 (137-145) mmol/L Potassium 3.8 (3.6-5.0) mmol/L Chloride 96.5 L (98-107) mmol/L Carbon Dioxide 27 (22-30) mmol/L Anion Gap 17 mmol/L BUN 24 H (7-17) mg/dL Creatinine 3.3 H (0.7-1.2) mg/dL Estimated GFR 17 ml/min BUN/Creatinine Ratio 7 % Glucose 81 (65-100) mg/dL POC Glucose 72 (70-105) Calcium 8.8 (8.4-10.2) mg/dL Magnesium 2.00 (1.7-2.3) mg/dL Total Bilirubin 0.30 (0.1-1.2) mg/dL AST 16 (5-40) units/L ALT 11 (7-56) units/L Alkaline Phosphatase 74 (35-129) units/L Total Creatine Kinase 93 (30-135) units/L Total Protein 7.0 (6.3-8.2) g/dL Albumin 4.0 (3.9-5) g/dL Albumin/Globulin Ratio 1.3 % 03/15/19 Range/Units 16:08 WBC (4.5-11.0) K/mm3 RBC (3.65-5.03) M/mm3 Hgb (10.1-14.3) gm/dl Hct (30.3-42.9) % MCV (79-97) fl MCH (28-32) pg MCHC (30-34) % RDW (13.2-15.2) % Plt Count (140-440) K/mm3 PT 13.5 (12.2-14.9) Sec. INR 1.04 (0.87-1.13) Sodium (137-145) mmol/L Potassium (3.6-5.0) mmol/L Chloride (98-107) mmol/L Carbon Dioxide (22-30) mmol/L Anion Gap mmol/L BUN (7-17) mg/dL Creatinine (0.7-1.2) mg/dL Estimated GFR ml/min BUN/Creatinine Ratio % Glucose (65-100) mg/dL POC Glucose (70-105) Calcium (8.4-10.2) mg/dL Magnesium (1.7-2.3) mg/dL Total Bilirubin (0.1-1.2) mg/dL AST (5-40) units/L ALT (7-56) units/L Alkaline Phosphatase (35-129) units/L Total Creatine Kinase (30-135) units/L Total Protein (6.3-8.2) g/dL Albumin (3.9-5) g/dL Albumin/Globulin Ratio % - EKG Data -: EKG Interpreted by Mo EKG shows normal: sinus rhythm Rate: normal - EKG Data 03/15/19 17:37 The EKG is limited by motion artifact. This is a sinus rhythm, 68 beats for minute. There is a borderline leftward axis deviation. There is poor R wave progression. There is left ventricular hypertrophy. The EKG is abnormal. The EKG is not consistent with ST elevation myocardial infarction. Poor R-wave progression appears to be old when compared to prior from December 2018. Borderline left axis deviation may be new, however, this may be secondary to lead placement, and or motion artifact. - Radiology Data Radiology results: pending, report reviewed, image reviewed Print Report Referring Physician: MARY GUPTA Patient Name: MACY JOHN Date of : 1960 Sex: Female Report Date: 2019-03-15 Report Status: Finalized Findings [facility] [address] [place] [address] XRay Report Signed Patient: MACY JOHN MR#: [id number] : 1960 Acct:[id number] Age/Sex: 59 / F ADM Date: 03/15/19 Loc: ED Attending Dr: Ordering Physician: MARY GUPTA MD Date of Service: 03/15/19 Procedure(s): XR abd series w cxr 1V Accession Number(s): [id number] cc: MARY GUPTA MD Fluoro Time In Minutes: ABDOMEN 3 VIEW(S) INDICATION: Weakness. Nausea with vomiting. COMPARISON: None available. FINDINGS: Bowel gas pattern: The stomach is mildly distended by gas. No dilated bowel loops are seen. The colon contains a large amount of stool. Free air: None seen. Stones: None seen. Chest: No acute findings. Additional Findings: No additional significant findings. IMPRESSION: 1. Nonspecific mild gastric distention without radiographic evidence of a bowel obstruction. 2. Findings consistent with constipation. Signer Name: Edvin Chakraborty MD Signed: 03/15/2019 5:01 PM Workstation Name: [id number] Transcribed By: MN Dictated By: Edvin Chakraborty MD Electronically Authenticated By: Edvin Chakraborty MD Signed Date/Time: 03/15/191700 DD/ 165 Print Report Referring Physician: MARY GUPTA Patient Name: MACY JOHN Date of : 1960 Sex: Female Report Date: 2019-03-15 Report Status: Finalized Findings [facility] [address] [place] [address] Cat Scan Report Signed Patient: MACY JOHN MR#: [id number] : 1960 Acct:[id number] Age/Sex: 59 / F ADM Date: 03/15/19 Loc: ED Attending Dr: Ordering Physician: MARY GUPTA MD Date of Service: 03/15/19 Procedure(s): CT abdomen pelvis wo con Accession Number(s): [id number] cc: MARY GUPTA MD CT ABDOMEN AND PELVIS WITHOUT CONTRAST INDICATION: n/v weak sbo vs constipation CONTRAST: Without IV COMPARISON: None available. All CT scans at this location are performed using CT dose reduction for ALARA by means of automated exposure control. Note: Artifact is seen in the upper abdomen from the patient's arms. FINDINGS: Minimal bilateral pleural effusions are seen and mild bibasilar atelectatic changes are noted. No pneumoperitoneum is seen. Extensive diffuse subcutaneous edema is noted. Edema is also seen throughout the abdomen and pelvis. Only a small amount of ascites is noted. Gall bladder is mildly distended but shows no calculi or wall thickening. No biliary dilatation is seen. Mild bilateral nephrolithiasis is seen. A small hypodensity in the lateral aspect of the left mid kidney measuring 15 mm has a measured internal density of 21 Hounsfield units which is just above the water range though could be affected by artifact. Another smaller hypodensity more inferiorly in the left kidney measures in the water range and appears to represent a small cyst. Small probable cyst is seen in the right mid kidney in the water range for density. No other masses are seen. Minimal bilateral nephrolithiasis is seen without obstructive change Urinary bladder is difficult to evaluate but appears to have wall thickening. No definite lymphadenopathy is noted though in some areas the retroperitoneum is difficult to evaluate. Moderate amount of stool is seen throughout nondilated colon. There also appears to be a probable rectal impaction. I do not see small bowel dilatation though small bowel loops show mild distention with fluid. IMPRESSION: 1. Evidence of moderate anasarca 2. Evidence of constipation and rectal impaction 3. Normal bilateral nephrolithiasis Signer Name: Clem Carr MD Signed: 03/15/2019 7:07 PM Workstation Name: [id number] Transcribed By: GJ Dictated By: Clem Carr MD Electronically Authenticated By: Clem Carr MD Signed Date/Time: 03/15/19 1332 Critical care attestation.: If time is entered above; I have spent that time in minutes in the direct care of this critically ill patient, excluding procedure time. ED Disposition Clinical Impression: ESRD (end stage renal disease), Dementia, Debility, History of nausea, Constipation Disposition: DC-01 TO HOME OR SELFCARE Is pt being admited?: No Does the pt Need Aspirin: No Condition: Stable Additional Instructions: Continue outpatient medications. Take the antibiotic as directed for possible urinary tract infection. Cultures were sent today, and results will be available in the next 3-5 days. Please have primary care doctor contact medical records department to obtain culture results. CT scan and x-ray suggested c onstipation. Constipation typically takes days weeks or even months to resolve. Increased consumption of fiber, vegetables, fruit. Avoid consumption of simple and complex carbohydrates. Consume 2-3 cups of water per day. Follow-up with your primary care doctor or kidney doctor within the next 10-14 days. Continue outpatient dialysis. Take the nausea medication is needed and directed. Return to emergency room right away with new, worsened, different symptoms, or symptoms not present on the initial emergency room evaluation. Referrals: [facility] [Provider Group] - as needed [facility] [Provider Group] - as needed
[2019-03-15 16:51] LABS: Calcium 8.8 mg/dL (8.4-10.2)
--- NOTE | 2019-03-15 17:05 | XRay Report ---
ABDOMEN 3 VIEW(S) INDICATION: Weakness. Nausea with vomiting. COMPARISON: None available. FINDINGS: Bowel gas pattern: The stomach is mildly distended by gas. No dilated bowel loops are seen. The colon contains a large amount of stool. Free air: None seen. Stones: None seen. Chest: No acute findings. Additional Findings: No additional significant findings. IMPRESSION: 1. Nonspecific mild gastric distention without radiographic evidence of a bowel obstruction. 2. Findings consistent with constipation. Signer Name: Edvin Chakraborty MD Signed: 03/15/2019 5:01 PM Workstation Name: [id number]
[2019-03-15] MEDS ORDERED: ZOFRAN ODT PO STA (17:35)
[2019-03-15 18:44] LABS: Bacteria,Urine 1+ /HPF (Negative); Bilirubin,Urine NEG (Negative); Blood,Urine SM (Negative); Color,Urine Yellow (Yellow); Mucus,Urine 3+ /HPF; Urobilinogen,Urine < 2.0 mg/dL (<2.0)
--- NOTE | 2019-03-15 19:12 | Cat Scan Report ---
CT ABDOMEN AND PELVIS WITHOUT CONTRAST INDICATION: n/v weak sbo vs constipation CONTRAST: Without IV COMPARISON: None available. All CT scans at this location are performed using CT dose reduction for ALARA by means of automated e xposure control. Note: Artifact is seen in the upper abdomen from the patient's arms. FINDINGS: Minimal bilateral pleural effusions are seen and mild bibasilar atelectatic changes are not ed. No pneumoperitoneum is seen. Extensive diffuse subcutaneous edema is noted. Edema is also seen th roughout the abdomen and pelvis. Only a small amount of ascites is noted. Gall bladder is mildly dist ended but shows no calculi or wall thickening. No biliary dilatation is seen. Mild bilateral nephrolithiasis is seen. A small hypodensity in the lateral aspect of the left mid kid jonnathan measuring 15 mm has a measured internal density of 21 Hounsfield units which is just above the wa ter range though could be affected by artifact. Another smaller hypodensity more inferiorly in the le ft kidney measures in the water range and appears to represent a small cyst. Small probable cyst is s een in the right mid kidney in the water range for density. No other masses are seen. Minimal bilater al nephrolithiasis is seen without obstructive change Urinary bladder is difficult to evaluate but ap pears to have wall thickening. No definite lymphadenopathy is noted though in some areas the retroperitoneum is difficult to evaluat e. Moderate amount of stool is seen throughout nondilated colon. There also appears to be a probable rec alisa impaction. I do not see small bowel dilatation though small bowel loops show mild distention with fluid. IMPRESSION: 1. Evidence of moderate anasarca 2. Evidence of constipation and rectal impaction 3. Normal bilateral nephrolithiasis Signer Name: Clem Carr MD Signed: 03/15/2019 7:07 PM Workstation Name: [id number]
[2019-03-15] MEDS ORDERED: CEPHULAC PR STA (19:21)
[2019-03-16 10:15] VITALS: BP 152/62
== END 2019-03-16 10:52 | disposition home or self-care (01) ==
LOC: ED 14:46
DX: K59.00 Constipation, unspecified (principal); K21.9 Gastro-esophageal reflux disease without esophagitis; R53.81 Other malaise; F03.90 Unspecified dementia, unspecified severity, without behavioral disturbance, psychotic disturbance, mood disturbance, and anxiety; E11.22 Type 2 diabetes mellitus with diabetic chronic kidney disease; I12.0 Hypertensive chronic kidney disease with stage 5 chronic kidney disease or end stage renal disease; N18.6 End stage renal disease; Z99.2 Dependence on renal dialysis; Z87.898 Personal history of other specified conditions; Z79.899 Other long term (current) drug therapy
CPT/HCPCS: 36415; 74022; 74176; 80053; 80320; 81001; 82550; 82962; 83735; 85027; 85610; 87086; 93005; 93010; G0480; Q0162

== ENCOUNTER 2019-03-28 08:26 | Observation (INO) | payer MEDICARE ==
--- NOTE | 2019-03-28 08:48 | Emergency Department Report ---
HPI <MANA CUI A - Last Filed: 03/28/19 18:34> - HPI HPI: 59-year-old -[place] female presents to the emergency department via EMS from her [facility] with the complaint of hypertension. Apparently the patient did finish dialysis but still continued to have very e levated blood pressure. Allegedly she was given some antihypertensive medication but this did not help. The patient has a past medical history of diabetes, previous CVA, dementia, GERD, and end-stage renal disease on hemodialysis on Wednesday//Wednesday. Her nib adjuster is listed as Dr. Sorto. The patient is AAO 2 which apparently is her baseline. She has some extremity contractures and does not appear to be ambulatory at baseline. The patient has no complaints but is a poor historian. <BEE ROJAS S - Last Filed: 03/29/19 20:22> - General Chief Complaint: High BP Time Seen by Provider: 03/28/19 08:41 ED Past Medical Hx <MANA CUI A - Last Filed: 03/28/19 18:34> - Past Medical History Previous Medical History?: Yes Hx Hypertension: Yes Hx Congestive Heart Failure: No Hx Diabetes: Yes Hx GERD: Yes Hx Renal Disease: Yes (MWF) Hx Asthma: No Hx COPD: No Hx HIV: No Additional medical history: Hyperparathyroidism. Anemia - Surgical History Past Surgical History?: Yes Additional Surgical History: Blind Right eye - Social History Smoking Status: Former Smoker Substance Use Type: None <BEE ROJAS - Last Filed: 03/29/19 20:22> - Medications Home Medications: Home Medications Medication Instructions Recorded Confirmed Last Taken Type Ondansetron [Zofran ODT TAB] 4 mg PO Q8HR PRN #20 tab.rapdis 03/15/19 03/28/19 Unknown Rx Acetaminophen [Acetaminophen TAB] 325 mg PO Q4H PRN #15 tablet 03/29/19 Unknown Rx AtorvaSTATin [Lipitor] 0.5 tab PO QHS #30 tab 03/29/19 Unknown Rx Metoprolol Xl [Metoprolol 100 mg PO QDAY #30 tablet 03/29/19 Unknown Rx SUCCINATE ER TAB] Minoxidil [Loniten] 2.5 mg PO BID #60 tablet 03/29/19 03/28/19 Unknown Rx Pantoprazole [Protonix TAB] 20 mg PO QDAY #30 tablet. 03/29/19 03/28/19 Unknown Rx Sertraline [Zoloft] 50 mg PO QDAY #30 tablet 03/29/19 03/28/19 Unknown Rx Sevelamer Carbonate [Renvela] 800 mg PO TIDWM #90 tablet 03/29/19 03/28/19 Unknown Rx Valsartan [Diovan] 320 mg PO QDAY #30 03/29/19 03/28/19 Unknown Rx amLODIPine 10 mg PO DAILY #30 tablet 03/29/19 Unknown Rx hydrALAZINE [Apresoline TAB] 2 tab PO TID 31 Days #120 tablet 03/29/19 Unknown Rx ED Review of Systems ROS: Stated complaint: VOMITING/HTN Other details as noted in HPI <MANA CUI A - Last Filed: 03/28/19 18:34> ROS: Stated complaint: VOMITING/HTN Other details as noted in HPI Comment: All other systems reviewed and negative Constitutional: denies: fever Respiratory: denies: cough, shortness of breath Cardiovascular: denies: chest pain Gastrointestinal: denies: abdominal pain, nausea, vomiting Neurological: denies: headache <BEE ROJAS S - Last Filed: 03/29/19 20:22> Physical Exam - Physical Exam Vital Signs: Vital Signs 03/28/19 03/28/19 03/28/19 08:44 09:00 10:00 Temperature 97.7 F Pulse Rate 63 61 60 Respiratory 17 11 L 11 L Rate Blood Pressure 205/87 195/86 Blood Pressure 211/87 [Right] O2 Sat by Pulse 100 97 98 Oximetry 03/28/19 03/28/19 03/28/19 11:00 12:00 14:00 Temperature Pulse Rate 60 62 59 L Respiratory 17 11 L 12 Rate Blood Pressure 185/80 197/86 203/86 Blood Pressure [Right] O2 Sat by Pulse 98 100 99 Oximetry 03/28/19 03/28/19 03/28/19 14:11 14:30 15:00 Temperature Pulse Rate 59 L 57 L 58 L Respiratory 12 9 L Rate Blood Pressure 203/86 194/84 200/83 Blood Pressure [Right] O2 Sat by Pulse 99 100 Oximetry 03/28/19 03/28/19 03/28/19 15:30 15:40 15:42 Temperature Pulse Rate 58 L 58 L 58 L Respiratory 11 L Rate Blood Pressure 205/87 205/87 205/87 Blood Pressure [Right] O2 Sat by Pulse 100 Oximetry 03/28/19 03/28/19 16:00 16:30 Temperature Pulse Rate 57 L 56 L Respiratory 13 13 Rate Blood Pressure 198/87 190/85 Blood Pressure [Right] O2 Sat by Pulse 100 99 Oximetry <MANA CUI - Last Filed: 03/28/19 18:34> - Physical Exam Physical Exam: GENERAL: The patient does not appear in any acute distress. HENT: Normocephalic. Atraumatic. Patient has moist mucous membranes. EYES: Left eye extraocular motion intact. The patient does not have a right eye. NECK: Supple. Trachea is midline. CHEST/LUNGS: Clear to auscultation. There is no respiratory distress noted. HEART/CARDIOVASCULAR: Regular. There is no tachycardia. There is no murmur. ABDOMEN: Abdomen is soft, nontender. Patient has normal bowel sounds. There is no abdominal distention. SKIN: Skin is warm and dry. NEURO: The patient is awake. Patient follows some commands. AAO [address] but not time. No facial asymmetry. Withdraws from painful stimuli. MUSCULOSKELETAL: There appears to be a patent left upper extremity dialysis fistula. Bilateral upper extremity contractures. <BEE ROJAS S - Last Filed: 03/29/19 20:22> ED Course Vital Signs 03/28/19 03/28/19 03/28/19 08:44 09:00 10:00 Temperature 97.7 F Pulse Rate 63 61 60 Respiratory 17 11 L 11 L Rate Blood Pressure 205/87 195/86 Blood Pressure 211/87 [Right] O2 Sat by Pulse 100 97 98 Oximetry 03/28/19 03/28/19 03/28/19 11:00 12:00 14:00 Temperature Pulse Rate 60 62 59 L Respiratory 17 11 L 12 Rate Blood Pressure 185/80 197/86 203/86 Blood Pressure [Right] O2 Sat by Pulse 98 100 99 Oximetry 03/28/19 03/28/19 03/28/19 14:11 14:30 15:00 Temperature Pulse Rate 59 L 57 L 58 L Respiratory 12 9 L Rate Blood Pressure 203/86 194/84 200/83 Blood Pressure [Right] O2 Sat by Pulse 99 100 Oximetry 03/28/19 03/28/19 03/28/19 15:30 15:40 15:42 Temperature Pulse Rate 58 L 58 L 58 L Respiratory 11 L Rate Blood Pressure 205/87 205/87 205/87 Blood Pressure [Right] O2 Sat by Pulse 100 Oximetry 03/28/19 03/28/19 16:00 16:30 Temperature Pulse Rate 57 L 56 L Respiratory 13 13 Rate Blood Pressure 198/87 190/85 Blood Pressure [Right] O2 Sat by Pulse 100 99 Oximetry <MANA CUI - Last Filed: 03/28/19 18:34> - Reevaluation(s) Reevaluation #1: 03/28/19 15:49 I spoke to the patient's son who says that the patient sounds like she is at her baseline mental status. The patient does tend to sleep if she is not being stimulated. She is currently working with speech therapists. <BEE ROJAS S - Last Filed: 03/29/19 20:22> - Central Line Placement central line- [facility] Consent Obtained: verbal consent Time Out Performed: Yes Patient Placed on Monitor/Pulse Ox: Yes MD Prep: mask, gown, gloves Central Line Prep: Chlorhexidine scrub Local Anesthesia Used: Lidocaine 1% Amount of Anesthesia Used (mls): 4 Ultrasound Used for Placement: Yes Central Line Lumen Inserted: triple Bloods Obtained for Lab: No Central Line Position: good blood return, all ports aspirated, flus, sutured in place with 2-0 Dressing Applied: Tegaderm, sterile gauze/tape Patient Tolerated Procedure: well Additional Comments: pt had been stuck several times peripherally and in EJ today some difficulty navigating small hematoma proximal to insertion site. good blood flow on aspiration ports flushed without difficulty pt tolerated procedure well VSS <MANA CUI - Last Filed: 03/28/19 18:34> ED Medical Decision Making - Lab Data Result diagrams: 03/28/19 09:17 03/28/19 09:17 - Radiology Data Radiology results: report reviewed, image reviewed 1830 xray ordered post line VSS Dr Singer aware and will follow up with placement confirmation <MANA CUI A - Last Filed: 03/28/19 18:34> - Lab Data Result diagrams: 03/29/19 07:39 03/29/19 07:39 - Medical Decision Making The patient was sent in from dialysis after she still had very elevated blood pressure despite finishing her dialysis session. Allegedly she was given some antihypertensive medication that did not improve her blood pressure. Patient presents with a systolic of about 200. She has no complaints at this time. Labs are mostly unremarkable except for end-stage renal disease. It was very difficult to get IV access on this patient. The IV team came down and was able to get a right forearm 22-gauge peripheral line but this line blew the first t jen it was to be flushed. The patient was given some oral hydralazine and Catapres but her blood pressure went up after one hour. The patient still has significantly elevated blood pressure, it is my intention to admit this patient as the hospital for further evaluation and treatment. The IV team has yet again been called to help provide access. I spoke with the admitting hospitalist, Dr Singer, who asked that bridging orders not be placed and he will evaluate the patient for either admission or further disposition. It appears that the hospitalist decided to admit this patient for her hyper tensive issues. The nurse practitioner in the emergency department placed a central line catheter so we would have vascular access. <BEE ROJAS S - Last Filed: 03/29/19 20:22> Critical care attestation.: If time is entered above; I have spent that time in minutes in the direct care of this critically ill patient, excluding procedure time. <MANA CUI A - Last Filed: 03/28/19 18:34> Critical Care Time: No Critical care attestation.: If time is entered above; I have spent that time in minutes in the direct care of this critically ill patient, excluding procedure time. <BEE ROJAS S - Last Filed: 03/29/19 20:22> ED Disposition <MANA CUI - Last Filed: 03/28/19 18:34> Is pt being admited?: Yes Time of Disposition: 15:50 <BEE ROJAS S - Last Filed: 03/29/19 20:22> Clinical Impression: Hypertensive urgency, End-stage renal disease on hemodialysis Disposition: DC-09 OP ADMIT IP TO THIS HOSP Condition: Stable
[2019-03-28 09:45] LABS: Basophils # (Auto) 0.1 K/mm3 (0.0-0.1); Basophils % (Auto) 2.2 % (0.0-1.8); Eosinophils # (Auto) 0.1 K/mm3 (0.0-0.4); Eosinophils % (Auto) 2.3 % (0.0-4.3); Hematocrit 36.3 % (30.3-42.9); Lymphocytes # (Auto) 1.3 K/mm3 (1.2-5.4); Lymphocytes % (Auto) 23.2 % (13.4-35.0); Mean Corpuscular HGB Conc 33 % (30-34); Mean Corpuscular Volume 93 fl (79-97); Monocytes # (Auto) 0.7 K/mm3 (0.0-0.8); Monocytes % (Auto) 11.6 % (0.0-7.3); Platelet Count 208 K/mm3 (140-440); Red Blood Count 3.92 M/mm3 (3.65-5.03); Red Cell Distribution Width 15.8 % (13.2-15.2)
[2019-03-28] MEDS ORDERED: hydrALAZINE 20 MG/1 ML INJ IV ONE (09:52)
[2019-03-28 10:02] LABS: Calcium 9.2 mg/dL (8.4-10.2)
[2019-03-28] MEDS ORDERED: hydrALAZINE 20 MG/1 ML INJ ONE (13:45)
[2019-03-28] MEDS ORDERED: hydrALAZINE 25 MG TAB PO ONE ×2 (13:57→15:23)
[2019-03-28] MEDS ORDERED: cloNIDine 0.1 MG TAB PO ONE (13:57)
[2019-03-28] MEDS ORDERED: cloNIDine 0.2 MG TAB PO ONE (15:23)
[2019-03-28] MEDS ORDERED: LORazepam 2 MG/ML VIAL IM ONE (15:24)
[2019-03-28] MEDS ORDERED: METOCLOPRAMIDE 10 MG TAB PO PRN (17:44)
[2019-03-28] MEDS ORDERED: ONDANSETRON 4 MG ODT TAB PO PRN (17:44)
[2019-03-28] MEDS ORDERED: VALSARTAN 320 MG PO SCH (17:45)
[2019-03-28] MEDS ORDERED: METOPROLOL SUCCINATE 200 MG PO SCH (17:45)
[2019-03-28] MEDS ORDERED: ONDANSETRON 4 MG/2 ML INJ IV PRN (17:46)
[2019-03-28] MEDS ORDERED: HYDROmorphone 1 MG/1 ML INJ IV PRN (17:46)
[2019-03-28] MEDS ORDERED: ACETAMINOPHEN 325 MG TAB PO PRN (17:46)
[2019-03-28] MEDS ORDERED: oxyCODONE /ACETAMINOPHEN 5-325MG TAB PO PRN (17:46)
[2019-03-28] MEDS ORDERED: hydrALAZINE 20 MG/1 ML INJ IV PRN (17:52)
[2019-03-28] MEDS: METOPROLOL SUCCINATE XL 100 MG TAB PO SCH (18:27)
[2019-03-28] MEDS: SERTRALINE 50 MG TAB PO SCH (18:28)
[2019-03-28] MEDS: hydrALAZINE 25 MG TAB PO SCH (18:28)
[2019-03-28] MEDS: amLODIPine 10 MG TAB PO SCH (18:28)
[2019-03-28] MEDS: PANTOPRAZOLE 20 MG TAB PO SCH (18:29)
--- NOTE | 2019-03-28 19:21 | XRay Report ---
CHEST 1 VIEW INDICATION: post line. COMPARISON: 12/28/2018 FINDINGS: Support devices: New left IJ CVL with tip flipped cranially into the region of the right brachiocepha lic vein. Recommend repositioning with tip distally near the cavoatrial junction. Heart: Within normal limits. Lungs/Pleura: No acute air space or interstitial disease. No pneumothorax. Additional findings: None. IMPRESSION: 1. New left IJ line as above. Signer Name: Medhat Yates MD Signed: 03/28/2019 7:17 PM Workstation Name: [id number]
[2019-03-28] MEDS: MINOXIDIL 2.5 MG TAB PO SCH (22:09)
[2019-03-28] MEDS: VALSARTAN 160MG TAB PO SCH (22:09)
[2019-03-28] MEDS: HEPARIN 5,000 UNIT/1 ML VIAL SUB-Q SCH (22:10)
--- NOTE | 2019-03-29 07:16 | Event Note ---
Date: 03/28/19 See H/p in reports HTN emergency ESRD
--- NOTE | 2019-03-29 07:34 | History and Physical Report ---
CHIEF COMPLAINT: High blood pressure. HISTORY OF PRESENT ILLNESS: A 59-year-old -[place] female sent from the dialysis clinic for uncontrolled blood pressure. She was given some antihypertensive medications, but did not help. The patient has past medical history of diabetes, CVAs, dementia, GERD and end-stage renal disease. No shortness of breath, no chest pain. PAST MEDICAL HISTORY: Significant for hypertension, end-stage renal disease, diabetes, GERD, hyperparathyroidism and anemia. PAST SURGICAL HISTORY: AV fistula. SOCIAL HISTORY: Former smoker. FAMILY HISTORY: Hypertension. REVIEW OF SYSTEMS: Significant for vomiting and high blood pressure. Otherwise, review of systems negative. PHYSICAL EXAMINATION: VITAL SIGNS: Blood pressure was 205/87 and 194/86. Temperature 97.7, pulse is 63, respirations are 17. HEENT: Unremarkable. Pupils are equal and reactive. NECK: Supple, no lymphadenopathy, no thyromegaly. LUNGS: Clear to auscultation and percussion. Good air entry. CARDIOVASCULAR SYSTEM: S1, S2 heard. No gallop, no murmur, no rub. Apical impulse in left fifth intercostal space and midclavicular line. ABDOMEN: Soft and benign. No hepatosplenomegaly. No guarding, no rigidity. Hernial orifices are normal. EXTREMITIES: Good pedal pulses. No pedal edema. CENTRAL NERVOUS SYSTEM: Alert and oriented x 4, nonfocal exam. LABORATORY DATA: Significant for normal CBC. Electrolytes are normal. BUN and creatinine 64 and 7.3, glucose is 133. A1c is 4.7. Chest x-ray, no acute findings. ASSESSMENT AND PLAN: 1. Hypertensive emergency. The patient initiated on antihypertensives and hydralazine IV given in the Emergency Room. Hydralazine IV q. 3 hours p.r.n. for blood pressure more than 160/100. 2. End-stage renal disease, on dialysis. Continue hemodialysis. 3. Hyperparathyroidism. Continue Renvela. 4. Hyperlipidemia. Continue atorvastatin. 5. Gastroesophageal reflux disease. Continue pantoprazole. 6. Deep venous thrombosis prophylaxis. Heparin 5000 q. 12. JOB# [id number] VSM/NTS MTDD
[2019-03-29 07:49] LABS: Basophils # (Auto) 0.1 K/mm3 (0.0-0.1); Basophils % (Auto) 1.1 % (0.0-1.8); Eosinophils # (Auto) 0.2 K/mm3 (0.0-0.4); Hematocrit 34.3 % (30.3-42.9); Hemoglobin 11.1 gm/dl (10.1-14.3); Lymphocytes # (Auto) 1.5 K/mm3 (1.2-5.4); Lymphocytes % (Auto) 20.7 % (13.4-35.0); Mean Corpuscular HGB Conc 32 % (30-34); Mean Corpuscular Volume 94 fl (79-97); Monocytes # (Auto) 0.6 K/mm3 (0.0-0.8); Monocytes % (Auto) 7.5 % (0.0-7.3); Red Blood Count 3.66 M/mm3 (3.65-5.03); Red Cell Distribution Width 15.7 % (13.2-15.2)
[2019-03-29 08:16] LABS: Calcium 8.9 mg/dL (8.4-10.2)
[2019-03-29 08:17] LABS: Albumin 3.8 g/dL (3.9-5)
[2019-03-29 08:38] LABS: Platelet Count 150 K/mm3 (140-440)
[2019-03-29] MEDS: SEVELAMER CARBONATE 800 MG TAB PO SCH ×3 (09:00→17:17)
[2019-03-29] MEDS: HEPARIN 5,000 UNIT/1 ML VIAL SUB-Q SCH ×2 (10:16→23:58)
[2019-03-29] MEDS: PANTOPRAZOLE 20 MG TAB PO SCH (10:16)
[2019-03-29] MEDS: MINOXIDIL 2.5 MG TAB PO SCH ×2 (10:16→23:58)
[2019-03-29] MEDS: SERTRALINE 50 MG TAB PO SCH (10:16)
[2019-03-29] MEDS: VALSARTAN 160MG TAB PO SCH (10:17)
[2019-03-29] MEDS: hydrALAZINE 25 MG TAB PO SCH ×3 (10:18→23:59)
[2019-03-29] MEDS: amLODIPine 10 MG TAB PO SCH (10:18)
[2019-03-29] MEDS: METOPROLOL SUCCINATE XL 100 MG TAB PO SCH (10:19)
--- NOTE | 2019-03-29 16:31 | Progress Note ---
Assessment and Plan Assessment and plan: Patient is a 59 yo woman with a history of ESRD on HD, AOCD, hypertension, DM type 2, GERD and hypertension who presented with uncontrolled hypertension. 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 Follow-up on current diagnosis of Uncontrolled hypertension. No overnight events reported to me. Patient denies any chest pain, shortness breath, nausea/vomiting or severe headaches. Imaging, nursing note, chart, labs and old chart reviewed. Discussed with patient. Hospitalist Physical - Physical exam Narrative exam: Gen: thin frail, bmi 18.5, NAD, Awake, Alert, Orientated HEENT: NCAT, EOMI, PERRL, OP Clear Neck: supple, no adenopathy, no thyromegaly, no JVD CVS/Heart: RRR, normal S1S2, pulses present bilaterally Chest/Lungs: CTA B, Symmetrical chest expansion, good air entry bilaterally GI/Abdomen: soft, NTND, good bowel sounds, no guarding or rebound /Bladder: no suprapubic tenderness, no CVA or paraspinal tenderness Extermity/Skin: no c/c/e, no obvious rash MSK: FROM x 4 Neuro: CN 2-12 grossly intact, no new focal deficits Psych: calm - Constitutional Vitals: Temp Pulse Resp BP Pulse Ox 98.2 F 60 16 175/64 98 03/29/19 09:59 03/29/19 10:18 03/29/19 12:36 03/29/19 10:18 03/29/19 12:36 Results - Labs CBC & Chem 7: 03/29/19 07:39 03/29/19 07:39 Labs: Laboratory Last Values WBC 7.4 K/mm3 (4.5-11.0) 03/29/19 07:39 RBC 3.66 M/mm3 (3.65-5.03) 03/29/19 07:39 Hgb 11.1 gm/dl (10.1-14.3) 03/29/19 07:39 Hct 34.3 % (30.3-42.9) 03/29/19 07:39 MCV 94 fl (79-97) 03/29/19 07:39 MCH 30 pg (28-32) 03/29/19 07:39 MCHC 32 % (30-34) 03/29/19 07:39 RDW 15.7 % (13.2-15.2) H 03/29/19 07:39 Plt Count 150 K/mm3 (140-440) 03/29/19 07:39 Lymph % (Auto) 20.7 % (13.4-35.0) 03/29/19 07:39 Hendricks % (Auto) 7.5 % (0.0-7.3) H 03/29/19 07:39 Eos % (Auto) 3.0 % (0.0-4.3) 03/29/19 07:39 Baso % (Auto) 1.1 % (0.0-1.8) 03/29/19 07:39 Lymph # 1.5 K/mm3 (1.2-5.4) 03/29/19 07:39 Hendricks # 0.6 K/mm3 (0.0-0.8) 03/29/19 07:39 Eos # 0.2 K/mm3 (0.0-0.4) 03/29/19 07:39 Baso # 0.1 K/mm3 (0.0-0.1) 03/29/19 07:39 Seg Neutrophils % 67.7 % (40.0-70.0) 03/29/19 07:39 Seg Neutrophils # 5.0 K/mm3 (1.8-7.7) 03/29/19 07:39 Sodium 141 mmol/L (137-145) 03/29/19 07:39 Potassium 4.5 mmol/L (3.6-5.0) 03/29/19 07:39 Chloride 100.2 mmol/L (98-107) 03/29/19 07:39 Carbon Dioxide 23 mmol/L (22-30) 03/29/19 07:39 Anion Gap 22 mmol/L 03/29/19 07:39 BUN 72 mg/dL (7-17) H 03/29/19 07:39 Creatinine 7.6 mg/dL (0.7-1.2) H 03/29/19 07:39 Estimated GFR 7 ml/min 03/29/19 07:39 BUN/Creatinine Ratio 9 % 03/29/19 07:39 Glucose 127 mg/dL (65-100) H 03/29/19 07:39 POC Glucose 108 (70-105) H 03/28/19 18:36 Hemoglobin A1c 4.7 % (4-6) 03/28/19 09:17 Calcium 8.9 mg/dL (8.4-10.2) 03/29/19 07:39 Total Bilirubin 0.30 mg/dL (0.1-1.2) 03/29/19 07:39 AST 14 units/L (5-40) 03/29/19 07:39 ALT 8 units/L (7-56) 03/29/19 07:39 Alkaline Phosphatase 74 units/L (35-129) 03/29/19 07:39 Total Protein 6.8 g/dL (6.3-8.2) 03/29/19 07:39 Albumin 3.8 g/dL (3.9-5) L 03/29/19 07:39 Albumin/Globulin Ratio 1.3 % 03/29/19 07:39 Active Medications - Current Medications Current Medications: Generic Name Dose Route Start Last Admin Trade Name Freq PRN Reason Stop Dose Admin Acetaminophen 650 mg 03/28/19 17:46 Tylenol PO Q4H PRN Pain MILD(1-3)/Fever >100.5/POWERS Amlodipine Besylate 10 mg 03/28/19 18:00 03/29/19 10:18 Amlodipine PO 10 mg DAILY SALTY Administration Atorvastatin Calcium 10 mg 03/28/19 22:00 03/28/19 22:09 Lipitor PO 10 mg QHS SALTY Administration Heparin Sodium (Porcine) 5,000 unit 03/28/19 22:00 03/29/19 10:16 Heparin SUB-Q 5,000 unit Q12HR SALTY Administration Hydralazine HCl 10 mg 03/28/19 17:52 Apresoline IV Q3H PRN Blood Pressure Hydromorphone HCl 0.5 mg 03/28/19 17:46 Dilaudid IV Q3H PRN Pain , Severe (7-10) Metoclopramide HCl 5 mg 03/28/19 17:44 Reglan PO QID PRN Nausea And Vomiting Metoprolol Succinate 100 mg 03/30/19 10:00 Metoprolol Xl PO QDAY SALTY Minoxidil 2.5 mg 03/28/19 22:00 03/29/19 10:16 Loniten PO 2.5 mg BID SALTY Administration Ondansetron HCl 4 mg 03/28/19 17:44 Zofran Odt PO Q8HR PRN Nausea Ondansetron HCl 4 mg 03/28/19 17:46 Zofran IV Q8H PRN Nausea And Vomiting Oxycodone/Acetaminophen 1 tab 03/28/19 17:46 Percocet 5/325 PO Q6H PRN Pain, Moderate (4-6) Pantoprazole Sodium 20 mg 03/28/19 18:00 03/29/19 10:16 Protonix PO 20 mg QDAY SALTY Administration Sertraline HCl 50 mg 03/28/19 18:00 03/29/19 10:16 Zoloft PO 50 mg QDAY SALTY Administration Sevelamer Carbonate 800 mg 03/29/19 08:00 03/29/19 12:47 Renvela PO 800 mg TIDWM SALTY Administration Sodium Chloride 10 ml 03/28/19 22:00 03/29/19 10:17 Sodium Chloride Flush Syringe 10 Ml IV 10 ml BID SALTY Administration Sodium Chloride 10 ml 03/28/19 17:46 Sodium Chloride Flush Syringe 10 Ml IV PRN PRN LINE FLUSH Valsartan 320 mg 03/28/19 18:00 03/29/19 10:17 Diovan PO 320 mg QDAY SALTY Administration Nutrition/Malnutrition Assess - Dietary Evaluation Nutrition/Malnutrition Findings: Nutrition Notes Start: 03/29/19 14:11 Freq: Status: Active Protocol: Document 03/29/19 14:11 RM (Rec: 03/29/19 14:20 RM [id number]) Nutrition Notes Need for Assessment generated from: Low BMI Initial or Follow up Assessment Current Diagnosis Diabetes,Hyperlipidemia Other Pertinent Diagnosis Hx CVAs, Dementia, GERD, ESRD on HD Current Diet Renal Labs/Tests Reviewed Pertinent Medications Reviewed Height 5 ft 4 in Weight 48.8 kg [place] Body Weight (kg) 54.54 BMI 18.4 Weight change and time frame Current wt obtained from bedside. Admission wt likely inaccurate. Subjective/Other Information Screened for low BMI. Pt and pt nurse in room at time of visit. Per nurse pt ate 50% of breakfast but chews and drinks slowly. Noted pt contracted and lacking upper teeth. Noted moderate temporal wasting. Burn Absent Trauma Absent Minimum of two criteria No #1 Nutrition Diagnosis Inadequate oral intake Etiology possible chewing difficulty As Evidenced by Signs and Symptoms pt nurse statement that pt ate 50% of breakfast Is patient on ventilator? No Is Patient Ambulatory and/or Out of Bed No REE-([facility]-confined to bed) 1250.868 Kcal/Kg value to use for calculation 36 Approximate Energy Requirements Using 1757 kcal/Kg Calculation Used for Recommendations Kcal/kg Additional Notes Protein Needs: 58g (>1.2g/kg) Fluid Needs: 1 ml/kcal Nutrition Intervention Change Diet Order: Renal, Mech soft w/ground meat Add Supplement/Snack (indicate name/kcal Nepro 1 daily /protein ) Provides kCal: 425 Provides Protein (gm) 19 Goal #1 Meet at least 75% of calorie and protein needs via PO and ONS intakes Goal #2 Wt gain/maintenance Anticipated Discharge Needs: Renal diet Follow-Up By: 03/31/19 Additional Comments Follow for PO and ONS intakes
--- NOTE | 2019-03-29 16:37 | Discharge Summary ---
Providers - Providers Date of Admission: 03/28/19 17:46 Date of discharge: 03/31/19 Attending physician: QUINN DURAN 03/29/19 16:16 Consult to Physician [CONS] Routine Reason For Exam: ESRD needing HD Consulting Provider: TRISTAN VILLALOBOS Physician Instructions: Comment: Primary care physician: CERTIFIED PHARMACY TECHNICIAN Hospitalization Condition: Stable Hospital course: Patient is a 59 yo woman with a history of ESRD on HD, AOCD, hypertension, DM type 2, GERD and hypertension who presented with uncontrolled hypertension. 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 DVT ppx: sq heparin d/c after hemodialysis Disposition: DC-01 TO HOME OR SELFCARE Time spent for discharge: 33 minutes Core Measure Documentation - Palliative Care Palliative Care/ Comfort Measures: Not Applicable - Core Measures Any of the following diagnoses?: none - VTE Discharge Requirements Deep Vein Thrombosis/Pulmonary Embolism Present on Admission: No Has pt received <5 days of overlap therapy or INR<2.0: No Anticoagulant overlap therapy prescribed at discharge: No Contraindication No Overlap Therapy order at DC: Not Indicated Exam - Physical Exam Narrative exam: Gen: thin frail, bmi 18.5, NAD, Awake, Alert, Orientated HEENT: NCAT, EOMI, PERRL, OP Clear Neck: supple, no adenopathy, no thyromegaly, no JVD CVS/Heart: RRR, normal S1S2, pulses present bilaterally Chest/Lungs: CTA B, Symmetrical chest expansion, good air entry bilaterally GI/Abdomen: soft, NTND, good bowel sounds, no guarding or rebound /Bladder: no suprapubic tenderness, no CVA or paraspinal tenderness Extermity/Skin: no c/c/e, no obvious rash MSK: FROM x 4 Neuro: CN 2-12 grossly intact, no new focal deficits Psych: calm - Constitutional Vitals: Temp Pulse Resp BP Pulse Ox 98.2 F 60 16 175/64 98 03/29/19 09:59 03/29/19 10:18 03/29/19 12:36 03/29/19 10:18 03/29/19 12:36 Last Vital Signs Temp 98.6 F 03/30/19 08:12 Pulse 59 L 03/30/19 08:12 Resp 18 03/30/19 08:12 BP 114/48 03/30/19 08:12 Pulse Ox 98 03/30/19 08:12 Plan Activity: other (no strenous activity unless cleared by PCP) Diet: diabetic, renal Special Instructions: record daily BP diary, record blood sugar diary Follow up with: PRIMARY CAREMD [Primary Care Provider] - 3-5 Days TRISTAN VILLALOBOS MD [Staff Physician] - 7 Days DORIS ARDON MD [Staff Physician] - 7 Days Prescriptions: AtorvaSTATin [Lipitor] 0.5 tab PO QHS #30 tab amLODIPine 10 mg PO DAILY #30 tablet hydrALAZINE [Apresoline TAB] 2 tab PO TID 31 Days #120 tablet
--- NOTE | 2019-03-29 20:01 | Event Note ---
5.15 pm Chart reviewed at length, nurse called me late evening around 5 PM patient being admitted with uncontrolled hypertension, And currently on dialysis Wednesday Review of the record since it is late in the evening will order for 2 hours of dialysis today she is on multiple medications She is in need for workup for secondary hypertension Will order testing for hypertension including aldosterone, plasma renin, renal ultrasonogram Will also order for short hemodialysis treatment and possibly tomorrow as well We will adjust blood pressure medication we will reevaluate her tomorrow morning patient will need to make a follow-up appointment in the office upon discharge
[2019-03-29] MEDS ORDERED: SODIUM CHLORIDE 0.9% 100 ML IV PRN (20:27)
[2019-03-29 22:50] LABS: Hepatitis B Surface Antigen Non-Reactive (Negative); Hepatitis C Virus Antibody Non-Reactive (NonReactive)
[2019-03-30] MEDS: hydrALAZINE 25 MG TAB PO SCH (05:20)
--- NOTE | 2019-03-30 08:34 | Consultation ---
History of Present Illness - History of Present Illness Thank you for the consultation Patient was evaluated today My assessment and plan are as follows End-stage renal disease: Patient will continue with hemodialysis treatment, 3 times a week on Wednesday, , Wednesday, schedule. Monitor dialysis related labs. we'll order for dialysis today Uncontrolled hypertension: patient on multiple medications Discontinue hydralazine as she is already on minoxidil, / ? Compliance issue, needs home health She will need follow-up in the office next week, ltrasound has been done, please give her an appointment to be seen in the office Anemia and end-stage renal disease: To monitor and follow. Erythropoietin as required Secondary hyperparathyroidism and bone mineral disorder. Check phosphorus and PTH level periodically Hypertension and volume: Continue to monitor. Goal systolic blood pressure less than 150 for now, ultrafiltration only as tolerated with hemodialysis. Advised to maintain fluid restriction 1200 cc per day Patient is to be on high protein diet due to dialysis status, will benefit from nutritional evaluation and follow-up Multiple other comorbidities; being followed by the primary team ? Mental status changes, ? Due to hypertension? Underlying CVA ? Dementia? Toxic metabolic causes Patient appears to have very limited understanding of her overall health I do have concerns about her safety, her medication administration She will possibly need a home health involvement to find out if she is getting her medications like she should Also discussed with hospital medicine service, we also need to get in touch with capacity planner as well as social security specialist Patient's prognosis in general appears to be poor due to her age and comorbidities I do have concerns about her compliance/medication administration at home and this needs to be addressed prior to discharge Will continue to follow and make recommendation from renal standpoint Source of information; Current chart, old records were also reviewed History of presenting illness; 59-year-old -[place] female who has been admitted here with uncontrolled hypertension, patient does go to [facility] and has been admitted here with uncontrolled hypertension, she does have prior history of stroke, and multiple other comorbidities, she currently dialyzes on Wednesday and Wednesday schedule Her dialysis access is a graft, there is no family member at the bedside Patient has been noted to be alert awake oriented 2 She has been on multiple medication for blood pressure now Upon admission her blood pressure was recorded as high as 212. Vascular access was placed in the ER Past medical history significant for End-stage renal disease Anemia and end-stage renal disease Secondary hyperparathyroidism CVA History of tobacco abuse Right eye blindness Current allergies: None Home medication present medication: Reviewed Social history/family history: Reviewed Review of system very limited, Patient is a very poor historian she does not have good understanding about her health I kept on asking her several time will give some of the medication she would not answer I asked her she was having any chest pain pressure or headache she did not answer either Review of system was very limited due to patient being poor historian? Memory issues, Labs and x-rays: Were reviewed from the current chart Physical examination General: No acute distress HEENT: Oral mucosa moist no pharyngeal erythema no pallor or icterus no uremic order Neck: Supple no evidence of any thyromegaly trachea midline no JVD Chest: Clear to auscultation no crackles are also wheezes anteriorly Heart: Regular rate and rhythm S1-S2 heard no S3-S4 Abdomen: Soft nontender no renal bruit no CVA tenderness no suprapubic fullness no organomegaly Extremity: Minimal edema dry skin no peripheral cyanosis pulses palpable Neurological: Alert awake follows command grossly nonfocal examination Back: Nontender thoracolumbar spine Musculoskeletal: No joint effusion noted Skin: No petechial rash/noted If you have any questions please feel free to contact me at [phone] Medications and Allergies Allergies Allergy/AdvReac Type Severity Reaction Status Date / Time No Known Allergies Allergy Unverified 06/22/16 20:11 Home Medications Medication Instructions Recorded Confirmed Last Taken Type Ondansetron [Zofran ODT TAB] 4 mg PO Q8HR PRN #20 tab.rapdis 03/15/19 03/28/19 Unknown Rx Acetaminophen [Acetaminophen TAB] 325 mg PO Q4H PRN #15 tablet 03/29/19 Unknown Rx AtorvaSTATin [Lipitor] 0.5 tab PO QHS #30 tab 03/29/19 Unknown Rx Metoprolol Xl [Metoprolol 100 mg PO QDAY #30 tablet 03/29/19 Unknown Rx SUCCINATE ER TAB] Minoxidil [Loniten] 2.5 mg PO BID #60 tablet 03/29/19 03/28/19 Unknown Rx Pantoprazole [Protonix TAB] 20 mg PO QDAY #30 tablet. 03/29/19 03/28/19 Unknown Rx Sertraline [Zoloft] 50 mg PO QDAY #30 tablet 03/29/19 03/28/19 Unknown Rx Sevelamer Carbonate [Renvela] 800 mg PO TIDWM #90 tablet 03/29/19 03/28/19 Unknown Rx Valsartan [Diovan] 320 mg PO QDAY #30 03/29/19 03/28/19 Unknown Rx amLODIPine 10 mg PO DAILY #30 tablet 03/29/19 Unknown Rx hydrALAZINE [Apresoline TAB] 2 tab PO TID 31 Days #120 tablet 03/29/19 Unknown Rx Active Meds: Active Medications Acetaminophen (Tylenol) 650 mg PO Q4H PRN PRN Reason: Pain MILD(1-3)/Fever >100.5/POWERS Amlodipine Besylate (Amlodipine) 10 mg PO DAILY [facility] Last Admin: 03/29/19 10:18 Dose: 10 mg Documented by: Atorvastatin Calcium (Lipitor) 10 mg PO QHS [facility] Last Admin: 03/29/19 23:58 Dose: 10 mg Documented by: Heparin Sodium (Porcine) (Heparin) 5,000 unit SUB-Q Q12HR [facility] Last Admin: 03/29/19 23:58 Dose: 5,000 unit Documented by: Hydralazine HCl (Apresoline) 10 mg IV Q3H PRN PRN Reason: Blood Pressure Hydralazine HCl (Apresoline) 50 mg PO Q8HR [facility] Last Admin: 03/30/19 05:20 Dose: 50 mg Documented by: Hydromorphone HCl (Dilaudid) 0.5 mg IV Q3H PRN PRN Reason: Pain , Severe (7-10) Sodium Chloride (Nacl 0.9%) 100 mls @ 999 mls/hr IV PARMJIT PRN PRN Reason: Hypotension Metoclopramide HCl (Reglan) 5 mg PO QID PRN PRN Reason: Nausea And Vomiting Metoprolol Succinate (Metoprolol Xl) 100 mg PO QDAY [facility] Minoxidil (Loniten) 2.5 mg PO BID [facility] Last Admin: 03/29/19 23:58 Dose: 2.5 mg Documented by: Ondansetron HCl (Zofran Odt) 4 mg PO Q8HR PRN PRN Reason: Nausea Ondansetron HCl (Zofran) 4 mg IV Q8H PRN PRN Reason: Nausea And Vomiting Oxycodone/Acetaminophen (Percocet 5/325) 1 tab PO Q6H PRN PRN Reason: Pain, Moderate (4-6) Pantoprazole Sodium (Protonix) 20 mg PO QDAY [facility] Last Admin: 03/29/19 10:16 Dose: 20 mg Documented by: Sertraline HCl (Zoloft) 50 mg PO QDAY [facility] Last Admin: 03/29/19 10:16 Dose: 50 mg Documented by: Sevelamer Carbonate (Renvela) 800 mg PO TIDWM [facility] Last Admin: 03/29/19 17:17 Dose: 800 mg Documented by: Sodium Chloride (Sodium Chloride Flush Syringe 10 Ml) 10 ml IV BID [facility] Last Admin: 03/30/19 00:00 Dose: 10 ml Documented by: Sodium Chloride (Sodium Chloride Flush Syringe 10 Ml) 10 ml IV PRN PRN PRN Reason: LINE FLUSH Valsartan (Diovan) 320 mg PO QDAY [facility] Last Admin: 03/29/19 10:17 Dose: 320 mg Documented by: Exam - Vital Signs Vital signs: Vital Signs Temp Pulse Resp BP Pulse Ox 97.7 F 63 17 211/87 100 03/28/19 08:44 03/28/19 08:44 03/28/19 08:44 03/28/19 08:44 03/28/19 08:44 Results - Lab Results 03/29/19 07:39 03/29/19 07:39 Most recent lab results Calcium 8.9 mg/dL (8.4-10.2) 03/29/19 07:39
[2019-03-30] MEDS: SEVELAMER CARBONATE 800 MG TAB PO SCH ×3 (08:40→17:59)
--- NOTE | 2019-03-30 09:53 | Ultrasound Report ---
ULTRASOUND RENAL INDICATION: Hypertension. COMPARISON: CT abdomen without contrast 03/15/2019. FINDINGS: RIGHT KIDNEY: Size: 9.6 cm. Echogenicity: Echogenic. Cortical thickness: Normal. Hydronephrosis: None. Cyst or mass: Small 1.2 cm right renal cyst with thin internal septation. Stones: None. LEFT KIDNEY: Size: 8.6 cm. Echogenicity: Echogenic. Cortical thickness: Normal. Hydronephrosis: None. Cyst or mass: 1.2 x 1.4 x 1.2 cm simple left renal cyst. Stones: None. Urinary Bladder: Diffusely thickened bladder wall measuring 5 mm. Free Fluid: None. Additional Findings: None. IMPRESSION 1. Atrophic echogenic kidneys characteristic for chronic medical renal disease. No hydronephrosis. 2. Bilateral renal cysts. No further follow-up is necessary. 3. Thickened urinary bladder wall., unchanged maybe secondary to cystitis or chronic bladder outlet o bstruction. 4. No urinary tract calculi visualized sonographically. The bilateral renal calcifications described on the CT likely represent intrarenal vascular calcifications. Signer Name: Dewey Armenta MD Signed: 03/30/2019 9:48 AM Workstation Name: [id number]
[2019-03-30] MEDS: VALSARTAN 160MG TAB PO SCH (10:21)
[2019-03-30] MEDS: SERTRALINE 50 MG TAB PO SCH (10:21)
[2019-03-30] MEDS: PANTOPRAZOLE 20 MG TAB PO SCH (10:21)
[2019-03-30] MEDS: MINOXIDIL 2.5 MG TAB PO SCH ×2 (10:21→22:06)
[2019-03-30] MEDS: METOPROLOL SUCCINATE XL 100 MG TAB PO SCH (10:22)
[2019-03-30] MEDS: HEPARIN 5,000 UNIT/1 ML VIAL SUB-Q SCH ×2 (10:22→22:04)
[2019-03-30] MEDS: amLODIPine 10 MG TAB PO SCH (10:22)
[2019-03-30] MEDS ORDERED: SODIUM CHLORIDE 0.9% 100 ML IV PRN (11:51)
--- NOTE | 2019-03-31 06:18 | Progress Note ---
Assessment and Plan Assessment and plan: Patient is a 59 yo woman with a history of ESRD on HD, AOCD, hypertension, DM type 2, GERD and hypertension who presented with uncontrolled hypertension. Malignant Uncontrolled hypertension with urgency requiring multiple iv doses of hydralazine: Toprol XL held due to HR 60, will decrease toprol and increase hydralazine ESRD on HD: consulted Nephrology Type 2 DM: accucheck, ada, ssi AOCD: monitor cbc closely Mild Malnutrition, poa: consult Compress Trucker DVT ppx: sq heparin d/c after hemodialysis History Interval history: Patient was seen and examined. Follow-up on current diagnosis of Uncontrolled hypertension. No overnight events reported to me. Patient denies any chest pain, shortness breath, nausea/vomiting or severe headaches. Imaging, nursing note, chart, labs and old chart reviewed. Discussed with patient. Hospitalist Physical - Physical exam Narrative exam: Gen: thin frail, bmi 18.5, NAD, Awake, Alert, Orientated HEENT: NCAT, EOMI, PERRL, OP Clear Neck: supple, no adenopathy, no thyromegaly, no JVD CVS/Heart: RRR, normal S1S2, pulses present bilaterally Chest/Lungs: CTA B, Symmetrical chest expansion, good air entry bilaterally GI/Abdomen: soft, NTND, good bowel sounds, no guarding or rebound /Bladder: no suprapubic tenderness, no CVA or paraspinal tenderness Extermity/Skin: no c/c/e, no obvious rash MSK: FROM x 4 Neuro: CN 2-12 grossly intact, no new focal deficits Psych: calm - Constitutional Vitals: Temp Pulse Resp BP Pulse Ox 98.6 F 62 20 136/57 99 03/31/19 04:00 03/31/19 04:10 03/31/19 04:00 03/31/19 04:00 03/31/19 04:00 Results - Labs CBC & Chem 7: 03/29/19 07:39 03/29/19 07:39 Labs: Laboratory Last Values WBC 7.4 K/mm3 (4.5-11.0) 03/29/19 07:39 RBC 3.66 M/mm3 (3.65-5.03) 03/29/19 07:39 Hgb 11.1 gm/dl (10.1-14.3) 03/29/19 07:39 Hct 34.3 % (30.3-42.9) 03/29/19 07:39 MCV 94 fl (79-97) 03/29/19 07:39 MCH 30 pg (28-32) 03/29/19 07:39 MCHC 32 % (30-34) 03/29/19 07:39 RDW 15.7 % (13.2-15.2) H 03/29/19 07:39 Plt Count 150 K/mm3 (140-440) 03/29/19 07:39 Lymph % (Auto) 20.7 % (13.4-35.0) 03/29/19 07:39 [place] % (Auto) 7.5 % (0.0-7.3) H 03/29/19 07:39 Eos % (Auto) 3.0 % (0.0-4.3) 03/29/19 07:39 Baso % (Auto) 1.1 % (0.0-1.8) 03/29/19 07:39 Lymph # 1.5 K/mm3 (1.2-5.4) 03/29/19 07:39 [place] # 0.6 K/mm3 (0.0-0.8) 03/29/19 07:39 Eos # 0.2 K/mm3 (0.0-0.4) 03/29/19 07:39 Baso # 0.1 K/mm3 (0.0-0.1) 03/29/19 07:39 Seg Neutrophils % 67.7 % (40.0-70.0) 03/29/19 07:39 Seg Neutrophils # 5.0 K/mm3 (1.8-7.7) 03/29/19 07:39 Sodium 141 mmol/L (137-145) 03/29/19 07:39 Potassium 4.5 mmol/L (3.6-5.0) 03/29/19 07:39 Chloride 100.2 mmol/L (98-107) 03/29/19 07:39 Carbon Dioxide 23 mmol/L (22-30) 03/29/19 07:39 Anion Gap 22 mmol/L 03/29/19 07:39 BUN 72 mg/dL (7-17) H 03/29/19 07:39 Creatinine 7.6 mg/dL (0.7-1.2) H 03/29/19 07:39 Estimated GFR 7 ml/min 03/29/19 07:39 BUN/Creatinine Ratio 9 % 03/29/19 07:39 Glucose 127 mg/dL (65-100) H 03/29/19 07:39 POC Glucose 108 (70-105) H 03/28/19 18:36 Hemoglobin A1c 4.7 % (4-6) 03/28/19 09:17 Calcium 8.9 mg/dL (8.4-10.2) 03/29/19 07:39 Total Bilirubin 0.30 mg/dL (0.1-1.2) 03/29/19 07:39 AST 14 units/L (5-40) 03/29/19 07:39 ALT 8 units/L (7-56) 03/29/19 07:39 Alkaline Phosphatase 74 units/L (35-129) 03/29/19 07:39 Total Protein 6.8 g/dL (6.3-8.2) 03/29/19 07:39 Albumin 3.8 g/dL (3.9-5) L 03/29/19 07:39 Albumin/Globulin Ratio 1.3 % 03/29/19 07:39 Hepatitis A IgM Ab Non-reactive (NonReactive) 03/29/19 22:00 Hep Bs Antigen Non-reactive (Negative) 03/29/19 22:00 Hep B Core IgM Ab Non-reactive (NonReactive) 03/29/19 22:00 Hepatitis C Antibody Non-reactive (NonReactive) 03/29/19 22:00 Active Medications - Current Medications Current Medications: Generic Name Dose Route Start Last Admin Trade Name Freq PRN Reason Stop Dose Admin Acetaminophen 650 mg 03/28/19 17:46 Tylenol PO Q4H PRN Pain MILD(1-3)/Fever >100.5/POWERS Amlodipine Besylate 10 mg 03/28/19 18:00 03/30/19 10:22 Amlodipine PO 10 mg DAILY SALTY Administration Atorvastatin Calcium 10 mg 03/28/19 22:00 03/30/19 22:04 Lipitor PO 10 mg QHS SALTY Administration Heparin Sodium (Porcine) 5,000 unit 03/28/19 22:00 03/30/19 22:04 Heparin SUB-Q 5,000 unit Q12HR SALTY Administration Hydralazine HCl 10 mg 03/28/19 17:52 Apresoline IV Q3H PRN Blood Pressure Hydromorphone HCl 0.5 mg 03/28/19 17:46 Dilaudid IV Q3H PRN Pain , Severe (7-10) Sodium Chloride 100 mls @ 999 mls/hr 03/30/19 11:51 Nacl 0.9% IV PARMJIT PRN Hypotension Metoclopramide HCl 5 mg 03/28/19 17:44 Reglan PO QID PRN Nausea And Vomiting Metoprolol Succinate 100 mg 03/30/19 10:00 03/30/19 10:22 Metoprolol Xl PO 100 mg QDAY SALTY Administration Minoxidil 2.5 mg 03/28/19 22:00 03/30/19 22:06 Loniten PO 2.5 mg BID SALTY Administration Ondansetron HCl 4 mg 03/28/19 17:44 Zofran Odt PO Q8HR PRN Nausea Ondansetron HCl 4 mg 03/28/19 17:46 Zofran IV Q8H PRN Nausea And Vomiting Oxycodone/Acetaminophen 1 tab 03/28/19 17:46 Percocet 5/325 PO Q6H PRN Pain, Moderate (4-6) Pantoprazole Sodium 20 mg 03/28/19 18:00 03/30/19 10:21 Protonix PO 20 mg QDAY SALTY Administration Sertraline HCl 50 mg 03/28/19 18:00 03/30/19 10:21 Zoloft PO 50 mg QDAY SALTY Administration Sevelamer Carbonate 800 mg 03/29/19 08:00 03/30/19 17:59 Renvela PO Not Given TIDWM SALTY Sodium Chloride 10 ml 03/28/19 22:00 03/30/19 22:06 Sodium Chloride Flush Syringe 10 Ml IV 10 ml BID SALTY Administration Sodium Chloride 10 ml 03/28/19 17:46 Sodium Chloride Flush Syringe 10 Ml IV PRN PRN LINE FLUSH Valsartan 320 mg 03/28/19 18:00 03/30/19 10:21 Diovan PO 320 mg QDAY SALTY Administration Nutrition/Malnutrition Assess - Dietary Evaluation Nutrition/Malnutrition Findings: Nutrition Notes Start: 03/29/19 14:11 Freq: Status: Active Protocol: Document 03/29/19 14:11 RM (Rec: 03/29/19 14:20 RM [id number]) Nutrition Notes Need for Assessment generated from: Low BMI Initial or Follow up Assessment Current Diagnosis Diabetes,Hyperlipidemia Other Pertinent Diagnosis Hx CVAs, Dementia, GERD, ESRD on HD Current Diet Renal Labs/Tests Reviewed Pertinent Medications Reviewed Height 5 ft 4 in Weight 48.8 kg [place] Body Weight (kg) 54.54 BMI 18.4 Weight change and time frame Current wt obtained from bedside. Admission wt likely inaccurate. Subjective/Other Information Screened for low BMI. Pt and pt nurse in room at time of visit. Per nurse pt ate 50% of breakfast but chews and drinks slowly. Noted pt contracted and lacking upper teeth. Noted moderate temporal wasting. Burn Absent Trauma Absent Minimum of two criteria No #1 Nutrition Diagnosis Inadequate oral intake Etiology possible chewing difficulty As Evidenced by Signs and Symptoms pt nurse statement that pt ate 50% of breakfast Is patient on ventilator? No Is Patient Ambulatory and/or Out of Bed No REE-([place]-confined to bed) 1250.868 Kcal/Kg value to use for calculation 36 Approximate Energy Requirements Using 1757 kcal/Kg Calculation Used for Recommendations Kcal/kg Additional Notes Protein Needs: 58g (>1.2g/kg) Fluid Needs: 1 ml/kcal Nutrition Intervention Change Diet Order: Renal, Mech soft w/ground meat Add Supplement/Snack (indicate name/kcal Nepro 1 daily /protein ) Provides kCal: 425 Provides Protein (gm) 19 Goal #1 Meet at least 75% of calorie and protein needs via PO and ONS intakes Goal #2 Wt gain/maintenance Anticipated Discharge Needs: Renal diet Follow-Up By: 03/31/19 Additional Comments Follow for PO and ONS intakes
--- NOTE | 2019-03-31 08:39 | Progress Note ---
Assessment and Plan Assessment: * End stage renal disease on HD * Accelerated hypertension * Type II DM * Anemia secondary to ESRD * Secondary hyperparathyroidism Plan: * Patient is s/p HD on Wed and * Resume MWF schedule today * UF as tolerated * BP is controlled - continue current regimen * Epogen TIW prn * Renal diet * Binders with meals * Stable for d/c following dialysis today Subjective Date of service: 03/31/19 Interval history: Patient reports that she is "hungry". Currently being fed breakfast by RN. Objective - Vital Signs Vital signs: Vital Signs - 12hr 03/30/19 03/31/19 03/31/19 22:10 03:55 04:00 Temperature 98.4 F 98.6 F Pulse Rate 66 Pulse Rate [ 64 Apical] Respiratory 20 20 20 Rate Blood Pressure 136/57 Blood Pressure 136/57 [Right] O2 Sat by Pulse 100 99 Oximetry 03/31/19 03/31/19 04:10 08:16 Temperature 98.0 F Pulse Rate 62 60 Pulse Rate [ Apical] Respiratory 18 Rate Blood Pressure 111/50 Blood Pressure [Right] O2 Sat by Pulse 99 Oximetry - General Appearance General appearance: frail EENT: ATNC Neck: no JVD Respiratory: Present: Clear to Ascultation Cardiology: regular, S1S2 Gastrointestinal: normal, no tenderness, no distended Musculoskeletal: other (no edema) Psychiatric: cooperative - Lab 03/29/19 07:39 03/29/19 07:39 Most recent lab results Calcium 8.9 mg/dL (8.4-10.2) 03/29/19 07:39 Medications & Allergies - Medications Allergies/Adverse Reactions: Allergies No Known Allergies Allergy (Unverified 06/22/16 20:11) Home Medications: Home Medications Medication Instructions Recorded Confirmed Last Taken Type Ondansetron [Zofran ODT TAB] 4 mg PO Q8HR PRN #20 tab.rapdis 03/15/19 03/28/19 Unknown Rx Acetaminophen [Acetaminophen TAB] 325 mg PO Q4H PRN #15 tablet 03/29/19 Unknown Rx AtorvaSTATin [Lipitor] 0.5 tab PO QHS #30 tab 03/29/19 Unknown Rx Metoprolol Xl [Metoprolol 100 mg PO QDAY #30 tablet 03/29/19 Unknown Rx SUCCINATE ER TAB] Minoxidil [Loniten] 2.5 mg PO BID #60 tablet 03/29/19 03/28/19 Unknown Rx Pantoprazole [Protonix TAB] 20 mg PO QDAY #30 tablet. 03/29/19 03/28/19 Unknown Rx Sertraline [Zoloft] 50 mg PO QDAY #30 tablet 03/29/19 03/28/19 Unknown Rx Sevelamer Carbonate [Renvela] 800 mg PO TIDWM #90 tablet 03/29/19 03/28/19 Unknown Rx Valsartan [Diovan] 320 mg PO QDAY #30 03/29/19 03/28/19 Unknown Rx amLODIPine 10 mg PO DAILY #30 tablet 03/29/19 Unknown Rx hydrALAZINE [Apresoline TAB] 2 tab PO TID 31 Days #120 tablet 03/29/19 Unknown Rx Active Medications: Generic Name Dose Route Start Last Admin Trade Name Freq PRN Reason Stop Dose Admin Acetaminophen 650 mg 03/28/19 17:46 Tylenol PO Q4H PRN Pain MILD(1-3)/Fever >100.5/POWERS Amlodipine Besylate 10 mg 03/28/19 18:00 03/30/19 10:22 Amlodipine PO 10 mg DAILY SALTY Administration Atorvastatin Calcium 10 mg 03/28/19 22:00 03/30/19 22:04 Lipitor PO 10 mg QHS SALTY Administration Heparin Sodium (Porcine) 5,000 unit 03/28/19 22:00 03/30/19 22:04 Heparin SUB-Q 5,000 unit Q12HR SALTY Administration Hydralazine HCl 10 mg 03/28/19 17:52 Apresoline IV Q3H PRN Blood Pressure Hydromorphone HCl 0.5 mg 03/28/19 17:46 Dilaudid IV Q3H PRN Pain , Severe (7-10) Sodium Chloride 100 mls @ 999 mls/hr 03/30/19 11:51 Nacl 0.9% IV PARMJIT PRN Hypotension Metoclopramide HCl 5 mg 03/28/19 17:44 Reglan PO QID PRN Nausea And Vomiting Metoprolol Succinate 100 mg 03/30/19 10:00 03/30/19 10:22 Metoprolol Xl PO 100 mg QDAY SALTY Administration Minoxidil 2.5 mg 03/28/19 22:00 03/30/19 22:06 Loniten PO 2.5 mg BID SALTY Administration Ondansetron HCl 4 mg 03/28/19 17:44 Zofran Odt PO Q8HR PRN Nausea Ondansetron HCl 4 mg 03/28/19 17:46 Zofran IV Q8H PRN Nausea And Vomiting Oxycodone/Acetaminophen 1 tab 03/28/19 17:46 Percocet 5/325 PO Q6H PRN Pain, Moderate (4-6) Pantoprazole Sodium 20 mg 03/28/19 18:00 03/30/19 10:21 Protonix PO 20 mg QDAY SALTY Administration Sertraline HCl 50 mg 03/28/19 18:00 03/30/19 10:21 Zoloft PO 50 mg QDAY SALTY Administration Sevelamer Carbonate 800 mg 03/29/19 08:00 03/30/19 17:59 Renvela PO Not Given TIDWM SALTY Sodium Chloride 10 ml 03/28/19 22:00 03/30/19 22:06 Sodium Chloride Flush Syringe 10 Ml IV 10 ml BID SALTY Administration Sodium Chloride 10 ml 03/28/19 17:46 Sodium Chloride Flush Syringe 10 Ml IV PRN PRN LINE FLUSH Valsartan 320 mg 03/28/19 18:00 03/30/19 10:21 Diovan PO 320 mg QDAY SALTY Administration
[2019-03-31] MEDS ORDERED: SODIUM CHLORIDE 0.9% 100 ML IV PRN (09:00)
[2019-03-31] MEDS: METOPROLOL SUCCINATE XL 100 MG TAB PO SCH (09:19)
[2019-03-31] MEDS: SERTRALINE 50 MG TAB PO SCH (09:19)
[2019-03-31] MEDS: VALSARTAN 160MG TAB PO SCH (09:19)
[2019-03-31] MEDS: SEVELAMER CARBONATE 800 MG TAB PO SCH ×2 (09:19→12:51)
[2019-03-31] MEDS: PANTOPRAZOLE 20 MG TAB PO SCH (09:19)
[2019-03-31] MEDS: MINOXIDIL 2.5 MG TAB PO SCH (09:19)
[2019-03-31] MEDS: amLODIPine 10 MG TAB PO SCH (09:19)
[2019-03-31] MEDS: HEPARIN 5,000 UNIT/1 ML VIAL SUB-Q SCH (09:20)
[2019-03-31 14:48] VITALS: BP 119/56
== END 2019-03-31 16:49 | disposition home or self-care (01) ==
LOC: ED 08:26 → 4A 17:46
PROVIDERS: ADMIT Internal Medicine; ATTEND Internal Medicine
DX: I16.0 Hypertensive urgency (principal); I12.0 Hypertensive chronic kidney disease with stage 5 chronic kidney disease or end stage renal disease; N18.6 End stage renal disease; E21.3 Hyperparathyroidism, unspecified; E78.5 Hyperlipidemia, unspecified; K21.9 Gastro-esophageal reflux disease without esophagitis; E11.22 Type 2 diabetes mellitus with diabetic chronic kidney disease; R13.10 Dysphagia, unspecified; Z87.891 Personal history of nicotine dependence
CPT/HCPCS: 36415; 71045; 76770; 80048; 80053; 80074; 82088; 82962; 83036; 85025; 92526; 92610; 99284; A9270; G0257; G0378; J0360; J1644; J3246

== ENCOUNTER 2019-04-13 09:23 | Outpatient (CLI) | payer MEDICARE ==
--- NOTE | 2019-04-13 10:58 | Fluoroscopy Report ---
Limited barium swallow Indication: R11.2 NAUSEA VOMITING/R13.10 DYSPHAGIA/WEIGHT LOSS. Technique: Single contrast barium technique utilized to evaluate the esophagus. Findings: The patient had very limited mobility and was unable to stand. I tilt of the patient to 45 degrees and performed a single contrast examination. Using thin barium, I evaluated the esophagus and stomach. There was no mass, mass effect, or critical stenosis. There were occasional abnormal tertiary contractions as seen with dysmotility. No gastroes ophageal reflux. Impression: Limited examination with mild esophageal dysmotility. Fluoroscopic time: 0.4 minutes Number of fluoroscopic images: 8 Signer Name: Medhat Yates MD Signed: 04/13/2019 10:54 AM Workstation Name: [id number]
== END 2019-04-13 09:24 | disposition home or self-care (01) ==
LOC: FLUORO 09:23
PROVIDERS: ATTEND Internal Medicine Gastroenterology
DX: R11.2 Nausea with vomiting, unspecified (principal); R13.10 Dysphagia, unspecified; R63.4 Abnormal weight loss; K21.9 Gastro-esophageal reflux disease without esophagitis; E78.00 Pure hypercholesterolemia, unspecified; I13.0 Hypertensive heart and chronic kidney disease with heart failure and stage 1 through stage 4 chronic kidney disease, or unspecified chronic kidney disease; E11.22 Type 2 diabetes mellitus with diabetic chronic kidney disease; N18.6 End stage renal disease; Z86.73 Personal history of transient ischemic attack (TIA), and cerebral infarction without residual deficits; Z87.891 Personal history of nicotine dependence
CPT/HCPCS: 74220

== ENCOUNTER 2019-04-20 19:06 | Emergency (ER) | payer MEDICARE ==
[2019-04-20] MEDS ORDERED: ONDANSETRON 4 MG/2 ML INJ IV ONE (20:06)
[2019-04-20] MEDS ORDERED: PANTOPRAZOLE 40 MG INJ IV ONE (20:10)
--- NOTE | 2019-04-20 20:10 | Emergency Department Report ---
ED General Adult HPI - General Stated complaint: EMESIS Time Seen by Provider: 04/20/19 20:00 - History of Present Illness Initial comments: Patient is 59 years old female with history of end-stage renal disease on hemodialysis, compliant with his dialysis. Patient also have history of CVA, very contracted, dementia. Patient brought to the emergency room via EMS accompanied by her son who stated that she has been vomiting since December. He stated that she vomited twice today. Patient son stated that she vomits after she eats. He stated that she had a barium swallow last week in was told it was normal. Patient son stated that she has been followed by gastroenterology and scheduled upper endoscopy for high next week. Patient is alert and answering questions appropriately. She denied any fever or chills. No chest pain or shortness of breath. Patient also denied any abdominal pain. Severity scale (0 -10): 0 - Related Data Previous Rx's Medication Instructions Recorded Last Taken Type Ondansetron [Zofran ODT TAB] 4 mg PO Q8HR PRN #20 tab.rapdis 03/15/19 Unknown Rx Acetaminophen [Acetaminophen TAB] 325 mg PO Q4H PRN #15 tablet 03/29/19 Unknown Rx AtorvaSTATin [Lipitor] 0.5 tab PO QHS #30 tab 03/29/19 Unknown Rx Metoprolol Xl [Metoprolol 100 mg PO QDAY #30 tablet 03/29/19 Unknown Rx SUCCINATE ER TAB] Minoxidil [Loniten] 2.5 mg PO BID #60 tablet 03/29/19 Unknown Rx Pantoprazole [Protonix TAB] 20 mg PO QDAY #30 tablet. 03/29/19 Unknown Rx Sertraline [Zoloft] 50 mg PO QDAY #30 tablet 03/29/19 Unknown Rx Sevelamer Carbonate [Renvela] 800 mg PO TIDWM #90 tablet 03/29/19 Unknown Rx Valsartan [Diovan] 320 mg PO QDAY #30 03/29/19 Unknown Rx amLODIPine 10 mg PO DAILY #30 tablet 03/29/19 Unknown Rx hydrALAZINE [Apresoline TAB] 2 tab PO TID 31 Days #120 tablet 03/29/19 Unknown Rx Metoclopramide HCl [Reglan TAB] 5 mg PO TID PRN #20 tablet 04/20/19 Unknown Rx Allergies Allergy/AdvReac Type Severity Reaction Status Date / Time No Known Allergies Allergy Unverified 06/22/16 20:11 ED Review of Systems ROS: Stated complaint: EMESIS Other details as noted in HPI Comment: All other systems reviewed and negative Constitutional: denies: chills, fever Respiratory: denies: cough, shortness of breath, SOB with exertion Cardiovascular: denies: chest pain, palpitations Gastrointestinal: nausea, vomiting. denies: abdominal pain, diarrhea, constipation, hematemesis, melena, hematochezia Musculoskeletal: denies: back pain ED Past Medical Hx - Past Medical History Hx Hypertension: Yes Hx Congestive Heart Failure: No Hx Diabetes: Yes Hx GERD: Yes Hx Renal Disease: Yes (MWF) Hx Asthma: No Hx COPD: No Hx HIV: No Additional medical history: Hyperparathyroidism. Anemia - Surgical History Additional Surgical History: Blind Right eye - Social History Smoking Status: Former Smoker Substance Use Type: None - Medications Home Medications: Home Medications Medication Instructions Recorded Confirmed Last Taken Type Ondansetron [Zofran ODT TAB] 4 mg PO Q8HR PRN #20 tab.rapdis 03/15/19 03/28/19 Unknown Rx Acetaminophen [Acetaminophen TAB] 325 mg PO Q4H PRN #15 tablet 03/29/19 Unknown Rx AtorvaSTATin [Lipitor] 0.5 tab PO QHS #30 tab 03/29/19 Unknown Rx Metoprolol Xl [Metoprolol 100 mg PO QDAY #30 tablet 03/29/19 Unknown Rx SUCCINATE ER TAB] Minoxidil [Loniten] 2.5 mg PO BID #60 tablet 03/29/19 03/28/19 Unknown Rx Pantoprazole [Protonix TAB] 20 mg PO QDAY #30 tablet. 03/29/19 03/28/19 Unknown Rx Sertraline [Zoloft] 50 mg PO QDAY #30 tablet 03/29/19 03/28/19 Unknown Rx Sevelamer Carbonate [Renvela] 800 mg PO TIDWM #90 tablet 03/29/19 03/28/19 Unknown Rx Valsartan [Diovan] 320 mg PO QDAY #30 03/29/19 03/28/19 Unknown Rx amLODIPine 10 mg PO DAILY #30 tablet 03/29/19 Unknown Rx hydrALAZINE [Apresoline TAB] 2 tab PO TID 31 Days #120 tablet 03/29/19 Unknown Rx Metoclopramide HCl [Reglan TAB] 5 mg PO TID PRN #20 tablet 04/20/19 Unknown Rx ED Physical Exam - General General appearance: alert, in no apparent distress - Head Head exam: Present: atraumatic, normocephalic, normal inspection - Eye Eye exam: Present: normal appearance - ENT ENT exam: Present: normal exam, normal orophraynx, mucous membranes moist. Absent: mucous membranes dry - Neck Neck exam: Present: normal inspection, full ROM. Absent: tenderness, meningismus - Respiratory Respiratory exam: Present: normal lung sounds bilaterally - Cardiovascular Cardiovascular Exam: Present: regular rate, normal rhythm, normal heart sounds - GI/Abdominal GI/Abdominal exam: Present: soft, normal bowel sounds. Absent: distended, tenderness, guarding, rebound, rigid, organomegaly, mass, bruit, pulsatile mass, hernia - Extremities Exam Extremities exam: Present: normal inspection, full ROM, normal capillary refill - Back Exam Back exam: Present: normal inspection, full ROM. Absent: CVA tenderness (R), CVA tenderness (L), muscle spasm, paraspinal tenderness, vertebral tenderness - Neurological Exam Neurological exam: Present: alert, oriented X3, normal gait - Skin Skin exam: Present: warm, intact, normal color ED Course Vital Signs 04/20/19 04/20/19 04/20/19 19:37 19:41 19:46 Temperature 98.6 F Pulse Rate 60 61 Respiratory 15 18 Rate Blood Pressure 176/63 Blood Pressure 176/63 [Right] O2 Sat by Pulse 100 100 100 Oximetry 04/20/19 04/20/19 04/20/19 20:00 20:16 20:30 Temperature Pulse Rate 61 63 60 Respiratory 14 15 11 L Rate Blood Pressure 176/63 142/74 142/74 Blood Pressure [Right] O2 Sat by Pulse 100 99 97 Oximetry 04/20/19 04/20/19 04/20/19 20:46 21:00 21:15 Temperature Pulse Rate 62 60 61 Respiratory 11 L 10 L 13 Rate Blood Pressure 142/74 142/74 156/69 Blood Pressure [Right] O2 Sat by Pulse 97 97 96 Oximetry 04/20/19 04/20/19 04/20/19 21:30 21:46 22:00 Temperature Pulse Rate 62 60 61 Respiratory 16 12 14 Rate Blood Pressure 160/103 Blood Pressure [Right] O2 Sat by Pulse 98 96 99 Oximetry 04/20/19 04/20/19 04/20/19 22:11 22:16 22:30 Temperature Pulse Rate 61 61 Respiratory 18 14 14 Rate Blood Pressure 160/103 160/103 Blood Pressure [Right] O2 Sat by Pulse 98 97 93 Oximetry 04/20/19 04/20/19 04/20/19 22:44 22:46 23:00 Temperature Pulse Rate 61 61 59 L Respiratory 9 L 12 12 Rate Blood Pressure 160/103 160/103 164/67 Blood Pressure [Right] O2 Sat by Pulse 98 97 96 Oximetry 04/20/19 04/20/19 04/20/19 23:16 23:30 23:46 Temperature Pulse Rate 59 L 59 L 61 Respiratory 11 L 12 11 L Rate Blood Pressure 164/67 164/67 164/67 Blood Pressure [Right] O2 Sat by Pulse 97 96 97 Oximetry 04/21/19 04/21/19 04/21/19 00:00 00:16 00:30 Temperature Pulse Rate 59 L 58 L 57 L Respiratory 14 14 13 Rate Blood Pressure 150/66 150/66 150/66 Blood Pressure [Right] O2 Sat by Pulse 93 94 96 Oximetry 04/21/19 04/21/19 04/21/19 00:46 01:00 01:16 Temperature Pulse Rate 58 L 58 L 58 L Respiratory 10 L 13 12 Rate Blood Pressure 150/66 151/72 151/72 Blood Pressure [Right] O2 Sat by Pulse 96 98 92 Oximetry 04/21/19 04/21/19 04/21/19 01:30 01:46 02:00 Temperature Pulse Rate 57 L 57 L 58 L Respiratory 15 12 20 Rate Blood Pressure 151/72 151/72 143/68 Blood Pressure [Right] O2 Sat by Pulse 100 96 94 Oximetry 04/21/19 02:16 Temperature Pulse Rate 57 L Respiratory 15 Rate Blood Pressure 143/68 Blood Pressure [Right] O2 Sat by Pulse 93 Oximetry - EJ/Peripheral Line Neck R Time Out Performed: Yes Indications: nurses unable to establis Skin Cleansed in Sterile Fashion: Yes Size: 18 Dressing Placed: Tegaderm, tape Patient Tolerated Procedure: well, no complications ED Medical Decision Making - Lab Data Result diagrams: 04/20/19 20:43 04/20/19 20:43 - Medical Decision Making Patient is 59 years old female with history of end-stage renal disease on hemodialysis, compliant with his dialysis. Patient also have history of CVA, very contracted, dementia. Patient brought to the emergency room via EMS accompanied by her son who stated that she has been vomiting since December. He stated that she vomited twice today. Patient son stated that she vomits after she eats. He stated that she had a barium swallow last week in was told it was normal. Patient son stated that she has been followed by gastroenterology and scheduled upper endoscopy for high next week. Patient is alert and answering questions appropriately. She denied any fever or chills. No chest pain or shortness of breath. Patient also denied any abdominal pain. Patient received Zofran IV and Protonix. No vomiting observed in the ER. Labs reviewed and is unremarkable. Recent son advised to keep the patient appointment with gastroenterology. Patient son also advised to return to the ER if symptoms are not improved. Critical care attestation.: If time is entered above; I have spent that time in minutes in the direct care of this critically ill patient, excluding procedure time. ED Disposition Clinical Impression: Nausea & vomiting Disposition: DC-01 TO HOME OR SELFCARE Is pt being admited?: No Condition: Stable Instructions: Acute Nausea and Vomiting (ED) Prescriptions: Metoclopramide HCl [Reglan TAB] 5 mg PO TID PRN #20 tablet PRN Reason: Vomiting Referrals: MARIAH HANEY [Other] - 3-5 Days
[2019-04-20 21:19] LABS: Basophils # (Auto) 0.1 K/mm3 (0.0-0.1); Basophils % (Auto) 2.6 % (0.0-1.8); Eosinophils # (Auto) 0.1 K/mm3 (0.0-0.4); Eosinophils % (Auto) 1.2 % (0.0-4.3); Hematocrit 33.1 % (30.3-42.9); Hemoglobin 10.9 gm/dl (10.1-14.3); Lymphocytes % (Auto) 39.5 % (13.4-35.0); Mean Corpuscular HGB Conc 33 % (30-34); Mean Corpuscular Volume 92 fl (79-97); Monocytes # (Auto) 0.6 K/mm3 (0.0-0.8); Platelet Count 193 K/mm3 (140-440); Red Blood Count 3.62 M/mm3 (3.65-5.03); Red Cell Distribution Width 16.9 % (13.2-15.2)
[2019-04-20 21:33] LABS: Alanine Aminotransferase 8 units/L (7-56); Albumin 4.4 g/dL (3.9-5); BUN/Creatinine Ratio 8; Blood Urea Nitrogen 41 mg/dL (7-17); Hemolysis Index 22
[2019-04-20 21:34] LABS: Bilirubin,Direct < 0.2 mg/dL (0-0.2)
[2019-04-21 02:26] VITALS: BP 143/68
== END 2019-04-21 02:40 | disposition home or self-care (01) ==
LOC: ED 19:06
DX: R11.2 Nausea with vomiting, unspecified (principal)
CPT/HCPCS: 36415; 36569; 80048; 80076; 83690; 85025; 96374; 96375; 99284; C9113; J2405

== ENCOUNTER 2020-02-20 09:43 | Day surgery (SDC) | payer MEDICARE ==
[2020-02-20] MEDS ORDERED: HEPARIN/NS 5000 UNIT/500ML 1,000 ML IR ONE (11:42)
[2020-02-20] MEDS ORDERED: SODIUM CHLORIDE 0.9% 250ML 250 ML ONE (12:49)
[2020-02-20] MEDS: LIDOCAINE 1%/EPINEPHRINE 1:100,000 VIAL (20 ML) INFILTRATI ONE ×3 (13:21→14:20)
[2020-02-20] MEDS: MIDAZOLAM 2 MG/2 ML INJ ONE ×3 (13:21→14:37)
[2020-02-20] MEDS: fentaNYL 100 MCG/2 ML INJ ONE ×3 (13:21→14:37)
[2020-02-20] MEDS ORDERED: ceFAZolin/Water 2 GM/20 ML 2 GM/20 ML SYRINGE IV ONE (13:28)
[2020-02-20] MEDS: HEPARIN 10,000 UNITS/10 ML VIAL ONE ×3 (13:37→14:40)
[2020-02-20] MEDS ORDERED: SODIUM CHLORIDE 0.9% 500 ML 500 ML ONE (15:02)
--- NOTE | 2020-02-20 15:50 | Short Stay Summary ---
Short Stay Documentation Date of service: 02/20/20 Narrative H&P: See H&P - History H&P: obtained from office - Allergies and Medications Current Medications: Allergies dairy products Adverse Reaction (Uncoded 02/20/20 10:26) Unknown Home Medications Medication Instructions Recorded Confirmed Last Taken Type Pantoprazole [Protonix TAB] 20 mg PO QDAY #30 tablet. 03/29/19 02/20/20 02/19/20 Rx 20 mg Metoprolol Succinate 200 mg PO DAILY 10/27/19 02/20/20 02/19/20 History 200 mg Valsartan 320 mg PO DAILY 10/27/19 02/20/20 02/19/20 History 320 mg amLODIPine 10 mg PO DAILY 10/27/19 02/20/20 02/19/20 History 10 mg Dialyvite Chewable Probiotic 1 tab PO TID 01/01/20 02/20/20 02/19/20 History 1 traMADoL [Ultram 50 MG tab] 50 mg PO Q6HR PRN 01/01/20 02/20/20 12/31/19 History 50 mg - Brief post op/procedure progress note Date of procedure: 02/20/20 Pre-op diagnosis: Complications of Dialysis Access Post-op diagnosis: same Procedure: 1. Ultrasound-Guided Access Right Common Femoral Vein 2. Placement of 44 cm Palindrome Permacath 3. Ultrasound-Guided Access Left Arm AV Graft with 7 [place] Sheath Arterial 4. Ultrasound-Guided Access Left Arm AV Graft with 7 [place] Sheath Venous 5. Diagnostic Fistulogram with Central Venogram 6. Angioplasty of Left Arm AV Graft with 8 x 100 [place] Balloon 7. Removal of Left Internal Jugular Permacath 8. Angioplasty and Stent of Left Innominate Vein and Left Subclavian Vein with 12 x 40 [place]quest Balloon and 12 x 80 Fluency Stent Graft x2 9. Radiologic Supervision with Interpretation 10. Monitored Moderate Sedation (Total Anesthesia Time: 134 Minutes) Short Stay Discharge Plan Activity: other (Do Not Use Left Arm AV Graft until Cleared by Physician. Okay to use right femoral permacath for dialysis.) Wound: remove dressing (24 hours) Follow up with: DANY RHOADES MD [Staff Physician] - 14 Days
--- NOTE | 2020-02-20 15:56 | Operative Report ---
Operative Report Operative Report: Date of Procedure: 02/20/2020 Pre-operative Diagnosis: Complications of Dialysis Access Post-operative Diagnosis: Same Procedure(s): 1. Ultrasound-Guided Access Right Common Femoral Vein 2. Placement of 44 cm Palindrome Permacath 3. Ultrasound-Guided Access Left Arm AV Graft with 7 [place] Sheath Arterial 4. Ultrasound-Guided Access Left Arm AV Graft with 7 [place] Sheath Venous 5. Diagnostic Fistulogram with Central Venogram 6. Angioplasty of Left Arm AV Graft with 8 x 100 [place] Balloon 7. Removal of Left Internal Jugular Permacath 8. Angioplasty and Stent of Left Innominate Vein and Left Subclavian Vein with 12 x 40 [place]quest Balloon and 12 x 80 Fluency Stent Graft x2 9. Radiologic Supervision with Interpretation 10. Monitored Moderate Sedation Surgeon: All No M.D. Thin Film Technician: Anam Anesthesia: Monitored Moderate Sedation Total Anesthesia Time: 134 Minutes EBL: 150 mL Counts: Correct Complications: None Condition: Stable Specimen: Indwelling left internal jugular permacath was discarded. Indication: The patient is a 60-year-old female with a history of end-stage renal disease who is currently on hemodialysis through a left internal jugular permacath. 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 She is in need of fistulogram with angioplasty and stent which will require removal of her left internal jugular permacath and insertion in the groin. Her son and daughter have been given the risk, benefits, and alternative procedures and consented to the procedure. Angiographic Findings: The right femoral permacath was placed with the distal tip in the right atrium. The diagnostic fistulogram revealed that the arterial anastomosis was patent without evidence of flow-limiting stenosis. The graft was patent without evidence of flow-limiting stenosis. There was approximately 50% stenosis of the venous anastomosis. The axillary vein was patent without significant flow- limiting stenosis. There was occlusion of the proximal left subclavian vein as well as occlusion of the innominate vein. The superior vena cava appeared to be patent without evidence of flow-limiting stenosis. After intervention the venous anastomosis was patent with less than 10% residual stenosis. The innominate vein and subclavian vein were patent with less than 15% residual stenosis. Description of Procedure: The patient was brought to the [facility] and laid in supine position. After a timeout was performed she was adequately sedated and her right groin and thigh were prepped and draped in normal sterile fashion. Ultrasound was used to id entify the right common femoral vein and confirm patency. Once patency was confirmed the overlying skin and soft tissue was anesthetized with lidocaine. An 11 blade was used to make a small stab incision and an 18-gauge access needle was used with ultrasound guidance to enter the right common femoral vein. A 0.035 J-wire was advanced into the central venous system under direct fluoroscopic guidance and after removing the needle the tract was serially dilated and a 16 [place]divian peel-away SafeSheath was advanced into the vein. The 44 cm Palindrome Permacath was inserted into the peel-away SafeSheath however I was unable to advance it into the inferior vena cava and into the right atrium as it appeared to course into 1 of the hepatic veins. I used a 0.035 advantage wire and advanced this into the superior vena cava and then was able to advance the permacath into the right atrium. I then anesthetized the skin and soft tissue of the right thigh using 11 blade to make a small stab incision. I used a tunneler to tunnel from the exit site on the thigh to the entry site in the groin and after pulling the SafeSheath away I clamped the permacath and then cut the permacath at the first noman. I connected the permacath to the tunneler and then pulled retrograde through the tunnel. I reclamped the permacath and then cut the permacath length in the connected the house as well as the 2 ports. I removed the clamp and then aspirated and flushed both ports. I then primed the ports with the appropriate amount of heparin. I closed the groin incision with a 4-0 Monocryl in interrupted fashion and dressed with Dermabond. The permacath was then secured in position with a 2-0 Ethilon in interrupted fashion. The catheter was then dressed with a sterile dressing. Final fluoroscopy of the permacath revealed the catheter was in adequate position with the distal tip in the right atrium. The sterile field was then broken within the patient's indwelling catheter in the left internal jugular vein as well as her left arm were prepped and draped in normal sterile fashion. Ultrasound was used to identify the graft in the left arm and the overlying skin and soft tissue was anesthetized with lidocaine. A 21-gauge micropuncture needle was used with ultrasound guidance into the graft and a 0.018 micropuncture wire was advanced into the graft. After removing the needle a 7 [place]div[place] sheath was placed by Seldinger technique. I advanced a vertebral catheter into the graft and performed a diagnostic fistulogram however this revealed that I had access the graft in the arterial limb and was in the axillary artery. This also revealed the previously described findings of the diagnostic fistulogram. I made multiple attempts to identify the venous limb however given the amount of edema in her arm I was unable to identify the venous limb so I used lidocaine to anesthetize the skin and soft tissue overlying the arterial limb of the graft and used a 21-gauge micropuncture needle to access the graft towards the venous outflow reveals a 0.018 micropuncture wire in the graft towards the venous outflow. After removing the needle placed a 7 Maldivian sheath percentage technique. I advanced a vertebral catheter and the advantage wire into the subclavian vein at the level of occlusion. I then remove the short 6 Maldivian sheath and exchanged for 7 Maldivian 45 cm destination sheath. At this point I systemically heparinized the patient with 3000 units of heparin IV. I then used a [place] catheter with the advantage wire was able to cross the occluded vessels and into the inferior vena cava. I used an 8 x 100 [place] Balloon to predilate the occluded innominate vein and occluded portion of the subclavian vein as well as performing angioplasty of the stenosis of the venous anast omosis. This resulted in less than 10% residual stenosis at the venous anastomosis. I then decided to place stents in the innominate vein as well as the occluded portion of the subclavian vein so that I could adequately dilate the innominate vein and subclavian vein in the same fashion. I remove the destination sheath and advanced a 12 x 80 Fluency Stent Graft, bareback, into position in the innominate vein. Once had a stent graft in position I remove the permacath and deployed the stent graft. I removed the delivery sheath and quickly inserted a second 12 x 80 fluency stent graft with approximately 2 cm of overlap and this extended into the subclavian vein. I deployed this and remove the delivery sheath and inserted an 8 x 25 cm sheath. I then used the 12 x 40 [place] Balloon to post dilate the stent graft with a result of less than 15% residual stenosis. At this point I removed the balloon and wire and used a 2-0 Ethilon in slipknot fashion to close the entry site of the 7 [place]div[place] sheath. I then used a 2-0 Ethilon in [id number] fashion to close the 8 Maldivian entry site. Sterile pressure dressings were then applied to the arm and a sterile dressing was applied to the permacath exit site. The patient tolerated the procedure well and was transported to the recovery area in stable condition.
[2020-02-20 16:46] VITALS: BP 140/58
== END 2020-02-20 17:10 | disposition home or self-care (01) ==
LOC: CATHLABREC 09:43
PROVIDERS: ATTEND Surgery Vascular Surgery
DX: T82.898A Other specified complication of vascular prosthetic devices, implants and grafts, initial encounter (principal); I12.0 Hypertensive chronic kidney disease with stage 5 chronic kidney disease or end stage renal disease; E11.22 Type 2 diabetes mellitus with diabetic chronic kidney disease; N18.6 End stage renal disease; K21.9 Gastro-esophageal reflux disease without esophagitis; G93.41 Metabolic encephalopathy; F03.90 Unspecified dementia, unspecified severity, without behavioral disturbance, psychotic disturbance, mood disturbance, and anxiety; G93.40 Encephalopathy, unspecified; I25.2 Old myocardial infarction; Z80.0 Family history of malignant neoplasm of digestive organs; Z79.899 Other long term (current) drug therapy; Z87.440 Personal history of urinary (tract) infections; Z71.89 Other specified counseling; Z91.81 History of falling; Z98.890 Other specified postprocedural states; Z82.5 Family history of asthma and other chronic lower respiratory diseases; Z82.49 Family history of ischemic heart disease and other diseases of the circulatory system; Z86.73 Personal history of transient ischemic attack (TIA), and cerebral infarction without residual deficits; Y82.8 Other medical devices associated with adverse incidents; Y92.89 Other specified places as the place of occurrence of the external cause
CPT/HCPCS: 36415; 36558; 36589; 36903; 76937; 77001; 84132; 99156; 99157; C1725; C1750; C1769; C1874; C1887; C1894; J0690; J1644; J2250; J3010; J7040; J7050; Q9967

== ENCOUNTER 2020-02-22 15:53 | Emergency (ER) | payer MEDICARE ==
[2020-02-22] MEDS ORDERED: ONDANSETRON 4 MG/2 ML INJ IV ONE (18:00)
[2020-02-22] MEDS ORDERED: MORPHINE 4 MG/1 ML INJ IV ONE (18:00)
--- NOTE | 2020-02-22 18:05 | Emergency Department Report ---
ED General Adult HPI - General Chief complaint: Nausea/Vomiting/Diarrhea Stated complaint: VOMITING Time Seen by Provider: 02/22/20 17:23 Source: EMS Mode of arrival: Stretcher Limitations: Altered Mental Status - History of Present Illness Initial comments: Patient presents to the emergency department via EMS from home status post dialysis for 1 episode of vomiting. Patient is nonverbal and not able to add to the history. -: Sudden Severity scale (0 -10): 0 Consistency: constant Improves with: none Worsens with: none Associated Symptoms: denies other symptoms Treatments Prior to Arrival: none - Related Data Home Medications Medication Instructions Recorded Confirmed Last Taken Metoprolol Succinate 200 mg PO DAILY 10/27/19 02/22/20 02/19/20 200 mg Valsartan 320 mg PO DAILY 10/27/19 02/22/20 02/19/20 320 mg amLODIPine 10 mg PO DAILY 10/27/19 02/22/20 02/19/20 10 mg Dialyvite Chewable Probiotic 1 tab PO TID 01/01/20 02/22/20 02/19/20 1 traMADoL [Ultram 50 MG tab] 50 mg PO Q6HR PRN 01/01/20 02/22/20 12/31/19 50 mg AtorvaSTATin [Lipitor] 10 mg PO QHS 02/22/20 02/22/20 Unknown Ondansetron [Zofran Odt] 4 mg PO Q8HR 02/22/20 02/22/20 Unknown Previous Rx's Medication Instructions Recorded Last Taken Type Pantoprazole [Protonix TAB] 20 mg PO QDAY #30 tablet.dr 03/29/19 02/19/20 Rx 20 mg Promethazine [Phenergan] 25 mg [place] Q6HR PRN #12 supp.rect 02/22/20 Unknown Rx Allergies Allergy/AdvReac Type Severity Reaction Status Date / Time dairy products AdvReac Unknown Uncoded 02/20/20 10:26 ED Review of Systems ROS: Stated complaint: VOMITING Other details as noted in HPI Comment: Unobtainable due to pts medical conditions ED Past Medical Hx - Past Medical History Hx Hypertension: Yes (took metoprolol today) 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 Anemia - Surgical History Hx Coronary Stent: No Hx Pacemaker: No Hx Internal Defibrillator: No Hx Appendectomy: No Hx Breast Surgery: No Additional Surgical History: Blind Right eye - Social History Smoking Status: Never Smoker Substance Use Type: None - Medications Home Medications: Home Medications Medication Instructions Recorded Confirmed Last Taken Type Pantoprazole [Protonix TAB] 20 mg PO QDAY #30 tablet. 03/29/19 02/22/20 02/19/20 Rx 20 mg Metoprolol Succinate 200 mg PO DAILY 10/27/19 02/22/20 02/19/20 History 200 mg Valsartan 320 mg PO DAILY 10/27/19 02/22/20 02/19/20 History 320 mg amLODIPine 10 mg PO DAILY 10/27/19 02/22/20 02/19/20 History 10 mg Dialyvite Chewable Probiotic 1 tab PO TID 01/01/20 02/22/20 02/19/20 History 1 traMADoL [Ultram 50 MG tab] 50 mg PO Q6HR PRN 01/01/20 02/22/20 12/31/19 History 50 mg AtorvaSTATin [Lipitor] 10 mg PO QHS 02/22/20 02/22/20 Unknown History Ondansetron [Zofran Odt] 4 mg PO Q8HR 02/22/20 02/22/20 Unknown History Promethazine [Phenergan] 25 mg [place] Q6HR PRN #12 supp.rect 02/22/20 Unknown Rx ED Physical Exam - General Limitations: Altered Mental Status General appearance: obtunded, cachectic, other (The patient grimaces whenever you touch her with the increase her heart rate and blood pressure.) - Head Head exam: Present: atraumatic, normocephalic - Eye Eye exam: Present: other (Patient has her eyes glued closed on exam) - ENT ENT exam: Present: mucous membranes moist - Neck Neck exam: Present: normal inspection - Respiratory Respiratory exam: Present: normal lung sounds bilaterally. Absent: respiratory distress - Cardiovascular Cardiovascular Exam: Present: regular rate, normal rhythm. Absent: systolic murmur, diastolic murmur, rubs, gallop - GI/Abdominal GI/Abdominal exam: Present: soft, normal bowel sounds. Absent: distended, tenderness - Extremities Exam Extremities exam: Present: other (Patient has contractures of her upper and lower extremities) - Back Exam Back exam: Present: normal inspection - Neurological Exam Neurological exam: Present: other (Patient obtunded) - Psychiatric Psychiatric exam: Present: normal affect, normal mood - Skin Skin exam: Present: warm, dry, intact, normal color. Absent: rash ED Course Vital Signs 02/22/20 02/22/20 02/22/20 16:30 16:33 16:45 Temperature 98.5 F Pulse Rate 63 65 Respiratory 14 17 16 Rate Blood Pressure 148/30 148/30 Blood Pressure 148/30 [Right] O2 Sat by Pulse 100 100 100 Oximetry 02/22/20 02/22/20 02/22/20 17:01 17:15 17:31 Temperature Pulse Rate 64 62 62 Respiratory 14 8 L 10 L Rate Blood Pressure 148/30 168/34 168/34 Blood Pressure [Right] O2 Sat by Pulse 100 100 100 Oximetry 02/22/20 02/22/20 02/22/20 17:45 18:00 18:15 Temperature Pulse Rate 64 64 61 Respiratory 11 L 11 L 7 L Rate Blood Pressure 168/34 163/123 163/123 Blood Pressure [Right] O2 Sat by Pulse 100 100 100 Oximetry 02/22/20 02/22/20 02/22/20 18:20 18:27 18:31 Temperature Pulse Rate 60 Respiratory 18 18 8 L Rate Blood Pressure 163/123 Blood Pressure [Right] O2 Sat by Pulse 100 Oximetry 02/22/20 02/22/20 02/22/20 18:45 19:00 19:15 Temperature Pulse Rate 61 60 59 L Respiratory 8 L 7 L 7 L Rate Blood Pressure 163/123 142/67 163/123 Blood Pressure [Right] O2 Sat by Pulse 100 100 100 Oximetry 02/22/20 02/22/20 02/22/20 19:31 19:45 20:01 Temperature Pulse Rate 59 L 59 L 62 Respiratory 7 L 10 L 12 Rate Blood Pressure 163/123 163/123 163/123 Blood Pressure [Right] O2 Sat by Pulse 100 100 99 Oximetry 1002/22/20 02/22/20 20:45 21:00 21:15 Temperature Pulse Rate 58 L 57 L 57 L Respiratory 11 L 5 L 9 L Rate Blood Pressure 156/66 144/59 156/66 Blood Pressure [Right] O2 Sat by Pulse 100 100 100 Oximetry 02/22/20 02/22/20 02/22/20 21:31 21:45 22:00 Temperature Pulse Rate 57 L 56 L 55 L Respiratory 7 L 11 L 5 L Rate Blood Pressure 156/66 156/66 133/58 Blood Pressure [Right] O2 Sat by Pulse 100 100 100 Oximetry 02/22/20 02/22/20 02/22/20 22:15 22:31 22:45 Temperature Pulse Rate 56 L 56 L 55 L Respiratory 6 L 6 L 6 L Rate Blood Pressure 133/58 133/58 133/58 Blood Pressure [Right] O2 Sat by Pulse 100 100 100 Oximetry ED Medical Decision Making - Lab Data Result diagrams: 02/22/20 Unknown 02/22/20 Unknown Lab Results 02/22/20 02/22/20 Range/Units Unknown Unknown WBC 10.3 (4.5-11.0) K/mm3 RBC 3.18 L (3.65-5.03) M/mm3 Hgb 8.7 L (10.1-14.3) gm/dl Hct 26.9 L (30.3-42.9) % MCV 85 (79-97) fl MCH 27 L (28-32) pg MCHC 32 (30-34) % RDW 17.9 H (13.2-15.2) % Plt Count 110 L (140-440) K/mm3 Add Manual Diff Complete Total Counted 100 Seg Neuts % (Manual) 83.0 H (40.0-70.0) % Band Neutrophils % 0 % Lymphocytes % (Manual) 11.0 L (13.4-35.0) % Reactive Lymphs % (Man) 0 % Monocytes % (Manual) 5.0 (0.0-7.3) % Eosinophils % (Manual) 1.0 (0.0-4.3) % Basophils % (Manual) 0 (0.0-1.8) % Metamyelocytes % 0 % Myelocytes % 0 % Promyelocytes % 0 % Blast Cells % 0 % Nucleated RBC % Not Reportable Seg Neutrophils # Man 8.5 H (1.8-7.7) K/mm3 Band Neutrophils # 0.0 K/mm3 Lymphocytes # (Manual) 1.1 L (1.2-5.4) K/mm3 Abs React Lymphs (Man) 0.0 K/mm3 Monocytes # (Manual) 0.5 (0.0-0.8) K/mm3 Eosinophils # (Manual) 0.1 (0.0-0.4) K/mm3 Basophils # (Manual) 0.0 (0.0-0.1) K/mm3 Metamyelocytes # 0.0 K/mm3 Myelocytes # 0.0 K/mm3 Promyelocytes # 0.0 K/mm3 Blast Cells # 0.0 K/mm3 WBC Morphology Not Reportable Hypersegmented Neuts Not Reportable Hyposegmented Neuts Not Reportable Hypogranular Neuts Not Reportable Smudge Cells Not Reportable Toxic Granulation Not Reportable Toxic Vacuolation Not Reportable Dohle Bodies Not Reportable Pelger-Huet Anomaly Not Reportable Marianna Rods Not Reportable Platelet Estimate Consistent w auto Clumped Platelets Not Reportable Plt Clumps, EDTA Not Reportable Large Platelets Not Reportable Giant Platelets Not Reportable Platelet Satelliting Not Reportable Plt Morphology Comment Not Reportable RBC Morphology Not Reportable Dimorphic RBCs Not Reportable Polychromasia Not Reportable Hypochromasia Not Reportable Poikilocytosis Not Reportable Anisocytosis Not Reportable Microcytosis Not Reportable Macrocytosis Not Reportable Spherocytes Not Reportable Pappenheimer Bodies Not Reportable Sickle Cells Not Reportable Target Cells Not Reportable Tear Drop Cells Not Reportable Ovalocytes Rare Helmet Cells Not Reportable Koenig-Intercourse Bodies Not Reportable [place] Rings Not Reportable Roly Cells Rare Bite Cells Not Reportable Crenated Cell Not Reportable Elliptocytes Not Reportable Acanthocytes (Spur) Not Reportable Rouleaux Not Reportable Hemoglobin C Crystals Not Reportable Schistocytes Not Reportable Malaria parasites Not Reportable José Miguel Bodies Not Reportable Hem Pathologist Commnt No Sodium 134 L (137-145) mmol/L Potassium 4.3 (3.6-5.0) mmol/L Chloride 95.1 L (98-107) mmol/L Carbon Dioxide 28 (22-30) mmol/L Anion Gap 15 mmol/L BUN 27 H (7-17) mg/dL Creatinine 3.2 H (0.6-1.2) mg/dL Estimated GFR 18 ml/min BUN/Creatinine Ratio 8 % Glucose 81 (65-100) mg/dL Calcium 7.9 L (8.4-10.2) mg/dL Total Bilirubin 0.30 (0.1-1.2) mg/dL AST 13 (5-40) units/L ALT < 5 L (7-56) units/L Alkaline Phosphatase 99 (35-129) units/L Total Protein 5.9 L (6.3-8.2) g/dL Albumin 3.2 L (3.9-5) g/dL Albumin/Globulin Ratio 1.2 % - Medical Decision Making Results reviewed Patient's without white count on review of lab Review of the patient's creatinine and BUN are consistent with prior levels and also consistent with the patient with renal failure who is on dialysis Critical care attestation.: If time is entered above; I have spent that time in minutes in the direct care of this critically ill patient, excluding procedure time. ED Disposition Clinical Impression: Nausea & vomiting Disposition: DC-01 TO HOME OR SELFCARE Is pt being admited?: No Does the pt Need Aspirin: No Condition: Stable Instructions: Acute Nausea and Vomiting (ED) Additional Instructions: return if worse Prescriptions: Promethazine [Phenergan] 25 mg [place] Q6HR PRN #12 supp.rect PRN Reason: Nausea Referrals: PRIMARY CAREMD [Primary Care Provider] - 3-5 Days DORIS ARDON MD [Staff Physician] - 3-5 Days Time of Disposition: 23:21
[2020-02-22 22:07] LABS: Hemoglobin 8.7 gm/dl (10.1-14.3); Red Blood Count 3.18 M/mm3 (3.65-5.03)
[2020-02-22 22:13] LABS: Hematocrit 26.9 % (30.3-42.9); Mean Corpuscular HGB Conc 32 % (30-34); Mean Corpuscular Volume 85 fl (79-97); Platelet Count 110 K/mm3 (140-440); Red Cell Distribution Width 17.9 % (13.2-15.2)
[2020-02-22 22:48] LABS: Albumin 3.2 g/dL (3.9-5); BUN/Creatinine Ratio 8; Blood Urea Nitrogen 27 mg/dL (7-17); Calcium 7.9 mg/dL (8.4-10.2); Hemolysis Index 4
[2020-02-22 22:51] LABS: Alanine Aminotransferase < 5 units/L (7-56)
[2020-02-22 23:10] LABS: Basophils % (Manual) 0 % (0.0-1.8); Ovalocytes Rare; Total Cells Counted 100
[2020-02-22 23:11] LABS: Burr Cells Rare; Platelet Estimate Consistent w Auto
[2020-02-22] MEDS ORDERED: PROMETHAZINE 25 MG RECT SUPP PR ONE (23:22)
[2020-02-23 03:30] VITALS: BP 116/28
== END 2020-02-23 03:36 | disposition home or self-care (01) ==
LOC: ED 15:53
DX: R11.2 Nausea with vomiting, unspecified (principal); I25.2 Old myocardial infarction; I10 Essential (primary) hypertension; E11.9 Type 2 diabetes mellitus without complications; K21.9 Gastro-esophageal reflux disease without esophagitis; M19.91 Primary osteoarthritis, unspecified site; F03.90 Unspecified dementia, unspecified severity, without behavioral disturbance, psychotic disturbance, mood disturbance, and anxiety; Z79.899 Other long term (current) drug therapy; Z91.011 Allergy to milk products
CPT/HCPCS: 36415; 80053; 85007; 85025; 96374; 96375; 99284; J2270; J2405

== ENCOUNTER 2020-02-27 13:14 | Emergency (ER) | payer MEDICARE ==
[2020-02-27] MEDS ORDERED: ONDANSETRON 4 MG/2 ML INJ IV ONE (14:50)
[2020-02-27] MEDS ORDERED: SODIUM CHLORIDE 0.9% 1000 ML 1,000 ML IV ONE (14:50)
--- NOTE | 2020-02-27 15:31 | Emergency Department Report ---
ED General Adult HPI - General Chief complaint: Nausea/Vomiting/Diarrhea Stated complaint: VOMITING Time Seen by Provider: 02/27/20 14:49 Source: patient, EMS Mode of arrival: Stretcher Limitations: Other - History of Present Illness Initial comments: Patient is 60 years old female with history of end-stage renal disease. Patient brought to the emergency room via EMS from dialysis after patient started having vomiting. Patient is alert, oriented x3 and in no acute distress. Patient stated that she is feeling much better. She denied any abdominal pain, chest pain or shortness of breath. No fever or chills. - Related Data Home Medications Medication Instructions Recorded Confirmed Last Taken Metoprolol Succinate 200 mg PO DAILY 10/27/19 02/27/20 02/19/20 200 mg Valsartan 320 mg PO DAILY 10/27/19 02/27/20 02/19/20 320 mg amLODIPine 10 mg PO DAILY 10/27/19 02/27/20 02/19/20 10 mg Dialyvite Chewable Probiotic 1 tab PO TID 01/01/20 02/27/20 02/19/20 1 traMADoL [Ultram 50 MG tab] 50 mg PO Q6HR PRN 01/01/20 02/27/20 12/31/19 50 mg AtorvaSTATin [Lipitor] 10 mg PO QHS 02/22/20 02/27/20 Unknown Ondansetron [Zofran Odt] 4 mg PO Q8HR 02/22/20 02/27/20 Unknown Previous Rx's Medication Instructions Recorded Last Taken Type Pantoprazole [Protonix TAB] 20 mg PO QDAY #30 tablet. 03/29/19 02/19/20 Rx 20 mg Promethazine [Phenergan] 25 mg [place] Q6HR PRN #12 supp.rect 02/22/20 Unknown Rx Ondansetron [Zofran Odt] 4 mg PO Q8HR PRN #14 tab.rapdis 02/27/20 Unknown Rx Allergies Allergy/AdvReac Type Severity Reaction Status Date / Time dairy products AdvReac Unknown Uncoded 02/20/20 10:26 ED Review of Systems ROS: Stated complaint: VOMITING Other details as noted in HPI Comment: All other systems reviewed and negative Constitutional: denies: chills, fever Respiratory: denies: cough, shortness of breath, SOB with exertion, wheezing Cardiovascular: denies: chest pain, palpitations Gastrointestinal: nausea, vomiting. denies: abdominal pain, diarrhea, constipation, hematemesis, melena, hematochezia Musculoskeletal: denies: back pain Neurological: denies: headache, weakness ED Past Medical Hx - Past Medical History Hx Hypertension: Yes (took metoprolol today) 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 Anemia - Surgical History Hx Coronary Stent: No Hx Pacemaker: No Hx Internal Defibrillator: No Hx Appendectomy: No Hx Breast Surgery: No Additional Surgical History: Blind Right eye - Social History Smoking Status: Never Smoker Substance Use Type: None - Medications Home Medications: Home Medications Medication Instructions Recorded Confirmed Last Taken Type Pantoprazole [Protonix TAB] 20 mg PO QDAY #30 tablet. 03/29/19 02/27/20 02/19/20 Rx 20 mg Metoprolol Succinate 200 mg PO DAILY 10/27/19 02/27/20 02/19/20 History 200 mg Valsartan 320 mg PO DAILY 10/27/19 02/27/20 02/19/20 History 320 mg amLODIPine 10 mg PO DAILY 10/27/19 02/27/20 02/19/20 History 10 mg Dialyvite Chewable Probiotic 1 tab PO TID 01/01/20 02/27/20 02/19/20 History 1 traMADoL [Ultram 50 MG tab] 50 mg PO Q6HR PRN 01/01/20 02/27/20 12/31/19 History 50 mg AtorvaSTATin [Lipitor] 10 mg PO QHS 02/22/20 02/27/20 Unknown History Ondansetron [Zofran Odt] 4 mg PO Q8HR 02/22/20 02/27/20 Unknown History Promethazine [Phenergan] 25 mg [place] Q6HR PRN #12 supp.rect 02/22/20 02/27/20 Unknown Rx Ondansetron [Zofran Odt] 4 mg PO Q8HR PRN #14 tab.rapdis 02/27/20 Unknown Rx ED Physical Exam - General Limitations: Other General appearance: alert, in no apparent distress - Head Head exam: Present: atraumatic, normocephalic, normal inspection - Eye Eye exam: Present: normal appearance - ENT ENT exam: Present: normal exam, normal orophraynx, mucous membranes moist - Neck Neck exam: Present: normal inspection, full ROM. Absent: tenderness, meningismus, lymphadenopathy, thyromegaly - Respiratory Respiratory exam: Present: normal lung sounds bilaterally - Cardiovascular Cardiovascular Exam: Present: regular rate, normal rhythm, normal heart sounds - GI/Abdominal GI/Abdominal exam: Present: soft, normal bowel sounds. Absent: distended, tenderness, guarding, rebound, rigid, organomegaly, mass, bruit, pulsatile mass, hernia - Extremities Exam Extremities exam: Present: other (Patient is very contracted.) - Neurological Exam Neurological exam: Present: alert - Skin Skin exam: Present: warm ED Course Vital Signs 02/27/20 02/27/20 02/27/20 14:36 14:52 15:00 Temperature 98.4 F Pulse Rate 65 65 64 Respiratory 18 16 10 L Rate Blood Pressure 153/62 152/59 Blood Pressure 154/61 [Right] O2 Sat by Pulse 100 98 99 Oximetry 02/27/20 02/27/20 02/27/20 15:15 15:30 15:46 Temperature Pulse Rate 65 68 Respiratory 9 L 13 Rate Blood Pressure 153/60 153/60 154/61 Blood Pressure [Right] O2 Sat by Pulse 99 100 100 Oximetry 02/27/20 02/27/20 02/27/20 16:01 16:15 16:30 Temperature Pulse Rate 62 Respiratory 18 Rate Blood Pressure 174/54 168/63 Blood Pressure 140/62 [Right] O2 Sat by Pulse 97 100 Oximetry 02/27/20 21:17 Temperature Pulse Rate 72 Respiratory 18 Rate Blood Pressure Blood Pressure 138/82 [Right] O2 Sat by Pulse 97 Oximetry ED Medical Decision Making - Lab Data Result diagrams: 02/27/20 15:28 02/27/20 17:10 - EKG Data -: EKG Interpreted by [facility] EKG shows normal: sinus rhythm Rate: normal - EKG Data Interpretation: no acute changes - Radiology Data Radiology results: report reviewed - Medical Decision Making Patient is 60 years old female with history of end-stage renal disease. Patient brought to the emergency room via EMS from dialysis after patient started having vomiting. Patient is alert, oriented x3 and in no acute distress. Patient stated that she is feeling much better. She denied any abdominal pain, chest pain or shortness of breath. No fever or chills. Patient remained stable in the emergency room. No vomiting observed. Labs reviewed and is unremarkable except for her chronic elevation of kidney function and hemoglobin of 8.5. CT abdomen and pelvis is negative for acute finding except for anasarca which is most likely related to her chronic kidney disease. 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 Critical care attestation.: If time is entered above; I have spent that time in minutes in the direct care of this critically ill patient, excluding procedure time. ED Disposition Clinical Impression: Acute nausea with nonbilious vomiting, Abdominal pain Disposition: DC-01 TO HOME OR SELFCARE Is pt being admited?: No Condition: Stable Instructions: Acute Nausea and Vomiting (ED), Abdominal Pain (ED) Prescriptions: Ondansetron [Zofran Odt] 4 mg PO Q8HR PRN #14 tab.rapdis PRN Reason: Nausea And Vomiting Referrals: PRIMARY CARE, [Primary Care Provider] - 3-5 Days
[2020-02-27 16:11] LABS: Basophils # (Auto) 0.2 K/mm3 (0.0-0.1); Basophils % (Auto) 1.2 % (0.0-1.8); Eosinophils # (Auto) 0.3 K/mm3 (0.0-0.4); Eosinophils % (Auto) 2.7 % (0.0-4.3); Hematocrit 27.1 % (30.3-42.9); Hemoglobin 8.5 gm/dl (10.1-14.3); Lymphocytes # (Auto) 1.6 K/mm3 (1.2-5.4); Lymphocytes % (Auto) 12.3 % (13.4-35.0); Mean Corpuscular HGB Conc 31 % (30-34); Mean Corpuscular Volume 87 fl (79-97); Monocytes # (Auto) 0.9 K/mm3 (0.0-0.8); Monocytes % (Auto) 7.3 % (0.0-7.3); Red Blood Count 3.12 M/mm3 (3.65-5.03); Red Cell Distribution Width 19.4 % (13.2-15.2)
[2020-02-27] MEDS ORDERED: SODIUM CHLORIDE 0.9% 1000 ML 1,000 ML ONE (16:17)
[2020-02-27 16:22] LABS: Platelet Count 81 K/mm3 (140-440)
[2020-02-27 16:26] LABS: INR 1.02 (0.87-1.13)
[2020-02-27 16:56] LABS: BUN/Creatinine Ratio TNR; Calcium TNR mg/dL (8.4-10.2)
[2020-02-27 16:57] LABS: Alanine Aminotransferase TNR units/L (7-56); Albumin TNR g/dL (3.9-5); Bilirubin,Direct TNR mg/dL (0-0.2)
[2020-02-27 16:58] LABS: Hemolysis Index TNR
[2020-02-27 16:59] LABS: Blood Urea Nitrogen TNR mg/dL (7-17)
--- NOTE | 2020-02-27 17:25 | Cat Scan Report ---
CT abdomen pelvis wo con INDICATION: ABDOMINAL PAIN. TECHNIQUE: All CT scans at this location are performed using the following dose modulation technique: Automated exposure control. Helical slices were obtained through the abdomen and pelvis. No contrast is adminis tered. COMPARISON: CT scan dated 03/15/2019 FINDINGS: Abdomen: There are small bilateral pleural effusions. There is some patchy parenchymal opacity in the lung bases likely representing atelectasis. The heart is enlarged. There is an intravenous catheter which enters from the right groin and terminates at the level of the right atrium. This appears to be a dialysis catheter. Atherosclerotic calcifications are noted in the aorta and coronary arteries. There is artifact from gantry contact. The liver, spleen, pancreas, and adrenal glands show no acute abnormality. Vascular calcifications are noted in the aorta, mesenteric vessels and renal arteries. T here is a moderate to large amount of stool noted throughout the colon. There is no free air. There i s subcutaneous edema. There is mesenteric edema. No bowel obstruction is seen. There is high density material in the gallbladder which could represent gallstones or sludge. Pelvis: Vascular calcifications are noted. There are no abnormal fluid collections. On review of bone windows, no acute osseous abnormality is seen. IMPRESSION: 1. There is anasarca. There are small bilateral effusions. Basilar airspace opacities likely represen t atelectasis. There is atherosclerotic disease. There is constipation. There is high density material in the gallbladder which could represent gallstones or sludge. Signer Name: Urbano Bradshaw MD Signed: 02/27/2020 5:21 PM Workstation Name: [id number]
[2020-02-27 17:38] LABS: Albumin 3.4 g/dL (3.9-5)
[2020-02-27 17:40] LABS: Alanine Aminotransferase < 5 units/L (7-56); Bilirubin,Direct < 0.2 mg/dL (0-0.2)
[2020-02-27 17:49] LABS: Blood Urea Nitrogen 27 mg/dL (7-17); Calcium 8.1 mg/dL (8.4-10.2); Hemolysis Index 6
[2020-02-27 17:51] LABS: BUN/Creatinine Ratio 6
[2020-02-27 18:03] LABS: Chol/HDL Ratio 2.23 %; HDL Cholesterol 52 mg/dL (40-59); LDL Cholesterol,Direct 58 mg/dL (50-130)
[2020-02-27 21:18] VITALS: BP 138/82
== END 2020-02-27 21:17 | disposition home or self-care (01) ==
LOC: ED 13:14
DX: R11.2 Nausea with vomiting, unspecified (principal); R10.9 Unspecified abdominal pain; I10 Essential (primary) hypertension; J45.909 Unspecified asthma, uncomplicated; M19.90 Unspecified osteoarthritis, unspecified site; E03.9 Hypothyroidism, unspecified; Z79.899 Other long term (current) drug therapy; Z91.011 Allergy to milk products
CPT/HCPCS: 36415; 74176; 80048; 80061; 80076; 83690; 84484; 85025; 85610; 93005; 96361; 96374; 99284; J2405; J7030

== ENCOUNTER 2020-05-07 07:48 | Day surgery (SDC) | payer MEDICARE ==
[~2020-05-07 07:48] MED LIST: BUPIVACAINE/PF (0.5%) 5 MG/1 ML 30 ML VIAL INFILTRATI ONE; HEPARIN 10,000 UNITS/10 ML VIAL ONE; SODIUM CHLORIDE 0.9% 250ML 250 ML ONE; SODIUM CHLORIDE 0.9% 500 ML 500 ML ONE; SODIUM CHLORIDE P/F VIAL 10 ML 10 ML ONE; ceFAZolin/Water 2 GM/20 ML 2 GM/20 ML SYRINGE IV NR; rifAMPin 600 MG VIAL ONE
[2020-05-07 08:45] LABS: Mean Corpuscular HGB Conc 31 % (30-34); Mean Corpuscular Volume 89 fl (79-97); Platelet Count 104 K/mm3 (140-440); Red Blood Count 4.39 M/mm3 (3.65-5.03); Red Cell Distribution Width 17.3 % (13.2-15.2)
[2020-05-07 08:49] LABS: Hematocrit 39.2 % (30.3-42.9)
[2020-05-07] MEDS ORDERED: HYDROmorphone 1 MG/1 ML INJ IV PRN ×2 (10:50)
--- NOTE | 2020-05-07 10:51 | Anesthesia Day of Surgery ---
Anesthesia Day of Surgery - Day of Surgery Patient Examined: Yes Patient H&P Reviewed: Yes Patient is NPO: Yes
--- NOTE | 2020-05-07 10:53 | Anesthesia Consultation ---
Anesthesia Consult and Med Hx Date of service: 05/07/20 - Airway Anesthetic Teeth Evaluation: Poor Intubation Access Assessment: Possibly Difficult ((uncooperative with airway exam. 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) Hx Angina: No Hx Percutaneous Transluminal Coronary Angioplasty (PTCA): No Hx Cardia Arrhythmia: No Hx Pacemaker: No Hx Internal Defibrillator: No Hx Valvular Heart Disease: No Hx Heart Murmur: No Hx Peripheral Vascular Disease: No - Central Nervous System Hx Seizures: No 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) Hx Back Pain: Yes Hx Psychiatric Problems: Yes (dementia) - Gastrointestinal Hx Ulcer: No Hx Gastroesophageal Reflux Disease: No - Endocrine Hx Renal Disease: Yes Hx End Stage Renal Disease: Yes (Last HD [id number]) Hx Cirrhosis: No Hx Liver Disease: No Hx Insulin Dependent Diabetes: Yes Hx Non-Insulin Dependent Diabetes: Yes (prior hx now resolved) Hx Thyroid Disease: No Hx Hypothyroidism: No Hx Hyperthyroidism: No - Hematic Hx Anemia: Yes Hx Sickle Cell Disease: No - Other Systems Hx Alcohol Use: No Hx Substance Use: No Hx Cancer: No Hx Obesity: No - Additional Comments Anesthesia Medical History Comments: No hx anesthetic complications. PMH and consent obtained from Eric Jules (son) over the phone. Last here [id number]
[2020-05-07] MEDS ORDERED: SODIUM CHLORIDE 0.9% 1000 ML 1,000 ML IV SCH (11:00)
[2020-05-07] MEDS ORDERED: dexAMETHasone 20 MG/5 ML VIAL ONE (11:14)
[2020-05-07] MEDS ORDERED: LIDOCAINE PF 100 MG/5 ML (CARDIAC SYRINGE) IV ONE (11:14)
[2020-05-07] MEDS ORDERED: fentaNYL 100 MCG/2 ML INJ ONE (11:14)
[2020-05-07] MEDS ORDERED: propofoL 200 MG/20 ML VIAL IV ONE (11:15)
[2020-05-07] MEDS ORDERED: ePHEDrine SULFATE 50 MG/1 ML INJ ONE (11:15)
[2020-05-07] MEDS ORDERED: PHENYLEPHRINE/NS 1,000 MCG/10 ML SYRINGE (OR USE) IV ONE (11:57)
[2020-05-07] MEDS ORDERED: ONDANSETRON 4 MG/2 ML INJ IV PRN (12:00)
[2020-05-07] MEDS ORDERED: BUPIVACAINE/PF (0.5%) 5 MG/1 ML 30 ML VIAL INFILTRATI ONE ×2 (12:37)
[2020-05-07] MEDS ORDERED: HEPARIN 10,000 UNITS/10 ML VIAL IV ONE ×2 (12:38→12:40)
[2020-05-07] MEDS ORDERED: SODIUM CHLORIDE 0.9% 500 ML IVPB IV ONE (12:38)
[2020-05-07] MEDS ORDERED: rifAMPin 600 MG VIAL IV ONE (12:39)
[2020-05-07] MEDS ORDERED: SODIUM CHLORIDE 0.9% 250 ML IVPB IV ONE (12:41)
[2020-05-07] MEDS ORDERED: SODIUM CHLORIDE 0.9% IRR 1,500 ML BOTTLE IR ONE (12:42)
--- NOTE | 2020-05-07 14:17 | Short Stay Summary ---
Short Stay Documentation Date of service: 05/07/20 Narrative H&P: See H&P - History H&P: obtained from office - Allergies and Medications Current Medications: Allergies dairy products Adverse Reaction (Uncoded 02/20/20 10:26) Unknown Home Medications Medication Instructions Recorded Confirmed Last Taken Type Pantoprazole [Protonix TAB] 20 mg PO QDAY #30 tablet. 03/29/19 05/07/20 05/06/20 08:00 Rx Metoprolol Succinate 200 mg PO DAILY 10/27/19 05/07/20 05/06/20 08:00 History Valsartan 320 mg PO DAILY 10/27/19 05/07/20 05/06/20 20:00 History amLODIPine 10 mg PO DAILY 10/27/19 05/07/20 05/06/20 08:00 History Dialyvite Chewable Probiotic 1 tab PO TID 01/01/20 05/07/20 05/06/20 20:00 History traMADoL [Ultram 50 MG tab] 50 mg PO Q6HR PRN 01/01/20 05/07/20 12/31/19 History 50 mg AtorvaSTATin [Lipitor] 10 mg PO QHS 02/22/20 05/07/20 05/06/20 08:00 History Ondansetron [Zofran Odt] 4 mg PO Q8HR 02/22/20 05/07/20 Unknown History Promethazine [Phenergan] 25 mg [place] Q6HR PRN #12 supp.rect 02/22/20 05/07/20 02/22/20 08:00 Rx Ondansetron [Zofran Odt] 4 mg PO Q8HR PRN #14 tab.rapdis 02/27/20 05/07/20 Unknown Rx Active Medications Hydromorphone HCl (Hydromorphone 1 Mg/1 Ml Inj) 0.25 mg IV Q10MIN PRN PRN Reason: Pain, Moderate (4-6) Stop: 05/07/20 23:00 Hydromorphone HCl (Hydromorphone 1 Mg/1 Ml Inj) 0.5 mg IV Q10MIN PRN PRN Reason: Pain , Severe (7-10) Stop: 05/07/20 23:00 Sodium Chloride (Nacl 0.9% 1000 Ml) 1,000 mls @ 42 mls/hr IV DIRECT SALTY Last Admin: 05/07/20 11:00 Dose: 42 mls/hr Documented by: Ondansetron HCl (Ondansetron 4 Mg/2 Ml Inj) 4 mg IV ONCE PRN PRN Reason: Nausea And Vomiting Stop: 05/07/20 16:00 - Brief post op/procedure progress note Date of procedure: 05/07/20 Pre-op diagnosis: Complications of Dialysis Access Post-op diagnosis: same Procedure: Revision of Left Arm Arteriovenous Graft with Interposition 7 mm Bovine Artegraft Anesthesia: GETA Surgeon: DANY RHOADES Estimated blood loss: other (150 ml) Pathology: none Condition: stable - Disposition Condition at discharge: Good Disposition: DC/[place]-03 [facility] Short Stay Discharge Plan Activity: other (No pulling by left arm fro 2 weeks) Wound: open to air, keep clean and dry, other (Okay to wash the wounds with soap and water but do not soak in water for 2 weeks.) Follow up with: DANY RHOADES MD [Staff Physician] - 14 Days Prescriptions: HYDROcodone/APAP 5-325 [[place] 5/325] 1 each PO Q6HR PRN #30 tablet PRN Reason: Pain
--- NOTE | 2020-05-07 14:30 | Operative Report ---
Operative Report Operative Report: Date of Procedure: 05/07/2020 Pre-operative Diagnosis: Complications of Dialysis Access Post-operative Diagnosis: Same Procedure(s): 1. Revision of Left Arm Arteriovenous Graft with Interposition 7 mm Bovine Artegraft Surgeon: All No M.D. Manager Call: None Anesthesia: General Endotracheal Anesthesia EBL: 150 mL Counts: Correct Complications: None Condition: Stable Findings: The graft had a palpable thrill at the completion of the case. It was also discovered during the case that the venous limb was the bottom limb and the arterial limb is the top plan meaning that the graft is flipped. Specimen: None Indication: The patient is a 60-year-old female with a history of end-stage renal disease who is currently on hemodialysis through a right internal jugular permacath. She has a left arm arteriovenous graft that is unable to be used secondary to upper extremity contractions. She is in need of revision of the graft to reroute the graft and a more lateral configuration to allow for access. Her son was given the risk, benefits, and alternative procedures and consented to the p rocedure. Description of Procedure: The patient was brought to the operating room and laid in supine position. After general endotracheal esthesia was achieved her left arm was prepped and draped in normal sterile fashion. A longitudinal incision was created in the upper arm over the graft near the distal curve. Cautery was used to take the incision down towards the graft and sharp dissection was used to dissect the graft circumferentially and the graft was then controlled with a vessel loop. I then used a 10 blade to create a longitudinal incision near the axillary crease, through a previous incision and attempted to identify the graft at the venous anastomosis however I was unable to identify the graft. I did identify an old arteriovenous graft that had been ligated. At this point I planned to ligate what I believed to be the arterial inflow of the graft and created an end-to-end anastomosis to the arterial inflow and then created new anastomosis to the axillary vein. I dissected the axillary vein circumferentially controlled with a vessel loop. I then used a Cynthia-Wick tunneler to tunnel from the incision in the arm near the antecubital crease ensuring that I tunneled lateral out onto the bicep towards the axillary crease. I then connected the 7 mm bovine Artegraft to the Cynthia-Wick tunneler and pulled it back through the tunnel. I infused with heparinized saline to ensure that it had not kinked or twisted. I then beveled the end of the bovine Artegraft and clamped the inflow of the previous graft and what I believed to be the arterial inflow with an angled DeBakey clamp I used a 2-0 silk to ligate the the other hand. I transected the graft and beveled the and then created an end-to-end anastomosis between the indwelling graft and the bovine Artegraft using two 5-0 Prolene's in running fashion. After completing the anastomosis I released the clamp and noted that there was no pulsatile flow in the graft. At this point I systemically heparinized the patient with 3000 units of heparin IV and then used a 4 Wyatt to perform a thrombectomy. I passed a 4 Wyatt multiple times and retrieved thrombus however did not have arterial inflow. After several passes the balloon ruptured requiring an additional 4 Wyatt and again resulted in rupture of the balloon. I then used a 6 Wyatt and again there was a rupture of the balloon so I used a 4 to 6 mm Wyatt adherent graft catheter which again did not result in pulsatile flow however there was a steady stream of dark backbleeding. At this point I realized that this was the venous limb and that the previous graft had been placed with the arterial limb as the top plan. I flushed the graft with heparinized saline and clamped the graft near the anastomosis and dissected the axillary artery circumferentially and the axillary incision. I cut my graft to length and beveled the and and clamped the axillary artery with 2 angled DeBakey clamps and created an arteriotomy using an 11 blade and Polo scissors. I then created an end-to-side anastomosis using a 6-0 Prolene in running fashion. Prior to completing anastomosis I passed a 4 Wyatt through the graft and performed a thrombectomy retrieving a significant amount of thrombus and then had venous backbleeding. I then completed the anastomosis and removed all clamps allowing flow through the graft which had a palpable thrill. Hemostasis in both wounds was achieved with Quick Clot. Once hemostasis was achieved the wounds were anesthetized with 0.5% Marcaine and then closed in 2 layers using a 3-0 Vicryl in a running fashion in the deep dermal layer and a 4 Monocryl in running fashion in the subcuticular layer and then dressed with Dermabond. The patient tolerated the procedure well. All sponge, needle, and instrument counts were correct. The patient was taken to the recovery area in stable condition.
[2020-05-07 15:37] VITALS: BP 138/56
--- NOTE | 2020-05-07 18:40 | Post Anesthesia Evaluation ---
- Post Anesthesia Evaluation Patient Participated: Yes Airway Patent: Yes Stable Respiratory Function: Yes Nausea/Vomiting: No Temp > 96.8F: Yes Pain Manageable: Yes Adequeate Hydration: Yes Anesthesia Complications: No Block Receding Appropriately: Not Applicable Patient on Ventilator: No
== END 2020-05-07 17:35 ==
LOC: OR 07:48
PROVIDERS: ATTEND Surgery Vascular Surgery
DX: T82.898A Other specified complication of vascular prosthetic devices, implants and grafts, initial encounter (principal); I12.0 Hypertensive chronic kidney disease with stage 5 chronic kidney disease or end stage renal disease; E11.22 Type 2 diabetes mellitus with diabetic chronic kidney disease; N18.6 End stage renal disease; E78.00 Pure hypercholesterolemia, unspecified; K21.9 Gastro-esophageal reflux disease without esophagitis; M19.90 Unspecified osteoarthritis, unspecified site; F03.90 Unspecified dementia, unspecified severity, without behavioral disturbance, psychotic disturbance, mood disturbance, and anxiety; Z80.0 Family history of malignant neoplasm of digestive organs; Z88.8 Allergy status to other drugs, medicaments and biological substances; Z79.899 Other long term (current) drug therapy; Z87.440 Personal history of urinary (tract) infections; Z98.890 Other specified postprocedural states; Z91.81 History of falling; Z82.5 Family history of asthma and other chronic lower respiratory diseases; Z82.49 Family history of ischemic heart disease and other diseases of the circulatory system; Y92.89 Other specified places as the place of occurrence of the external cause; Y82.8 Other medical devices associated with adverse incidents
CPT/HCPCS: 36415; 36832; 80048; 82962; 85027; C1757; C1768; J0690; J1100; J1644; J2001; J2370; J2405; J2704; J3010; J3490; J7030; J7040; J7050